=== PATIENT | male | born 1950 | race American Indian/Alaskan Native ===

== ENCOUNTER 2016-11-21 13:14 | Emergency (ER) | payer MEDICAID ==
[2016-11-21] MEDS ORDERED: TYLENOL #3 PO ONE (14:23)
--- NOTE | 2016-11-21 14:28 | Emergency Department Report ---
ED Fall HPI - General Chief Complaint: Fall Stated Complaint: FALL Time Seen by Provider: 11/21/16 14:04 Source: patient, EMS (ems notes not available at time of chart dictation), RN notes reviewed, old records reviewed Mode of arrival: Stretcher Limitations: Physical Limitation - History of Present Illness Initial Comments: This is a 66-year-old male. He is previously known to me. Patient has a past medical history of congestive heart failure, cardiomyopathy with ICD, heart disease, seizure, stroke, atrial flutter, he currently reports that he is on systemic anticoagulation; eliquis Patient reports a mechanical fall yesterday where he slipped, landed on his left knee, and landed on his back. He did not hit his head. He did not hit his neck. Prior to the fall, there was no headache, neck pain, chest pain, abdominal pain, shortness of breath. MD Complaint: fall -: Sudden Fall From: standing When Fall Occurred: # days EM[employer] (1) Fall Witnessed: no Place Fall Occurred: home Loss of Consciousness: none Prolonged Down Time?: no Symptoms Prior to Fall: none Location: back Location - Extremities: Left: Knee Severity: moderate Quality: aching Context: tripped/slipped Associated Symptoms: denies: headache, neck pain, numbness, weakness, chest paint, shortness of breath, abdominal pain, hematuria, lightheaded, vertigo, confusion - Related Data Home Medications Medication Instructions Recorded Confirmed Last Taken Atorvastatin [Lipitor] 20 mg PO DAILY 06/09/14 05/10/15 05/05/15 21:00 Isosorbide Dinitrate 30 mg PO DAILY 06/09/14 05/10/15 05/09/15 09:00 Metoprolol [Lopressor TAB] 50 mg PO BID 06/09/14 05/10/15 05/09/15 21:00 Previous Rx's Medication Instructions Recorded Last Taken Type Nitroglycerin [Nitrostat] 0.4 mg SL Q5M PRN #30 tab 06/29/14 05/09/15 23:30 Rx Apixaban [Eliquis] 5 mg PO BID #60 tablet 05/10/15 Unknown Rx Atorvastatin Calcium [Lipitor] 20 mg PO QDAY #31 tablet 05/10/15 Unknown Rx HYDROcodone/APAP 5-325 [[place] 1 each PO Q6HR PRN #10 tablet 05/10/15 Unknown Rx 5/325] levETIRAcetam [Keppra TAB] 2,000 mg PO BID #60 tablet 05/10/15 Unknown Rx Perampanel [Fycompa] 8 mg PO DAILY #30 tablet 07/04/15 Unknown Rx traMADol [Ultram 50 MG tab] 50 mg PO Q4HR PRN #20 tablet 04/11/16 Unknown Rx Allergies Allergy/AdvReac Type Severity Reaction Status Date / Time No Known Allergies Allergy Verified 11/21/16 13:29 ED Review of Systems ROS: Stated complaint: FALL Other details as noted in HPI Constitutional: denies: fever, malaise Eyes: denies: vision change ENT: denies: epistaxis Respiratory: denies: cough Cardiovascular: denies: chest pain Gastrointestinal: denies: abdominal pain Musculoskeletal: back pain, joint swelling, arthralgia, myalgia Skin: denies: lesions Neurological: weakness (chronic) ED Past Medical Hx - Past Medical History Hx Hypertension: Yes (20 yrs.; hx CVA) 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) Hx Heart Attack/AMI: Yes (2006) Hx Congestive Heart Failure: Yes Hx Diabetes: No Hx GERD: Yes Hx Liver Disease: Yes (old history) Hx Headaches / Migraines: Yes Hx Seizures: Yes (seizure Feb 2013; took seizure medicine this am) Hx Asthma: No Hx COPD: No Hx HIV: (by the feel better) Additional medical history: defibrillator; left sided weakness - Surgical History Hx Open Heart Surgery: Yes Hx Pacemaker: Yes (LEFT ) Hx Internal Defibrillator: Yes (arrhythmia-atrial tachycardia) Additional Surgical History: "heart surgery", exploratory laparotomy secondary to "busted intestines" - Social History Smoking Status: Current Every Day Smoker Substance Use Type: Alcohol - Medications Home Medications: Home Medications Medication Instructions Recorded Confirmed Last Taken Type Atorvastatin [Lipitor] 20 mg PO DAILY 06/09/14 05/10/15 05/05/15 21:00 History Isosorbide Dinitrate 30 mg PO DAILY 06/09/14 05/10/15 05/09/15 09:00 History Metoprolol [Lopressor TAB] 50 mg PO BID 06/09/14 05/10/15 05/09/15 21:00 History Nitroglycerin [Nitrostat] 0.4 mg SL Q5M PRN #30 tab 06/29/14 05/10/15 05/09/15 23:30 Rx Apixaban [Eliquis] 5 mg PO BID #60 tablet 05/10/15 Unknown Rx Atorvastatin Calcium [Lipitor] 20 mg PO QDAY #31 tablet 05/10/15 Unknown Rx HYDROcodone/APAP 5-325 [[place] 1 each PO Q6HR PRN #10 tablet 05/10/15 Unknown Rx 5/325] levETIRAcetam [Keppra TAB] 2,000 mg PO BID #60 tablet 05/10/15 Unknown Rx Perampanel [Fycompa] 8 mg PO DAILY #30 tablet 07/04/15 Unknown Rx traMADol [Ultram 50 MG tab] 50 mg PO Q4HR PRN #20 tablet 04/11/16 Unknown Rx ED Physical Exam - General Limitations: Physical Limitation General appearance: alert, in no apparent distress - Head Head exam: Present: atraumatic, normocephalic - Eye Eye exam: Present: normal appearance, EOMI. Absent: nystagmus - ENT ENT exam: Present: normal exam, normal orophraynx, mucous membranes moist, normal external ear exam - Neck Neck exam: Present: normal inspection, full ROM. Absent: tenderness, meningismus - Respiratory Respiratory exam: Present: normal lung sounds bilaterally. Absent: respiratory distress, wheezes, rales, rhonchi, stridor, chest wall tenderness - Cardiovascular Cardiovascular Exam: Present: regular rate, irregular rhythm, normal heart sounds. Absent: systolic murmur, diastolic murmur, rubs, gallop - GI/Abdominal GI/Abdominal exam: Present: soft, normal bowel sounds. Absent: distended, tenderness, guarding, rigid, pulsatile mass - Rectal Rectal exam: Present: deferred - Extremities Exam Extremities exam: Present: normal inspection, full ROM, tenderness (the left knee is tender.), normal capillary refill, other (pelvis is stable. 2+ pulses noted in 4 extremities. The compartments are soft. There is no long bony tenderness.). Absent: pedal edema, joint swelling - Back Exam Back exam: Present: normal inspection, paraspinal tenderness. Absent: tenderness - Neurological Exam Neurological exam: Present: alert, oriented X3, other (Extraocular movements intact. Tongue midline. No facial droop. Facial sensation intact to light touch in the V1, V2, V3 distribution bilaterally. 5 and 5 strength in 4 extremities.. Sensation is intact to light touch in 4 extremities.). Absent: motor sensory deficit - Psychiatric Psychiatric exam: Present: normal affect, normal mood - Skin Skin exam: Present: warm, dry, intact, normal color. Absent: rash ED Course Vital Signs 11/21/16 11/21/16 11/21/16 13:42 13:50 14:00 Temperature Pulse Rate 95 H 84 102 H Respiratory 13 20 18 Rate Blood Pressure 57/28 130/71 Blood Pressure [Right] O2 Sat by Pulse 98 99 Oximetry 11/21/16 11/21/16 11/21/16 14:08 14:10 14:20 Temperature 97.9 F Pulse Rate 84 93 H 70 Respiratory 18 18 18 Rate Blood Pressure 154/67 154/67 Blood Pressure 130/71 [Right] O2 Sat by Pulse 100 98 99 Oximetry 11/21/16 11/21/16 11/21/16 15:38 16:00 18:00 Temperature 98.5 F 97.5 F L Pulse Rate 78 78 Respiratory 14 16 16 Rate Blood Pressure Blood Pressure 142/60 145/58 [Right] O2 Sat by Pulse 98 98 Oximetry ED Medical Decision Making - Lab Data Vital Signs 11/21/16 11/21/16 11/21/16 13:42 13:50 14:00 Temperature Pulse Rate 95 H 84 102 H Respiratory 13 20 18 Rate Blood Pressure 57/28 130/71 Blood Pressure [Right] O2 Sat by Pulse 98 99 Oximetry 11/21/16 11/21/16 11/21/16 14:08 14:10 14:20 Temperature 97.9 F Pulse Rate 84 93 H 70 Respiratory 18 18 18 Rate Blood Pressure 154/67 154/67 Blood Pressure 130/71 [Right] O2 Sat by Pulse 100 98 99 Oximetry 11/21/16 15:38 Temperature Pulse Rate Respiratory 14 Rate Blood Pressure Blood Pressure [Right] O2 Sat by Pulse Oximetry - EKG Data -: EKG Interpreted by Wy - EKG Data 11/21/16 17:04 atrial flutter, variable conduction, normal axis, QTC 422 ms, nonspecific ST abnormalities in the anteroseptal leads, appears unchanged when compared to prior from 2015 - Radiology Data Radiology results: report reviewed, image reviewed Noncontrast CT scan of the brain negative for traumatic disease. Noncontrast CT scan of the abdomen and pelvis negative. X-ray of the left knee suggests medial eminence fracture. X-ray of the pelvis negative for fracture; this is specifically discussed with the radiologist of record, Dr. Liriano, who compared the patient's x-ray to CAT scan. - Medical Decision Making Differential diagnosis: Fracture, dislocation, sprain, strain, intracranial hemorrhage, retroperitoneal hematoma Assessment and plan: 66-year-old male status post mechanical fall last night. He is afebrile with through sure vital signs with no chest pain or shortness of breath. EKG morphologically abnormal, appears unchanged when compared to prior , with the exception that he is now in flutter, and he takes systemic anticoagulation. He has a GCS of 15, with an NIH score of 0, and is clinically sober at this time. CT scan of the brain and abdomen/pelvis exclude retroperitoneal hematoma and intracranial hemorrhage. Patient will be placed in a knee immobilizer, he will be given crutches, and he is instructed to follow up with outpatient orthopedics. Return precautions are reviewed. Critical care attestation.: If time is entered above; I have spent that time in minutes in the direct care of this critically ill patient, excluding procedure time. ED Disposition Clinical Impression: Left knee pain, Fall Disposition: DC-01 TO HOME OR SELFCARE Is pt being admited?: No Does the pt Need Aspirin: No Condition: Stable Instructions: Arthralgia (ED) Additional Instructions: X-ray demonstrated probable left knee small medial eminence fracture. Weightbearing as tolerated, use the crutches and knee immobilizer as directed. Follow-up with the orthopedic surgeon as directed. Follow-up with orthopedic surgeon within the next week. Follow up with her rope cutter within the next month. Return to the ER right away with neck pain, chest pain, shortness of breath, abdominal pain, confusion, intractable nausea or vomiting, inability to tolerate liquid feeds. Take acetaminophen, 650 mg, every 4-6 hours as needed for pain. Referrals: PRIMARY CARE, [Primary Care Provider] - 3-5 Days TEE PALMA MD [Staff Physician] - 3-5 Days VEENA FIELDS MD [Staff Physician] - 3-5 Days
--- NOTE | 2016-11-21 15:11 | Cat Scan Report ---
CT HEAD WITHOUT CONTRAST INDICATION: Fall. COMPARISON: 03/05/2013. FINDINGS: Noncontrast head CT again demonstrates approximately 3.5 x 5.5 cm frontoparietal encephalomalacia superiorly, axial image 44, series 2 and a smaller, approximately 2.5 cm right frontal encephalomalacia more anteriorly, image 37. White matter hypodensities on the right and mild ex-vacuo dilatation of the right lateral ventricle again noted. Normal remainder ventricles. Stable enlarged sulci with bifrontal extra-axial CSF spaces measuring approximately 1 cm, axial image 33, series 2. No definite acute infarct, hemorrhage, mass effect or midline shift. Normal posterior fossa with preserved basilar cisterns. Unremarkable eye globes. Bilateral orbital floor old deformity/fractures again not excluded. An opacified ethmoid air cell on the left posteriorly again seen. Clear remainder imaged paranasal sinuses and mastoid air cells. Extensive atherosclerotic ICA and vertebral artery calcifications bilaterally. Normal calvarium and scalp. Few missing teeth. CONCLUSION: No acute intracranial CT abnormality or significant interval change, as detailed above. Thank you for the opportunity to participate in this patient's care.
--- NOTE | 2016-11-21 15:25 | Cat Scan Report ---
CT ABDOMEN AND PELVIS WITHOUT CONTRAST INDICATION: Fall. COMPARISON: None similar. FINDINGS: Noncontrast abdomen and pelvis CT performed. LUNG BASES: Mild cardiomegaly. Streak artifact from pacer leads. Few coronary and aortic atherosclerotic calcifications. Nonspecific distal esophageal wall prominence/thickening, not excluded for gastroesophageal reflux and/or hiatal hernia, amongst others. ABDOMEN: Please note that sensitivity to detect small visceral lesions is limited due to the absence of intravenous or oral contrast. Approximately 3 cm posterior right hepatic heterogeneous calcification as on axial image 103, series 2. Few other small hepatic calcifications also noted measuring up to 6 mm as on axial image 124. Otherwise grossly unremarkable unenhanced liver, spleen, gallbladder, pancreas, adrenals, nonaneurysmal abdominal aorta with atherosclerotic aortoiliac calcifications and IVC. At least 2 nonobstructing renal calculi noted inferiorly measuring up to 2 mm. Unremarkable left kidney. Retroaortic left renal vein. No ascites or size significant adenopathy. Nonopacified GI tract evaluation limited, though grossly nonobstructive. Possible appendectomy changes. PELVIS: Approximately 1.3 cm benign, peripheral calcificatio/density in the left lower quadrant on axial image 275, series 2. Small prostatic calcifications. Few pelvic phleboliths. Grossly unremarkable non-opacified urinary bladder, seminal vesicles, prostate and rectosigmoid. No free fluid or significant adenopathy. Sternotomy wires. Slight lumbar degenerative spurring. CONCLUSION: No acute CT abnormality on this limited, unenhanced exam with various incidental findings, as above. Thank you for the opportunity to participate in this patient's care.
--- NOTE | 2016-11-21 15:32 | XRay Report ---
Pelvis: Fall, pain. AP view of the pelvis raises suspicion of a possible fracture at the right ischial acetabular junction. On one projection there is suspicion that there could be a cortical fracture of the lateral femoral head on the right but this is not supported on the second projection. No additional findings. Impressions: Suspicion of right pelvic fracture. Clinical correlation to this side recommended. Left knee: Fall, pain. There is suspicion of a fracture line in the medial eminence of the tibial plateau. The knee joint space is otherwise unremarkable. The articular margins are smooth and there is good alignment and preservation of the joint spaces. The bones are well-mineralized. There is irregular sclerosis of the tibial metaphysis most likely representing an infarct. There is significant vascular calcification. Impression: Suspicion of medial eminence fracture.
[2016-11-21 18:23] VITALS: BP 145/58
== END 2016-11-21 18:00 | disposition home or self-care (01) ==
LOC: ED 13:14
DX: M25.562 Pain in left knee (principal); I10 Essential (primary) hypertension; I25.2 Old myocardial infarction; I50.9 Heart failure, unspecified; K21.9 Gastro-esophageal reflux disease without esophagitis; G43.909 Migraine, unspecified, not intractable, without status migrainosus; F17.200 Nicotine dependence, unspecified, uncomplicated; W18.30XA Fall on same level, unspecified, initial encounter; Y93.9 Activity, unspecified; Y92.9 Unspecified place or not applicable; Y99.9 Unspecified external cause status
CPT/HCPCS: 70450; 72170; 74176; 93005; 93010

== ENCOUNTER 2017-03-31 10:07 | Inpatient (IN) | payer MEDICAID ==
[2017-03-31] MEDS ORDERED: ATIVAN ONE (11:09)
[2017-03-31] MEDS ORDERED: KEPPRA 1,000 MG/NS 0.75% 100ML 1,000 MG/100 ML BAG IV ONE ×2 (11:10→11:11)
[2017-03-31] MEDS ORDERED: ATIVAN IV ONE (11:11)
[2017-03-31] MEDS ORDERED: NORMODYNE IV ONE (11:13)
--- NOTE | 2017-03-31 11:40 | Cat Scan Report ---
CT HEAD WITHOUT CONTRAST: HISTORY: Stroke. TECHNIQUE: Sequential 2.5mm CT images. COMPARISON: 11/21/16. FINDINGS: Mild diffuse volume loss, mild chronic white matter changes, and multiple chronic infarcts in the right MCA distribution are unchanged since the previous examination. The largest area of infarct in the right parietal lobe measures up to 6.1 x 4.0 cm in axial plane There is no evidence for hemorrhage, mass, extra-axial fluid collection or hydrocephalus. The calvarium, visualized paranasal sinuses and mastoid air cells are clear. IMPRESSION: Chronic findings as outlined above which are unchanged since 11/21/16. No acute intracranial process appreciated. These findings were discussed with Dr. Parra in the emergency department at 1133 hrs.
--- NOTE | 2017-03-31 12:06 | XRay Report ---
AP CHEST: HISTORY: Hypertension Pacemaker device is unchanged in 11/14/14. Mild cardiomegaly is stable. Mild pulmonary venous congestion has developed. The lungs are clear. No evidence for pneumonia, CHF or pneumothorax. IMPRESSION: Mild cardiomegaly and pulmonary venous congestion but no CHF.
[2017-03-31 12:16] LABS: Basophils % (Auto) 0.5 % (0.0-1.8); Eosinophils % (Auto) 0.3 % (0.0-4.3); Hematocrit 48.5 % (35.5-45.6); Mean Corpuscular HGB Conc 33 % (32-34); Mean Corpuscular Hemoglobin 34 pg (28-32); Mean Corpuscular Volume 102 fl (84-94); Platelet Count 177 K/mm3 (140-440); Red Blood Count 4.78 M/mm3 (3.65-5.03); Red Cell Distribution Width 14.4 % (13.2-15.2); White Blood Count 9.4 K/mm3 (4.5-11.0)
[2017-03-31 12:16] LABS: Urine Drugs of Abuse Note Disclamer
[2017-03-31 12:32] LABS: INR 1.24 (0.87-1.13)
[2017-03-31 12:33] LABS: Partial Thromboplastin Time 33.5 Sec. (24.2-36.6)
[2017-03-31 12:37] LABS: Creatine Kinase MB 3.3 ng/mL (0.0-4.0)
[2017-03-31 12:37] LABS: Bacteria,Urine 1+ /HPF (Negative); Bilirubin,Urine NEG (Negative); Blood,Urine SM (Negative); Ketones,Urine TR mg/dL (Negative); Leukocyte Esterase,Urine TR (Negative); Nitrite,Urine NEG (Negative); Urobilinogen,Urine < 2.0 mg/dL (<2.0)
[2017-03-31 12:39] LABS: Anion Gap 23 mmol/L; BUN/Creatinine Ratio 13; Blood Urea Nitrogen 13 mg/dL (9-20); Calcium 8.5 mg/dL (8.4-10.2); Carbon Dioxide 20 mmol/L (22-30); Chloride 100.1 mmol/L (98-107); Creatine Kinase 117 units/L (55-170); Glucose 133 mg/dL (75-100); Potassium 3.8 mmol/L (3.6-5.0); Sodium 139 mmol/L (137-145)
[2017-03-31] MEDS ORDERED: VITAMIN B-1 100 MG, FOLVITE 1 MG, INFUVITE 10 ML in NACL 0.9% 1000 ML 1,000 ML IV ONE (13:02)
--- NOTE | 2017-03-31 13:12 | Emergency Department Report ---
ED General Adult HPI - General Chief complaint: Seizure Stated complaint: SEIZURE Time Seen by Provider: 03/31/17 11:08 Source: patient, EMS Mode of arrival: Stretcher Limitations: No Limitations - History of Present Illness Initial comments: This patient was brought to my attention by the charge nurse who had a suspicion of pseudoseizures. He was in the hallway at that time. He was having left sided focal seizures and was awake. He also had apparent left- sided weakness. He was still having active ecstasy although it was partial. He was able to tell me that he is a daily drinker of beer. He was also able to tell me that he takes Keppra and that he's had seizures just like this before. In fact he was able to state that he had previous strokes and ordinarily had left-sided weakness but is able to ambulate. With all of this going on and in the interest of expediting his care because stroke was called. 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 He is not a candidate for TPA. However again his care was expedited. He was given Ativan a Keppra IV which was effective in controlling his apparent focal seizures. -: minutes(s), hour(s) Severity scale (0 -10): 0 - Related Data Home Medications Medication Instructions Recorded Confirmed Last Taken Atorvastatin [Lipitor] 20 mg PO DAILY 06/09/14 05/10/15 05/05/15 21:00 Metoprolol [Lopressor TAB] 50 mg PO BID 06/09/14 05/10/15 05/09/15 21:00 Amiodarone [Cordarone 200 MG TAB] 200 mg PO QDAY 03/31/17 03/31/17 Unknown ISOSORBIDE MONOnitrate [Imdur ER] 30 mg PO QDAY 03/31/17 03/31/17 03/31/17 Lisinopril [Zestril TAB] 2.5 mg PO QDAY 03/31/17 03/31/17 03/31/17 Previous Rx's Medication Instructions Recorded Last Taken Type Nitroglycerin [Nitrostat] 0.4 mg SL Q5M PRN #30 tab 06/29/14 05/09/15 23:30 Rx Apixaban [Eliquis] 5 mg PO BID #60 tablet 05/10/15 Unknown Rx levETIRAcetam [Keppra TAB] 2,000 mg PO BID #60 tablet 05/10/15 Unknown Rx Allergies Allergy/AdvReac Type Severity Reaction Status Date / Time No Known Allergies Allergy Verified 11/21/16 13:29 ED Review of Systems ROS: Stated complaint: SEIZURE Other details as noted in HPI Constitutional: denies: chills, fever Eyes: denies: eye pain, eye discharge, vision change ENT: denies: ear pain, throat pain Respiratory: denies: cough, shortness of breath, wheezing Cardiovascular: denies: chest pain, palpitations Endocrine: no symptoms reported Gastrointestinal: denies: abdominal pain, nausea, diarrhea Genitourinary: denies: urgency, dysuria Musculoskeletal: denies: back pain, joint swelling, arthralgia Skin: denies: rash, lesions Neurological: as per HPI, other. 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) Hx Heart Attack/AMI: Yes (2006) Hx Congestive Heart Failure: Yes Hx Diabetes: No Hx GERD: Yes Hx Liver Disease: Yes (old history) Hx Headaches / Migraines: Yes Hx Seizures: Yes (seizure Feb 2013; took seizure medicine this am) Hx Asthma: No Hx COPD: No Hx HIV: (by the feel better) Additional medical history: defibrillator; left sided weakness - Surgical History Past Surgical History?: Yes Hx Open Heart Surgery: Yes Hx Pacemaker: Yes (LEFT ) Hx Internal Defibrillator: Yes (arrhythmia-atrial tachycardia) Additional Surgical History: "heart surgery", exploratory laparotomy secondary to "busted intestines" - Social History Smoking Status: Current Every Day Smoker Substance Use Type: Alcohol - Medications Home Medications: Home Medications Medication Instructions Recorded Confirmed Last Taken Type Atorvastatin [Lipitor] 20 mg PO DAILY 06/09/14 05/10/15 05/05/15 21:00 History Metoprolol [Lopressor TAB] 50 mg PO BID 06/09/14 05/10/15 05/09/15 21:00 History Nitroglycerin [Nitrostat] 0.4 mg SL Q5M PRN #30 tab 06/29/14 05/10/15 05/09/15 23:30 Rx Apixaban [Eliquis] 5 mg PO BID #60 tablet 05/10/15 Unknown Rx levETIRAcetam [Keppra TAB] 2,000 mg PO BID #60 tablet 05/10/15 Unknown Rx Amiodarone [Cordarone 200 MG TAB] 200 mg PO QDAY 03/31/17 03/31/17 Unknown History ISOSORBIDE MONOnitrate [Imdur ER] 30 mg PO QDAY 03/31/17 03/31/17 03/31/17 History Lisinopril [Zestril TAB] 2.5 mg PO QDAY 03/31/17 03/31/17 03/31/17 History ED Physical Exam - General General appearance: alert, in no apparent distress - Head Head exam: Present: atraumatic, normocephalic - Eye Eye exam: Present: normal appearance. Absent: scleral icterus - ENT ENT exam: Present: mucous membranes moist - Neck Neck exam: Present: normal inspection. Absent: tenderness, meningismus - Respiratory Respiratory exam: Present: normal lung sounds bilaterally. Absent: respiratory distress - Cardiovascular Cardiovascular Exam: Present: regular rate, normal rhythm. Absent: systolic murmur, diastolic murmur, rubs, gallop - GI/Abdominal GI/Abdominal exam: Present: soft, normal bowel sounds. Absent: distended, tenderness, guarding, rebound - Rectal Rectal exam: Present: deferred - Extremities Exam Extremities exam: Present: normal inspection - Back Exam Back exam: Present: normal inspection - Neurological Exam Neurological exam: Present: alert, oriented X3, motor sensory deficit (the patient does appear to have a left hemiparesis although he is having tonic- clonic movements at the time of my exam). Absent: CN II-XII intact (perhaps a very mild left facial paresis vs asymmetry) - Psychiatric Psychiatric exam: Present: anxious, flat affect - Skin Skin exam: Present: warm, dry, intact, normal color. Absent: rash ED Course Vital Signs 03/31/17 03/31/17 03/31/17 10:10 11:35 12:00 Pulse Rate 121 H 86 91 H Respiratory 22 19 19 Rate Blood Pressure 195/115 105/60 101/61 O2 Sat by Pulse 93 82 L 92 Oximetry 03/31/17 03/31/17 03/31/17 12:01 13:00 14:00 Pulse Rate 78 76 Respiratory 22 20 18 Rate Blood Pressure 105/66 111/66 O2 Sat by Pulse 93 100 99 Oximetry 03/31/17 14:30 Pulse Rate 71 Respiratory 15 Rate Blood Pressure 99/61 O2 Sat by Pulse 100 Oximetry - Reevaluation(s) Reevaluation #1: Was given Ativan and Keppra. His seizures resolved. A CT of his head that showed 3 old lacunar infarcts in the MCA area on the right which would clinically correlate with left-sided weakness. On serial neurological exam the patient had just 4+ over 5 left-sided weakness and really not a lot of drift either. I do think this is clearly chronic. The patient confirms that he has been weak in the left side since his previous stroke. His weakness has improved since his apparent focal seizures. 03/31/17 15:51 ED Medical Decision Making - Lab Data Result diagrams: 03/31/17 11:43 03/31/17 11:43 Laboratory Results - last 24 hr 03/31/17 03/31/17 03/31/17 11:43 11:43 11:43 WBC 9.4 RBC 4.78 Hgb 16.0 H Hct 48.5 H MCV 102 H MCH 34 H MCHC 33 RDW 14.4 Plt Count 177 Lymph % (Auto) 9.3 L Powell % (Auto) 6.9 Eos % (Auto) 0.3 Baso % (Auto) 0.5 Lymph # 0.9 L Powell # 0.7 Eos # 0.0 Baso # 0.1 Seg Neutrophils % 83.0 H Seg Neutrophils # 7.8 H PT 16.3 H INR 1.24 H APTT 33.5 Thrombin Time 17.2 Sodium 139 Potassium 3.8 Chloride 100.1 Carbon Dioxide 20 L Anion Gap 23 BUN 13 Creatinine 1.0 Estimated GFR > 60 BUN/Creatinine Ratio 13 Glucose 133 H POC Glucose Calcium 8.5 Magnesium Ammonia Total Creatine Kinase 117 CK-MB (CK-2) 3.3 CK-MB (CK-2) Rel Index 2.8 Troponin T 0.024 NT-Pro-B Natriuret Pep Urine Color Urine Turbidity Urine pH Ur Specific Bulger Urine Protein Urine Glucose (UA) Urine Ketones Urine Blood Urine Nitrite Urine Bilirubin Urine Urobilinogen Ur Leukocyte Esterase Urine WBC (Auto) Urine RBC (Auto) U Epithel Cells (Auto) Urine Bacteria (Auto) Urine Opiates Screen Urine Methadone Screen Ur Barbiturates Screen Ur Phencyclidine Scrn Ur Amphetamines Screen U Benzodiazepines Scrn Urine Cocaine Screen U Marijuana (THC) Screen Plasma/Serum Alcohol Blood Type Antibody Screen 03/31/17 03/31/17 03/31/17 11:43 11:43 11:43 WBC RBC Hgb Hct MCV MCH MCHC RDW Plt Count Lymph % (Auto) Powell % (Auto) Eos % (Auto) Baso % (Auto) Lymph # Powell # Eos # Baso # Seg Neutrophils % Seg Neutrophils # PT INR APTT Thrombin Time Sodium Potassium Chloride Carbon Dioxide Anion Gap BUN Creatinine Estimated GFR BUN/Creatinine Ratio Glucose POC Glucose Calcium Magnesium 2.00 Ammonia Total Creatine Kinase CK-MB (CK-2) CK-MB (CK-2) Rel Index Troponin T NT-Pro-B Natriuret Pep Urine Color Urine Turbidity Urine pH Ur Specific Bulger Urine Protein Urine Glucose (UA) Urine Ketones Urine Blood Urine Nitrite Urine Bilirubin Urine Urobilinogen Ur Leukocyte Esterase Urine WBC (Auto) Urine RBC (Auto) U Epithel Cells (Auto) Urine Bacteria (Auto) Urine Opiates Screen Urine Methadone Screen Ur Barbiturates Screen Ur Phencyclidine Scrn Ur Amphetamines Screen U Benzodiazepines Scrn Urine Cocaine Screen U Marijuana (THC) Screen Plasma/Serum Alcohol < 0.01 Blood Type B POSITIVE Antibody Screen Negative 03/31/17 03/31/17 03/31/17 11:43 11:43 11:50 WBC RBC Hgb Hct MCV MCH MCHC RDW Plt Count Lymph % (Auto) Powell % (Auto) Eos % (Auto) Baso % (Auto) Lymph # Powell # Eos # Baso # Seg Neutrophils % Seg Neutrophils # PT INR APTT Thrombin Time Sodium Potassium Chloride Carbon Dioxide Anion Gap BUN Creatinine Estimated GFR BUN/Creatinine Ratio Glucose POC Glucose 136 H Calcium Magnesium Ammonia 82.0 H Total Creatine Kinase CK-MB (CK-2) CK-MB (CK-2) Rel Index Troponin T NT-Pro-B Natriuret Pep 555.8 Urine Color Urine Turbidity Urine pH Ur Specific Bulger Urine Protein Urine Glucose (UA) Urine Ketones Urine Blood Urine Nitrite Urine Bilirubin Urine Urobilinogen Ur Leukocyte Esterase Urine WBC (Auto) Urine RBC (Auto) U Epithel Cells (Auto) Urine Bacteria (Auto) Urine Opiates Screen Urine Methadone Screen Ur Barbiturates Screen Ur Phencyclidine Scrn Ur Amphetamines Screen U Benzodiazepines Scrn Urine Cocaine Screen U Marijuana (THC) Screen Plasma/Serum Alcohol Blood Type Antibody Screen 03/31/17 03/31/17 12:04 12:04 WBC RBC Hgb Hct MCV MCH MCHC RDW Plt Count Lymph % (Auto) Powell % (Auto) Eos % (Auto) Baso % (Auto) Lymph # Powell # Eos # Baso # Seg Neutrophils % Seg Neutrophils # PT INR APTT Thrombin Time Sodium Potassium Chloride Carbon Dioxide Anion Gap BUN Creatinine Estimated GFR BUN/Creatinine Ratio Glucose POC Glucose Calcium Magnesium Ammonia Total Creatine Kinase CK-MB (CK-2) CK-MB (CK-2) Rel Index Troponin T NT-Pro-B Natriuret Pep Urine Color Yellow Urine Turbidity Clear Urine pH 5.0 Ur Specific Bulger 1.020 Urine Protein 30 mg/dl Urine Glucose (UA) Neg Urine Ketones Tr Urine Blood Sm Urine Nitrite Neg Urine Bilirubin Neg Urine Urobilinogen < 2.0 Ur Leukocyte Esterase Tr Urine WBC (Auto) 6.0 Urine RBC (Auto) 7.0 U Epithel Cells (Auto) 1.0 Urine Bacteria (Auto) 1+ Urine Opiates Screen Presumptive negative Urine Methadone Screen Presumptive negative Ur Barbiturates Screen Presumptive negative Ur Phencyclidine Scrn Presumptive negative Ur Amphetamines Screen Presumptive negative U Benzodiazepines Scrn Presumptive negative Urine Cocaine Screen Presumptive negative U Marijuana (THC) Screen Presumptive negative Plasma/Serum Alcohol Blood Type Antibody Screen - EKG Data -: EKG Interpreted by Me EKG shows normal: sinus rhythm Rate: normal - EKG Data Interpretation: LVH, other (for lateral ST depression may be related to LVH slight high lateral T-wave inversion. Mild intraventricular conduction delay may be secondary to LVH.) - Radiology Data Radiology results: report reviewed interpreted by me: Chest x-ray shows pulmonary venous congestion but according to the radiologist no CHF. CT of the head shows old lacunar infarcts but no acute process. Critical care attestation.: If time is entered above; I have spent that time in minutes in the direct care of this critically ill patient, excluding procedure time. ED Disposition Clinical Impression: Hx of CABG, Focal seizures, Chronic liver disease, Hyperammonemia, Labile hypertension Cardiomyopathy Qualifiers: Cardiomyopathy type: unspecified Qualified Code(s): I42.9 - Cardiomyopathy, unspecified Disposition: 09 OP ADMIT IP TO THIS HOSP Is pt being admited?: Yes Does the pt Need Aspirin: Yes Condition: Stable Instructions: Hypertension (ED) Time of Disposition: 15:59
--- NOTE | 2017-03-31 14:01 | History and Physical Report ---
History of Present Illness Chief complaint: I had a seizure History of present illness: 66 YO Male with HTN, CVA with LHP, Liver Disease, CAD S/P CABG, Nicotine Dependence, ETOH Abuse, Seizure DO, CHF presents to ED for evaluation. Pt states that he experienced multiple seizures today. Pt denies fever, chills, CP , Palpitations, NVD, Syncope, Falls, Rash, leg pain, leg swelling, calf pain, hemoptysis, prolonged immobility, trauma, prolonged air/car travel, cough, recent ill contacts. Pt seen and evaluated in ED and found to have status epilepticus, and loaded with Keppra. Pt states that he drinks multiple beers daily, and his last drink was a few days ago. Pt denies auditory or visual hallucinations, tremors, diaphoresis. Past History Past Medical History: acute [place], GERD, heart failure, hypertension, migraines, seizures Past Surgical History: CABG, bowel surgery Social history: single Family history: hypertension Medications and Allergies Allergies Allergy/AdvReac Type Severity Reaction Status Date / Time No Known Allergies Allergy Verified 11/21/16 13:29 Home Medications Medication Instructions Recorded Confirmed Last Taken Type Atorvastatin [Lipitor] 20 mg PO DAILY 06/09/14 03/31/17 05/05/15 21:00 History Metoprolol [Lopressor TAB] 25 mg PO BID 06/09/14 03/31/17 05/09/15 21:00 History Nitroglycerin [Nitrostat] 0.4 mg SL Q5M PRN #30 tab 06/29/14 03/31/17 05/09/15 23:30 Rx Apixaban [Eliquis] 5 mg PO BID #60 tablet 05/10/15 03/31/17 03/31/17 Rx levETIRAcetam [Keppra TAB] 2,000 mg PO BID #60 tablet 05/10/15 03/31/17 Rx Amiodarone [Cordarone 200 MG TAB] 200 mg PO QDAY 03/31/17 03/31/17 Unknown History ISOSORBIDE MONOnitrate [Imdur ER] 30 mg PO QDAY 03/31/17 03/31/17 03/31/17 History Lisinopril [Zestril TAB] 2.5 mg PO QDAY 03/31/17 03/31/17 03/31/17 History Active Meds: Active Medications Thiamine HCl 100 mg/ Folic Acid 1 mg/ Multivitamins/Minerals 10 ml/ Sodium Chloride 1,011.2 mls @ 250 mls/hr IV ONCE.ED ONE Stop: 03/31/17 17:04 Last Admin: 03/31/17 12:50 Dose: 250 mls/hr Review of Systems Constitutional: no weight loss, no weight gain, no fever, no chills Ears, nose, mouth and throat: no ear pain, no ear discharge, no tinnitis, no decreased hearing, no nose pain, no nasal congestion Cardiovascular: no chest pain, no orthopnea, no palpitations, no rapid/ irregular heart beat, no edema Respiratory: no cough, no cough with sputum, no excessive sputum, no hemoptysis , no shortness of breath Gastrointestinal: no abdominal pain, no nausea, no vomiting, no diarrhea Genitourinary Male: no dysuria, no hematuria, no flank pain, no discharge, no urinary frequency Rectal: no pain, no incontinence, no bleeding Musculoskeletal: no neck stiffness, no neck pain, no shooting arm pain, no arm numbness/tingling, no low back pain Integumentary: no rash, no pruritis, no redness, no sores, no wounds Neurological: seizures, no head injury, no transient paralysis, no paralysis, no parathesias, no tremors Psychiatric: no anxiety, no memory loss, no change in sleep habits, no sleep disturbances, no insomnia Endocrine: no cold intolerance, no heat intolerance, no polyphagia, no excessive thirst, no polydipsia, no polyuria, no nocturia Hematologic/Lymphatic: no easy bruising, no easy bleeding Allergic/Immunologic: no urticaria, no allergic rhinitis, no wheezing Exam - Constitutional Vitals: Temp Pulse Resp BP Pulse Ox 78 20 105/66 100 03/31/17 13:00 03/31/17 13:00 03/31/17 13:00 03/31/17 13:00 General appearance: Present: mild distress - EENT Eyes: Present: PERRL ENT: hearing intact, clear oral mucosa - Neck Neck: Present: supple, normal ROM - Respiratory Respiratory effort: normal Respiratory: bilateral: CTA - Cardiovascular Heart Sounds: Present: S1 & S2. Absent: rub, click - Extremities Extremities: pulses symmetrical, No edema Peripheral Pulses: within normal limits - Abdominal General gastrointestinal: Present: soft, non-tender, non-distended, normal bowel sounds Male genitourinary: Present: normal - Integumentary Integumentary: Present: clear, warm, dry - Musculoskeletal Musculoskeletal: gait normal, strength equal bilaterally - Psychiatric Psychiatric: appropriate mood/affect, intact judgment & insight - Neurologic Neurologic: CNII-XII intact, moves all extremities Results - Labs CBC & Chem 7: 03/31/17 11:43 12 11:43 Labs: Abnormal lab results 03/31/17 03/31/17 03/31/17 Range/Units 11:43 11:43 11:43 Hgb 16.0 H (11.8-15.2) gm/dl Hct 48.5 H (35.5-45.6) % MCV 102 H (84-94) fl MCH 34 H (28-32) pg Lymph % (Auto) 9.3 L (13.4-35.0) % Lymph # 0.9 L (1.2-5.4) K/mm3 Seg Neutrophils % 83.0 H (40.0-70.0) % Seg Neutrophils # 7.8 H (1.8-7.7) K/mm3 PT 16.3 H (12.2-14.9) Sec. INR 1.24 H (0.87-1.13) Carbon Dioxide 20 L (22-30) mmol/L Glucose 133 H (75-100) mg/dL POC Glucose (70-105) Ammonia (25-60) umol/L 03/31/17 03/31/17 Range/Units 11:43 11:50 Hgb (11.8-15.2) gm/dl Hct (35.5-45.6) % MCV (84-94) fl MCH (28-32) pg Lymph % (Auto) (13.4-35.0) % Lymph # (1.2-5.4) K/mm3 Seg Neutrophils % (40.0-70.0) % Seg Neutrophils # (1.8-7.7) K/mm3 PT (12.2-14.9) Sec. INR (0.87-1.13) Carbon Dioxide (22-30) mmol/L Glucose (75-100) mg/dL POC Glucose 136 H (70-105) Ammonia 82.0 H (25-60) umol/L Assessment and Plan - Patient Problems (1) Status epilepticus Current Visit: Yes Status: Acute Plan to address problem: CT Head, keppra loading, supportive care, neuro checks, if recurrent seizure with consider adding tegretol. (2) CHF (congestive heart failure) Current Visit: Yes Status: Acute Qualifiers: Congestive heart failure type: systolic Congestive heart failure chronicity : chronic Qualified Code(s): I50.22 - Chronic systolic (congestive) heart failure Plan to address problem: Afterload reduction, fluid restriction, monitor uop q shift to ensure negative fluid balance, BNP, supportive care, low sodium diet, (3) GERD (gastroesophageal reflux disease) Current Visit: Yes Status: Acute Plan to address problem: PPi therapy (4) Migraine Current Visit: Yes Status: Acute Plan to address problem: CT head, neuro checks, supportive care. (5) Moderate alcohol withdrawal delirium Current Visit: Yes Status: Acute Plan to address problem: thiamine, folic acid, multivitamin daily, ciwa protocol (6) Atrial fibrillation and flutter Current Visit: Yes Status: Acute Plan to address problem: therapeutic anticoagulation with eliquis, and rate control with amiodarone, supportive care. (7) DVT prophylaxis Current Visit: Yes Status: Acute
[2017-03-31] MEDS ORDERED: MILK OF MAGNESIA PO PRN (14:04)
[2017-03-31] MEDS ORDERED: DULCOLAX PR PRN (14:04)
[2017-03-31] MEDS ORDERED: TYLENOL PO PRN (14:04)
[2017-03-31] MEDS ORDERED: ZOFRAN IV PRN (14:04)
[2017-03-31] MEDS ORDERED: BABY ASPIRIN PO ONE (16:00)
[2017-03-31] MEDS ORDERED: ATIVAN IV PRN (17:46)
[2017-03-31] MEDS ORDERED: NITROSTAT SL PRN (17:48)
[2017-03-31] MEDS ORDERED: BABY ASPIRIN ONE (18:02)
[2017-03-31] MEDS: KEPPRA PO SCH (22:45)
[2017-03-31] MEDS: ELIQUIS PO SCH (22:45)
[2017-03-31] MEDS: LOPRESSOR PO SCH (22:48)
[2017-04-01 06:46] LABS: Alanine Aminotransferase 15 units/L (7-56); Albumin 3.9 g/dL (3.9-5); Albumin/Globulin Ratio 1.4 %; Alkaline Phosphatase 74 units/L (35-129); Total Protein 6.7 g/dL (6.3-8.2)
[2017-04-01 06:52] LABS: Bilirubin,Direct < 0.2 mg/dL (0-0.2); Bilirubin,Indirect 0.3 mg/dL
[2017-04-01] MEDS: KEPPRA PO SCH ×2 (09:55→22:30)
[2017-04-01] MEDS: FOLVITE PO SCH (09:55)
[2017-04-01] MEDS: VITAMIN B-1 PO SCH (09:55)
[2017-04-01] MEDS: ELIQUIS PO SCH ×2 (09:56→22:31)
[2017-04-01] MEDS: CORDARONE PO SCH (09:56)
[2017-04-01] MEDS: THERAGRAN Tab PO SCH (09:57)
[2017-04-01] MEDS: LOPRESSOR PO SCH ×2 (09:58→22:31)
[2017-04-01] MEDS: ZESTRIL PO SCH (09:58)
[2017-04-01] MEDS ORDERED: NON-FORMULARY (Lisinopril [Zestril Tab] 2.5 MG) PO SCH (10:00)
[2017-04-01] MEDS: IMDUR PO SCH ×2 (10:27→10:48)
[2017-04-01] MEDS ORDERED: Fluarix Quad 2017-2018(36 MOS+ IM ONE (12:00)
--- NOTE | 2017-04-01 14:51 | Progress Note ---
Assessment and Plan Assessment and plan: Patient is a 66-year-old man with history of hypertension, atrial fibrillation on Eliquis, chronic respiratory failure due to copd on home O2, CVA with mild left-sided deficits, coronary artery disease status post CABG, ICD, tobacco dependency, alcohol abuse, seizure disorder and systolic heart failure who presented with multiple seizure episodes. His last alcoholic drink was evening, he drinks 6 pack of Tamiko beer daily and smokes half a pack of cigs per day (I warned him about O2 and smoking). -Status epilepticus: treat with iv keppra, career technical counselor on compliance, consult neurology -A/c systolic heart failure: treat with diuretics -Chronic afib: treat with Eliquis -Accelerated hypertension: iv prn antihypertensives -Acute encephalopathy due to sz, resolved -Alcohol abuse: treat with CIWA and watch for withdrawals -Tobacco dependance: career technical counselor on stopping -Acute on Chronic hypoxic respiratory failure: wean back down from 4L to 2L -DVT prophylaxis: Eliquis History Interval history: Patient was seen and examined. Follow-up on current diagnosis/sz. Overnight uneventful. Patient denies any chest pain, shortness breath, nausea/vomiting or severe headaches. Imaging, nursing note, chart, labs and old chart reviewed. Discussed with patient. Hospitalist Physical - Physical exam Narrative exam: GEN: WDWN, NAD, AWAKE, ALERT, ORIENTATED x 3 HEENT: NCAT, EOMI, PERRL, OP Clear NECK: supple, no adenopathy, no thyromegaly, no JVD CVS/HEART: irreg irreg, NORMAL S1S2, NO JVD, pulses present bilaterally CHEST/LUNGS: CTA B, Symmetrical chest expansion, good air entry bilaterally GI/Abdomen: soft, NTND, good bowel sounds, no guarding or rebound /Bladder: no suprapubic tenderness, no CVA or paraspinal tenderness EXT/Skin: no c/c/e, no obvious rash MSK: FROM x 4, left extermities slightly weaker than right, gait is slow but steady Neuro: CN 2-12 grossly intact, no new focal deficits Psych: calm - Constitutional Vitals: Temp Pulse Resp BP Pulse Ox 97.9 F 60 18 105/64 97 04/01/17 07:50 04/01/17 09:58 04/01/17 10:00 04/01/17 09:58 12/09/17 07:50 Results - Labs CBC & Chem 7: 03/31/17 11:43 03/31/17 11:43 Labs: Laboratory Last Values WBC 9.4 K/mm3 (4.5-11.0) 03/31/17 11:43 RBC 4.78 M/mm3 (3.65-5.03) 03/31/17 11:43 Hgb 16.0 gm/dl (11.8-15.2) H 03/31/17 11:43 Hct 48.5 % (35.5-45.6) H 03/31/17 11:43 MCV 102 fl (84-94) H 03/31/17 11:43 MCH 34 pg (28-32) H 03/31/17 11:43 MCHC 33 % (32-34) 03/31/17 11:43 RDW 14.4 % (13.2-15.2) 03/31/17 11:43 Plt Count 177 K/mm3 (140-440) 03/31/17 11:43 Lymph % (Auto) 9.3 % (13.4-35.0) L 03/31/17 11:43 [place] % (Auto) 6.9 % (0.0-7.3) 03/31/17 11:43 Eos % (Auto) 0.3 % (0.0-4.3) 03/31/17 11:43 Baso % (Auto) 0.5 % (0.0-1.8) 03/31/17 11:43 Lymph # 0.9 K/mm3 (1.2-5.4) L 03/31/17 11:43 [place] # 0.7 K/mm3 (0.0-0.8) 03/31/17 11:43 Eos # 0.0 K/mm3 (0.0-0.4) 03/31/17 11:43 Baso # 0.1 K/mm3 (0.0-0.1) 03/31/17 11:43 Seg Neutrophils % 83.0 % (40.0-70.0) H 03/31/17 11:43 Seg Neutrophils # 7.8 K/mm3 (1.8-7.7) H 03/31/17 11:43 PT 16.3 Sec. (12.2-14.9) H 03/31/17 11:43 INR 1.24 (0.87-1.13) H 03/31/17 11:43 APTT 33.5 Sec. (24.2-36.6) 03/31/17 11:43 Thrombin Time 17.2 Sec. (15.1-19.6) 03/31/17 11:43 Sodium 139 mmol/L (137-145) 03/31/17 11:43 Potassium 3.8 mmol/L (3.6-5.0) 03/31/17 11:43 Chloride 100.1 mmol/L (98-107) 03/31/17 11:43 Carbon Dioxide 20 mmol/L (22-30) L 03/31/17 11:43 Anion Gap 23 mmol/L 03/31/17 11:43 BUN 13 mg/dL (9-20) 03/31/17 11:43 Creatinine 1.0 mg/dL (0.8-1.5) 03/31/17 11:43 Estimated GFR > 60 ml/min 03/31/17 11:43 BUN/Creatinine Ratio 13 % 03/31/17 11:43 Glucose 133 mg/dL (75-100) H 03/31/17 11:43 POC Glucose 136 (70-105) H 03/31/17 11:50 Calcium 8.5 mg/dL (8.4-10.2) 03/31/17 11:43 Magnesium 2.00 mg/dL (1.7-2.3) 03/31/17 11:43 Total Bilirubin 0.50 mg/dL (0.1-1.2) 03/31/17 11:43 Direct Bilirubin < 0.2 mg/dL (0-0.2) 03/31/17 11:43 Indirect Bilirubin 0.3 mg/dL 03/31/17 11:43 AST 27 units/L (5-40) 03/31/17 11:43 ALT 15 units/L (7-56) 03/31/17 11:43 Alkaline Phosphatase 74 units/L (35-129) 03/31/17 11:43 Ammonia 82.0 umol/L (25-60) H 03/31/17 11:43 Total Creatine Kinase 117 units/L (55-170) 03/31/17 11:43 CK-MB (CK-2) 3.3 ng/mL (0.0-4.0) 03/31/17 11:43 CK-MB (CK-2) Rel Index 2.8 (0-4) 03/31/17 11:43 Troponin T 0.024 ng/mL (0.00-0.029) 03/31/17 11:43 NT-Pro-B Natriuret Pep 555.8 pg/mL (0-900) 03/31/17 11:43 Total Protein 6.7 g/dL (6.3-8.2) 03/31/17 11:43 Albumin 3.9 g/dL (3.9-5) 03/31/17 11:43 Albumin/Globulin Ratio 1.4 % 03/31/17 11:43 Urine Color Yellow (Yellow) 03/31/17 12:04 Urine Turbidity Clear (Clear) 03/31/17 12:04 Urine pH 5.0 (5.0-7.0) 03/31/17 12:04 Ur Specific [place] 1.020 (1.003-1.030) 03/31/17 12:04 Urine Protein 30 mg/dl mg/dL (Negative) 03/31/17 12:04 Urine Glucose (UA) Neg mg/dL (Negative) 03/31/17 12:04 Urine Ketones Tr mg/dL (Negative) 03/31/17 12:04 Urine Blood Sm (Negative) 03/31/17 12:04 Urine Nitrite Neg (Negative) 03/31/17 12:04 Urine Bilirubin Neg (Negative) 03/31/17 12:04 Urine Urobilinogen < 2.0 mg/dL (<2.0) 03/31/17 12:04 Ur Leukocyte Esterase Tr (Negative) 03/31/17 12:04 Urine WBC (Auto) 6.0 /HPF (0.0-6.0) 03/31/17 12:04 Urine RBC (Auto) 7.0 /HPF (0.0-6.0) 03/31/17 12:04 U Epithel Cells (Auto) 1.0 /HPF (0-13.0) 03/31/17 12:04 Urine Bacteria (Auto) 1+ /HPF (Negative) 03/31/17 12:04 Urine Opiates Screen Presumptive negative 03/31/17 12:04 Urine Methadone Screen Presumptive negative 03/31/17 12:04 Ur Barbiturates Screen Presumptive negative 03/31/17 12:04 Ur Phencyclidine Scrn Presumptive negative 03/31/17 12:04 Ur Amphetamines Screen Presumptive negative 03/31/17 12:04 U Benzodiazepines Scrn Presumptive negative 03/31/17 12:04 Urine Cocaine Screen Presumptive negative 03/31/17 12:04 U Marijuana (THC) Screen Presumptive negative 03/31/17 12:04 Drugs of Abuse Note Disclamer 03/31/17 12:04 Plasma/Serum Alcohol < 0.01 gm% (0-0.07) 03/31/17 11:43 Blood Type B POSITIVE 03/31/17 11:43 Antibody Screen Negative 03/31/17 11:43
[2017-04-02] MEDS: ZESTRIL PO SCH (09:59)
[2017-04-02] MEDS: KEPPRA PO SCH ×2 (10:00→22:02)
[2017-04-02] MEDS: FOLVITE PO SCH (10:01)
[2017-04-02] MEDS: THERAGRAN Tab PO SCH (10:01)
[2017-04-02] MEDS: ELIQUIS PO SCH ×2 (10:01→22:02)
[2017-04-02] MEDS: LOPRESSOR PO SCH ×2 (10:01→22:03)
[2017-04-02] MEDS: CORDARONE PO SCH (10:01)
[2017-04-02] MEDS: VITAMIN B-1 PO SCH (10:09)
[2017-04-02] MEDS: IMDUR PO SCH (10:09)
--- NOTE | 2017-04-02 13:36 | Progress Note ---
Assessment and Plan Assessment and plan: Patient is a 66-year-old man with history of hypertension, atrial fibrillation on Eliquis, chronic respiratory failure due to copd on home O2, CVA with mild left-sided deficits, coronary artery disease status post CABG, ICD, tobacco dependency, alcohol abuse, seizure disorder and systolic heart failure who presented with multiple seizure episodes. His last alcoholic drink was evening, he drinks 6 pack of Tamiko beer daily and smokes half a pack of cigs per day (I warned him about O2 and smoking). -Status epilepticus: treated with iv keppra, beauty counselor on compliance, consult neurology -A/c systolic heart failure: treat with diuretics -Chronic afib: treat with Eliquis -Accelerated hypertension: iv prn antihypertensives -Acute encephalopathy due to sz, resolved -Alcohol abuse: treat with CIWA and watch for withdrawals -Tobacco dependance: beauty counselor on stopping -Acute on Chronic hypoxic respiratory failure: wean back down from 4L to 2L, now at 2.5 liters -DVT prophylaxis: Eliquis Neurology consult pending, but patient doesnt want to wait because he sees Dr. Dow as outpatient. History Interval history: Patient was seen and examined. Follow-up on current diagnosis/sz. Overnight uneventful. Patient denies any chest pain, shortness breath, nausea/vomiting or severe headaches. Imaging, nursing note, chart, labs and old chart reviewed. Discussed with patient. Hospitalist Physical - Physical exam Narrative exam: GEN: WDWN, NAD, AWAKE, ALERT, ORIENTATED x 3 HEENT: NCAT, EOMI, PERRL, OP Clear NECK: supple, no adenopathy, no thyromegaly, no JVD CVS/HEART: irreg irreg, NORMAL S1S2, NO JVD, pulses present bilaterally CHEST/LUNGS: CTA B, Symmetrical chest expansion, good air entry bilaterally GI/Abdomen: soft, NTND, good bowel sounds, no guarding or rebound /Bladder: no suprapubic tenderness, no CVA or paraspinal tenderness EXT/Skin: no c/c/e, no obvious rash MSK: FROM x 4, left extermities slightly weaker than right, gait is slow but steady Neuro: CN 2-12 grossly intact, no new focal deficits Psych: calm - Constitutional Vitals: Temp Pulse Resp BP Pulse Ox 97.9 F 66 18 122/69 97 12/10/17 08:20 04/02/17 10:09 04/02/17 10:00 04/02/17 10:09 04/02/17 10:37 Results - Labs CBC & Chem 7: 03/31/17 11:43 03/31/17 11:43 Labs: Laboratory Last Values WBC 9.4 K/mm3 (4.5-11.0) 03/31/17 11:43 RBC 4.78 M/mm3 (3.65-5.03) 03/31/17 11:43 Hgb 16.0 gm/dl (11.8-15.2) H 03/31/17 11:43 Hct 48.5 % (35.5-45.6) H 03/31/17 11:43 MCV 102 fl (84-94) H 03/31/17 11:43 MCH 34 pg (28-32) H 03/31/17 11:43 MCHC 33 % (32-34) 03/31/17 11:43 RDW 14.4 % (13.2-15.2) 03/31/17 11:43 Plt Count 177 K/mm3 (140-440) 03/31/17 11:43 Lymph % (Auto) 9.3 % (13.4-35.0) L 03/31/17 11:43 [place] % (Auto) 6.9 % (0.0-7.3) 03/31/17 11:43 Eos % (Auto) 0.3 % (0.0-4.3) 03/31/17 11:43 Baso % (Auto) 0.5 % (0.0-1.8) 03/31/17 11:43 Lymph # 0.9 K/mm3 (1.2-5.4) L 03/31/17 11:43 [place] # 0.7 K/mm3 (0.0-0.8) 03/31/17 11:43 Eos # 0.0 K/mm3 (0.0-0.4) 03/31/17 11:43 Baso # 0.1 K/mm3 (0.0-0.1) 03/31/17 11:43 Seg Neutrophils % 83.0 % (40.0-70.0) H 03/31/17 11:43 Seg Neutrophils # 7.8 K/mm3 (1.8-7.7) H 03/31/17 11:43 PT 16.3 Sec. (12.2-14.9) H 03/31/17 11:43 INR 1.24 (0.87-1.13) H 03/31/17 11:43 APTT 33.5 Sec. (24.2-36.6) 03/31/17 11:43 Thrombin Time 17.2 Sec. (15.1-19.6) 03/31/17 11:43 Sodium 139 mmol/L (137-145) 03/31/17 11:43 Potassium 3.8 mmol/L (3.6-5.0) 03/31/17 11:43 Chloride 100.1 mmol/L (98-107) 03/31/17 11:43 Carbon Dioxide 20 mmol/L (22-30) L 03/31/17 11:43 Anion Gap 23 mmol/L 03/31/17 11:43 BUN 13 mg/dL (9-20) 03/31/17 11:43 Creatinine 1.0 mg/dL (0.8-1.5) 03/31/17 11:43 Estimated GFR > 60 ml/min 03/31/17 11:43 BUN/Creatinine Ratio 13 % 03/31/17 11:43 Glucose 133 mg/dL (75-100) H 03/31/17 11:43 POC Glucose 136 (70-105) H 03/31/17 11:50 Calcium 8.5 mg/dL (8.4-10.2) 03/31/17 11:43 Magnesium 2.00 mg/dL (1.7-2.3) 03/31/17 11:43 Total Bilirubin 0.50 mg/dL (0.1-1.2) 03/31/17 11:43 Direct Bilirubin < 0.2 mg/dL (0-0.2) 03/31/17 11:43 Indirect Bilirubin 0.3 mg/dL 03/31/17 11:43 AST 27 units/L (5-40) 03/31/17 11:43 ALT 15 units/L (7-56) 03/31/17 11:43 Alkaline Phosphatase 74 units/L (35-129) 03/31/17 11:43 Ammonia 82.0 umol/L (25-60) H 03/31/17 11:43 Total Creatine Kinase 117 units/L (55-170) 03/31/17 11:43 CK-MB (CK-2) 3.3 ng/mL (0.0-4.0) 03/31/17 11:43 CK-MB (CK-2) Rel Index 2.8 (0-4) 03/31/17 11:43 Troponin T 0.024 ng/mL (0.00-0.029) 03/31/17 11:43 NT-Pro-B Natriuret Pep 555.8 pg/mL (0-900) 03/31/17 11:43 Total Protein 6.7 g/dL (6.3-8.2) 03/31/17 11:43 Albumin 3.9 g/dL (3.9-5) 03/31/17 11:43 Albumin/Globulin Ratio 1.4 % 03/31/17 11:43 Urine Color Yellow (Yellow) 03/31/17 12:04 Urine Turbidity Clear (Clear) 03/31/17 12:04 Urine pH 5.0 (5.0-7.0) 03/31/17 12:04 Ur Specific [place] 1.020 (1.003-1.030) 03/31/17 12:04 Urine Protein 30 mg/dl mg/dL (Negative) 03/31/17 12:04 Urine Glucose (UA) Neg mg/dL (Negative) 03/31/17 12:04 Urine Ketones Tr mg/dL (Negative) 03/31/17 12:04 Urine Blood Sm (Negative) 03/31/17 12:04 Urine Nitrite Neg (Negative) 03/31/17 12:04 Urine Bilirubin Neg (Negative) 03/31/17 12:04 Urine Urobilinogen < 2.0 mg/dL (<2.0) 03/31/17 12:04 Ur Leukocyte Esterase Tr (Negative) 03/31/17 12:04 Urine WBC (Auto) 6.0 /HPF (0.0-6.0) 03/31/17 12:04 Urine RBC (Auto) 7.0 /HPF (0.0-6.0) 03/31/17 12:04 U Epithel Cells (Auto) 1.0 /HPF (0-13.0) 03/31/17 12:04 Urine Bacteria (Auto) 1+ /HPF (Negative) 03/31/17 12:04 Urine Opiates Screen Presumptive negative 03/31/17 12:04 Urine Methadone Screen Presumptive negative 03/31/17 12:04 Ur Barbiturates Screen Presumptive negative 03/31/17 12:04 Ur Phencyclidine Scrn Presumptive negative 03/31/17 12:04 Ur Amphetamines Screen Presumptive negative 03/31/17 12:04 U Benzodiazepines Scrn Presumptive negative 03/31/17 12:04 Urine Cocaine Screen Presumptive negative 03/31/17 12:04 U Marijuana (THC) Screen Presumptive negative 03/31/17 12:04 Drugs of Abuse Note Disclamer 03/31/17 12:04 Plasma/Serum Alcohol < 0.01 gm% (0-0.07) 03/31/17 11:43 Blood Type B POSITIVE 03/31/17 11:43 Antibody Screen Negative 03/31/17 11:43
--- NOTE | 2017-04-02 13:39 | Discharge Summary ---
Providers - Providers Date of Admission: 03/31/17 14:04 Date of discharge: 04/04/17 Attending physician: RUBEN QUINTERO 04/02/17 13:35 Consult to Physician [CONS] Routine Reason For Exam: seizure disoder Consulting Provider: BILL GUEVARA Primary care physician: ASSISTANT SURVEYOR Hospitalization Condition: Stable Hospital course: Patient is a 66-year-old man with history of hypertension, atrial fibrillation on Eliquis, chronic respiratory failure due to copd on home O2, CVA with mild left-sided deficits, coronary artery disease status post CABG, ICD, tobacco dependency, alcohol abuse, seizure disorder and systolic heart failure who presented with multiple seizure episodes. His last alcoholic drink was evening, he drinks 6 pack of Tamiko beer daily and smokes half a pack of cigs per day (I warned him about O2 and smoking). -Status epilepticus: treated with iv keppra, financial counselor on compliance, consult neurology no acute exacerbation of CHF as reported by CXR; therefore, no diuretics given. He does have chronic systolic heart failure. -Chronic afib: treat with Eliquis -Accelerated hypertension: iv prn antihypertensives -Acute encephalopathy due to sz, resolved -Alcohol abuse: treat with CIWA and watch for withdrawals -Tobacco dependance: financial counselor on stopping -Acute on Chronic hypoxic respiratory failure: wean back down from 4L to 2L, now at 2 liters -DVT prophylaxis: [place] as outpatient. new issue is Chest pains at rest relieved by ntg: get troponin, consult cardiology, stress in am, also ordered Echo. 04/04/17: Echo pending, Academic Coordinator cancelled stress test, I called Dr. Simms to discuss, await call back. Possible d/c today. Disposition: DC- TO HOME OR SELFCARE Time spent for discharge: 35 minutes Core Measure Documentation - Palliative Care Palliative Care/ Comfort Measures: Not Applicable - Core Measures Any of the following diagnoses?: none - VTE Discharge Requirements Deep Vein Thrombosis/Pulmonary Embolism Present on Admission: No Has pt received <5 days of overlap therapy or INR<2.0: No Anticoagulant overlap therapy prescribed at discharge: No Contraindication No Overlap Therapy order at DC: Not Indicated Exam - Physical Exam Narrative exam: GEN: WDWN, NAD, AWAKE, ALERT, ORIENTATED x 3 HEENT: NCAT, EOMI, PERRL, OP Clear NECK: supple, no adenopathy, no thyromegaly, no JVD CVS/HEART: irreg irreg, NORMAL S1S2, NO JVD, pulses present bilaterally CHEST/LUNGS: CTA B, Symmetrical chest expansion, good air entry bilaterally GI/Abdomen: soft, NTND, good bowel sounds, no guarding or rebound /Bladder: no suprapubic tenderness, no CVA or paraspinal tenderness EXT/Skin: no c/c/e, no obvious rash MSK: FROM x 4, left extermities slightly weaker than right, gait is slow but steady Neuro: CN 2-12 grossly intact, no new focal deficits Psych: calm - Constitutional Vitals: Temp Pulse Resp BP Pulse Ox 97.9 F 66 18 122/69 97 04/02/17 08:20 04/02/17 10:09 04/02/17 10:00 04/02/17 10:09 04/02/17 10:37 Plan Activity: no driving until cleared by PCP (no drive until cleared by neurologist ), other (no strenous activity until cleared by pcp) Diet: low salt Follow up with: VIV MILTON MD [Referring] - 3 Days PRIMARY CARE, [Primary Care Provider] - 7 Days
[2017-04-03] MEDS: ZESTRIL PO SCH (09:44)
[2017-04-03] MEDS: FOLVITE PO SCH (09:44)
[2017-04-03] MEDS: VITAMIN B-1 PO SCH (09:44)
[2017-04-03] MEDS: IMDUR PO SCH (09:44)
[2017-04-03] MEDS: ELIQUIS PO SCH ×2 (09:45→22:40)
[2017-04-03] MEDS: KEPPRA PO SCH ×2 (09:45→22:39)
[2017-04-03] MEDS: CORDARONE PO SCH (09:45)
[2017-04-03] MEDS: THERAGRAN Tab PO SCH (09:45)
[2017-04-03] MEDS: LOPRESSOR PO SCH ×2 (09:46→22:40)
--- NOTE | 2017-04-03 13:17 | Consultation ---
History of Present Illness Consult date: 04/03/17 History of present illness: history of focal seizures recommend medical therapy as outlined OK to discharge at this point since seizure control is excellent imaging studies reviewed Past History Past Medical History: acute NV, GERD, heart failure, hypertension, migraines, seizures Past Surgical History: CABG, bowel surgery Social history: single Family history: hypertension Medications and Allergies Allergies Allergy/AdvReac Type Severity Reaction Status Date / Time No Known Allergies Allergy Verified 11/21/16 13:29 Home Medications Medication Instructions Recorded Confirmed Last Taken Type Atorvastatin [Lipitor] 20 mg PO DAILY 06/09/14 03/31/17 05/05/15 21:00 History Metoprolol [Lopressor TAB] 25 mg PO BID 06/09/14 03/31/17 05/09/15 21:00 History Nitroglycerin [Nitrostat] 0.4 mg SL Q5M PRN #30 tab 06/29/14 03/31/17 05/09/15 23:30 Rx Apixaban [Eliquis] 5 mg PO BID #60 tablet 05/10/15 03/31/17 03/31/17 Rx levETIRAcetam [Keppra TAB] 2,000 mg PO BID #60 tablet 05/10/15 03/31/17 Rx Amiodarone [Cordarone 200 MG TAB] 200 mg PO QDAY 03/31/17 03/31/17 Unknown History ISOSORBIDE MONOnitrate [Imdur ER] 30 mg PO QDAY 03/31/17 03/31/17 03/31/17 History Lisinopril [Zestril TAB] 2.5 mg PO QDAY 03/31/17 03/31/17 03/31/17 History Thiamine [Vitamin B-1] 100 mg PO QDAY #30 tablet 04/02/17 Unknown Rx Active Meds: Active Medications Acetaminophen (Tylenol) 650 mg PO Q4H PRN PRN Reason: Pain MILD(1-3)/Fever >100.5/WARE Last Admin: 03/31/17 18:07 Dose: 650 mg Amiodarone HCl (Cordarone) 200 mg PO QDAY [facility] Last Admin: 04/03/17 09:45 Dose: 200 mg Apixaban (Eliquis) 5 mg PO BID [facility] PRN Reason: Protocol Last Admin: 04/03/17 09:45 Dose: 5 mg Atorvastatin Calcium (Lipitor) 20 mg PO QHS [facility] Last Admin: 04/02/17 22:02 Dose: 20 mg Bisacodyl (Dulcolax) 10 mg IN QDAY PRN PRN Reason: Constipation unrelieved by MOM Folic Acid (Folvite) 1 mg PO QDAY [facility] Last Admin: 04/03/17 09:44 Dose: 1 mg Isosorbide Mononitrate (Imdur) 30 mg PO QDAY [facility] Last Admin: 04/03/17 09:44 Dose: 30 mg Levetiracetam (Keppra) 1,000 mg PO BID [facility] Last Admin: 04/03/17 09:45 Dose: 1,000 mg Lisinopril (Zestril) 2.5 mg PO QDAY [facility] Last Admin: 04/03/17 09:44 Dose: 2.5 mg Lorazepam (Ativan) 2 mg IV Q1HR PRN PRN Reason: CIWA-Ar 8-15 Magnesium Hydroxide (Milk Of Magnesia) 30 ml PO Q4H PRN PRN Reason: Constipation Metoprolol Tartrate (Lopressor) 25 mg PO BID [facility] Last Admin: 04/03/17 09:46 Dose: 25 mg Multivitamins (Theragran Tab) 1 each PO QDAY [facility] Last Admin: 04/03/17 09:45 Dose: 1 each Nitroglycerin (Nitrostat) 0.4 mg SL Q5M PRN PRN Reason: Chest Pain Last Admin: 04/02/17 15:37 Dose: 0.4 mg Ondansetron HCl (Zofran) 4 mg IV Q8H PRN PRN Reason: N/V unrelieved by Reglan Thiamine HCl (Vitamin B-1) 100 mg PO QDAY [facility] Last Admin: 04/03/17 09:44 Dose: 100 mg Physical Examination - Vital Signs Vital Signs: Vital Signs Pulse Resp BP Pulse Ox 121 H 22 195/115 93 03/31/17 10:10 03/31/17 10:10 03/31/17 10:10 03/31/17 10:10 Results - Laboratory Findings CBC and BMP: 03/31/17 11:43 03/31/17 11:43 Abnormal Lab Findings: Abnormal Labs 03/31/17 03/31/17 03/31/17 11:43 11:43 11:43 Hgb 16.0 H Hct 48.5 H MCV 102 H MCH 34 H Lymph % (Auto) 9.3 L Lymph # 0.9 L Seg Neutrophils % 83.0 H Seg Neutrophils # 7.8 H PT 16.3 H INR 1.24 H Carbon Dioxide 20 L Glucose 133 H POC Glucose Ammonia 03/31/17 03/31/17 11:43 11:50 Hgb Hct MCV MCH Lymph % (Auto) Lymph # Seg Neutrophils % Seg Neutrophils # PT INR Carbon Dioxide Glucose POC Glucose 136 H Ammonia 82.0 H
--- NOTE | 2017-04-03 15:48 | Progress Note ---
Assessment and Plan Assessment and plan: Patient is a 66-year-old man with history of hypertension, atrial fibrillation on Eliquis, chronic respiratory failure due to copd on home O2, CVA with mild left-sided deficits, coronary artery disease status post CABG, ICD, tobacco dependency, alcohol abuse, seizure disorder and systolic heart failure who presented with multiple seizure episodes. His last alcoholic drink was evening, he drinks 6 pack of Tamiko beer daily and smokes half a pack of cigs per day (I warned him about O2 and smoking). -Status epilepticus: treated with iv keppra, consumer credit counselor on compliance, consult neurology -A/c systolic heart failure: treat with diuretics -Chronic afib: treat with Eliquis -Accelerated hypertension: iv prn antihypertensives -Acute encephalopathy due to sz, resolved -Alcohol abuse: treat with CIWA and watch for withdrawals -Tobacco dependance: consumer credit counselor on stopping -Acute on Chronic hypoxic respiratory failure: wean back down from 4L to 2L, now at 2.5 liters -DVT prophylaxis: Mod[place] Dow as outpatient. new issue is Chest pains at rest relieved by ntg: get troponin, consult cardiology, stress in am, also ordered Echo. History Interval history: Patient was seen and examined. Follow-up on current diagnosis/sz. Overnight he c/o substernal chest pain relieved by ntg and discharge was held, currently no chest pains. Imaging, nursing note, chart, labs and old chart reviewed. Discussed with patient. Hospitalist Physical - Physical exam Narrative exam: GEN: WDWN, NAD, AWAKE, ALERT, ORIENTATED x 3 HEENT: NCAT, EOMI, PERRL, OP Clear NECK: supple, no adenopathy, no thyromegaly, no JVD CVS/HEART: irreg irreg, NORMAL S1S2, NO JVD, pulses present bilaterally CHEST/LUNGS: CTA B, Symmetrical chest expansion, good air entry bilaterally GI/Abdomen: soft, NTND, good bowel sounds, no guarding or rebound /Bladder: no suprapubic tenderness, no CVA or paraspinal tenderness EXT/Skin: no c/c/e, no obvious rash MSK: FROM x 4, left extermities slightly weaker than right, gait is slow but steady Neuro: CN 2-12 grossly intact, no new focal deficits Psych: calm - Constitutional Vitals: Temp Pulse Resp BP Pulse Ox 98.6 F 82 18 117/79 99 04/03/17 08:11 04/03/17 09:44 04/03/17 08:11 04/03/17 09:44 04/03/17 10:00 General appearance: Absent: mild distress Results - Labs CBC & Chem 7: 03/31/17 11:43 03/31/17 11:43 Labs: Laboratory Last Values WBC 9.4 K/mm3 (4.5-11.0) 03/31/17 11:43 RBC 4.78 M/mm3 (3.65-5.03) 03/31/17 11:43 Hgb 16.0 gm/dl (11.8-15.2) H 03/31/17 11:43 Hct 48.5 % (35.5-45.6) H 03/31/17 11:43 MCV 102 fl (84-94) H 03/31/17 11:43 MCH 34 pg (28-32) H 03/31/17 11:43 MCHC 33 % (32-34) 03/31/17 11:43 RDW 14.4 % (13.2-15.2) 03/31/17 11:43 Plt Count 177 K/mm3 (140-440) 03/31/17 11:43 Lymph % (Auto) 9.3 % (13.4-35.0) L 03/31/17 11:43 [place] % (Auto) 6.9 % (0.0-7.3) 03/31/17 11:43 Eos % (Auto) 0.3 % (0.0-4.3) 03/31/17 11:43 Baso % (Auto) 0.5 % (0.0-1.8) 03/31/17 11:43 Lymph # 0.9 K/mm3 (1.2-5.4) L 03/31/17 11:43 [place] # 0.7 K/mm3 (0.0-0.8) 03/31/17 11:43 Eos # 0.0 K/mm3 (0.0-0.4) 03/31/17 11:43 Baso # 0.1 K/mm3 (0.0-0.1) 03/31/17 11:43 Seg Neutrophils % 83.0 % (40.0-70.0) H 03/31/17 11:43 Seg Neutrophils # 7.8 K/mm3 (1.8-7.7) H 03/31/17 11:43 PT 16.3 Sec. (12.2-14.9) H 03/31/17 11:43 INR 1.24 (0.87-1.13) H 03/31/17 11:43 APTT 33.5 Sec. (24.2-36.6) 03/31/17 11:43 Thrombin Time 17.2 Sec. (15.1-19.6) 03/31/17 11:43 Sodium 139 mmol/L (137-145) 03/31/17 11:43 Potassium 3.8 mmol/L (3.6-5.0) 03/31/17 11:43 Chloride 100.1 mmol/L (98-107) 03/31/17 11:43 Carbon Dioxide 20 mmol/L (22-30) L 03/31/17 11:43 Anion Gap 23 mmol/L 03/31/17 11:43 BUN 13 mg/dL (9-20) 03/31/17 11:43 Creatinine 1.0 mg/dL (0.8-1.5) 03/31/17 11:43 Estimated GFR > 60 ml/min 03/31/17 11:43 BUN/Creatinine Ratio 13 % 03/31/17 11:43 Glucose 133 mg/dL (75-100) H 03/31/17 11:43 POC Glucose 136 (70-105) H 03/31/17 11:50 Calcium 8.5 mg/dL (8.4-10.2) 03/31/17 11:43 Magnesium 2.00 mg/dL (1.7-2.3) 03/31/17 11:43 Total Bilirubin 0.50 mg/dL (0.1-1.2) 03/31/17 11:43 Direct Bilirubin < 0.2 mg/dL (0-0.2) 03/31/17 11:43 Indirect Bilirubin 0.3 mg/dL 03/31/17 11:43 AST 27 units/L (5-40) 03/31/17 11:43 ALT 15 units/L (7-56) 03/31/17 11:43 Alkaline Phosphatase 74 units/L (35-129) 03/31/17 11:43 Ammonia 82.0 umol/L (25-60) H 03/31/17 11:43 Total Creatine Kinase 117 units/L (55-170) 03/31/17 11:43 CK-MB (CK-2) 3.3 ng/mL (0.0-4.0) 03/31/17 11:43 CK-MB (CK-2) Rel Index 2.8 (0-4) 03/31/17 11:43 Troponin T 0.024 ng/mL (0.00-0.029) 03/31/17 11:43 NT-Pro-B Natriuret Pep 555.8 pg/mL (0-900) 03/31/17 11:43 Total Protein 6.7 g/dL (6.3-8.2) 03/31/17 11:43 Albumin 3.9 g/dL (3.9-5) 03/31/17 11:43 Albumin/Globulin Ratio 1.4 % 03/31/17 11:43 Urine Color Yellow (Yellow) 03/31/17 12:04 Urine Turbidity Clear (Clear) 03/31/17 12:04 Urine pH 5.0 (5.0-7.0) 03/31/17 12:04 Ur Specific [place] 1.020 (1.003-1.030) 03/31/17 12:04 Urine Protein 30 mg/dl mg/dL (Negative) 03/31/17 12:04 Urine Glucose (UA) Neg mg/dL (Negative) 03/31/17 12:04 Urine Ketones Tr mg/dL (Negative) 03/31/17 12:04 Urine Blood Sm (Negative) 03/31/17 12:04 Urine Nitrite Neg (Negative) 03/31/17 12:04 Urine Bilirubin Neg (Negative) 03/31/17 12:04 Urine Urobilinogen < 2.0 mg/dL (<2.0) 03/31/17 12:04 Ur Leukocyte Esterase Tr (Negative) 03/31/17 12:04 Urine WBC (Auto) 6.0 /HPF (0.0-6.0) 03/31/17 12:04 Urine RBC (Auto) 7.0 /HPF (0.0-6.0) 03/31/17 12:04 U Epithel Cells (Auto) 1.0 /HPF (0-13.0) 03/31/17 12:04 Urine Bacteria (Auto) 1+ /HPF (Negative) 03/31/17 12:04 Urine Opiates Screen Presumptive negative 03/31/17 12:04 Urine Methadone Screen Presumptive negative 03/31/17 12:04 Ur Barbiturates Screen Presumptive negative 03/31/17 12:04 Ur Phencyclidine Scrn Presumptive negative 03/31/17 12:04 Ur Amphetamines Screen Presumptive negative 03/31/17 12:04 U Benzodiazepines Scrn Presumptive negative 03/31/17 12:04 Urine Cocaine Screen Presumptive negative 03/31/17 12:04 U Marijuana (THC) Screen Presumptive negative 03/31/17 12:04 Drugs of Abuse Note Disclamer 03/31/17 12:04 Plasma/Serum Alcohol < 0.01 gm% (0-0.07) 03/31/17 11:43 Blood Type B POSITIVE 03/31/17 11:43 Antibody Screen Negative 03/31/17 11:43
[2017-04-04] MEDS: THERAGRAN Tab PO SCH (10:00)
[2017-04-04] MEDS: VITAMIN B-1 PO SCH (10:00)
[2017-04-04] MEDS: FOLVITE PO SCH (10:00)
--- NOTE | 2017-04-04 12:17 | Progress Note ---
Assessment and Plan Assessment and plan: Patient is a 66-year-old man with history of hypertension, atrial fibrillation on Eliquis, chronic respiratory failure due to copd on home O2, CVA with mild left-sided deficits, coronary artery disease status post CABG, ICD, tobacco dependency, alcohol abuse, seizure disorder and systolic heart failure who presented with multiple seizure episodes. His last alcoholic drink was evening, he drinks 6 pack of Tamiko beer daily and smokes half a pack of cigs per day (I warned him about O2 and smoking). -Status epilepticus: treated with iv keppra, mortgage counselor on compliance, consult neurology no acute exacerbation of CHF as reported by CXR; therefore, no diuretics given. He does have chronic systolic heart failure. -Chronic afib: treat with Eliquis -Accelerated hypertension: iv prn antihypertensives -Acute encephalopathy due to sz, resolved -Alcohol abuse: treat with CIWA and watch for withdrawals -Tobacco dependance: mortgage counselor on stopping -Acute on Chronic hypoxic respiratory failure: wean back down from 4L to 2L, now at 2 liters -DVT prophylaxis: [place] Dow as outpatient. new issue is Chest pains at rest relieved by ntg: get troponin, consult cardiology, stress in am, also ordered Echo. 04/04/17: Echo pending, [employer] cancelled stress test, I called Dr. Simms to discuss, await call back. Possible d/c today. History Interval history: Patient was seen and examined. Follow-up on current diagnosis/sz. Overnight he c/o substernal chest pain relieved by ntg and discharge was held, currently no chest pains. Imaging, nursing note, chart, labs and old chart reviewed. Discussed with patient. Hospitalist Physical - Physical exam Narrative exam: GEN: WDWN, NAD, AWAKE, ALERT, ORIENTATED x 3 HEENT: NCAT, EOMI, PERRL, OP Clear NECK: supple, no adenopathy, no thyromegaly, no JVD CVS/HEART: irreg irreg, NORMAL S1S2, NO JVD, pulses present bilaterally CHEST/LUNGS: CTA B, Symmetrical chest expansion, good air entry bilaterally GI/Abdomen: soft, NTND, good bowel sounds, no guarding or rebound /Bladder: no suprapubic tenderness, no CVA or paraspinal tenderness EXT/Skin: no c/c/e, no obvious rash MSK: FROM x 4, left extermities slightly weaker than right, gait is slow but steady Neuro: CN 2-12 grossly intact, no new focal deficits Psych: calm - Constitutional Vitals: Temp Pulse Resp BP Pulse Ox 98.6 F 61 20 115/56 98 04/04/17 08:05 04/04/17 08:05 04/04/17 08:05 04/04/17 08:05 04/04/17 08:05 General appearance: Absent: mild distress Results - Labs CBC & Chem 7: 03/31/17 11:43 03/31/17 11:43 Labs: Laboratory Last Values WBC 9.4 K/mm3 (4.5-11.0) 03/31/17 11:43 RBC 4.78 M/mm3 (3.65-5.03) 03/31/17 11:43 Hgb 16.0 gm/dl (11.8-15.2) H 03/31/17 11:43 Hct 48.5 % (35.5-45.6) H 03/31/17 11:43 MCV 102 fl (84-94) H 03/31/17 11:43 MCH 34 pg (28-32) H 03/31/17 11:43 MCHC 33 % (32-34) 03/31/17 11:43 RDW 14.4 % (13.2-15.2) 03/31/17 11:43 Plt Count 177 K/mm3 (140-440) 03/31/17 11:43 Lymph % (Auto) 9.3 % (13.4-35.0) L 03/31/17 11:43 [place] % (Auto) 6.9 % (0.0-7.3) 03/31/17 11:43 Eos % (Auto) 0.3 % (0.0-4.3) 03/31/17 11:43 Baso % (Auto) 0.5 % (0.0-1.8) 03/31/17 11:43 Lymph # 0.9 K/mm3 (1.2-5.4) L 03/31/17 11:43 [place] # 0.7 K/mm3 (0.0-0.8) 03/31/17 11:43 Eos # 0.0 K/mm3 (0.0-0.4) 03/31/17 11:43 Baso # 0.1 K/mm3 (0.0-0.1) 03/31/17 11:43 Seg Neutrophils % 83.0 % (40.0-70.0) H 03/31/17 11:43 Seg Neutrophils # 7.8 K/mm3 (1.8-7.7) H 03/31/17 11:43 PT 16.3 Sec. (12.2-14.9) H 03/31/17 11:43 INR 1.24 (0.87-1.13) H 03/31/17 11:43 APTT 33.5 Sec. (24.2-36.6) 03/31/17 11:43 Thrombin Time 17.2 Sec. (15.1-19.6) 03/31/17 11:43 Sodium 139 mmol/L (137-145) 03/31/17 11:43 Potassium 3.8 mmol/L (3.6-5.0) 03/31/17 11:43 Chloride 100.1 mmol/L (98-107) 03/31/17 11:43 Carbon Dioxide 20 mmol/L (22-30) L 03/31/17 11:43 Anion Gap 23 mmol/L 03/31/17 11:43 BUN 13 mg/dL (9-20) 03/31/17 11:43 Creatinine 1.0 mg/dL (0.8-1.5) 03/31/17 11:43 Estimated GFR > 60 ml/min 03/31/17 11:43 BUN/Creatinine Ratio 13 % 03/31/17 11:43 Glucose 133 mg/dL (75-100) H 03/31/17 11:43 POC Glucose 136 (70-105) H 03/31/17 11:50 Calcium 8.5 mg/dL (8.4-10.2) 03/31/17 11:43 Magnesium 2.00 mg/dL (1.7-2.3) 03/31/17 11:43 Total Bilirubin 0.50 mg/dL (0.1-1.2) 03/31/17 11:43 Direct Bilirubin < 0.2 mg/dL (0-0.2) 03/31/17 11:43 Indirect Bilirubin 0.3 mg/dL 03/31/17 11:43 AST 27 units/L (5-40) 03/31/17 11:43 ALT 15 units/L (7-56) 03/31/17 11:43 Alkaline Phosphatase 74 units/L (35-129) 03/31/17 11:43 Ammonia 82.0 umol/L (25-60) H 03/31/17 11:43 Total Creatine Kinase 117 units/L (55-170) 03/31/17 11:43 CK-MB (CK-2) 3.3 ng/mL (0.0-4.0) 03/31/17 11:43 CK-MB (CK-2) Rel Index 2.8 (0-4) 03/31/17 11:43 Troponin T 0.025 ng/mL (0.00-0.029) 04/04/17 00:10 NT-Pro-B Natriuret Pep 555.8 pg/mL (0-900) 03/31/17 11:43 Total Protein 6.7 g/dL (6.3-8.2) 03/31/17 11:43 Albumin 3.9 g/dL (3.9-5) 03/31/17 11:43 Albumin/Globulin Ratio 1.4 % 03/31/17 11:43 Urine Color Yellow (Yellow) 03/31/17 12:04 Urine Turbidity Clear (Clear) 03/31/17 12:04 Urine pH 5.0 (5.0-7.0) 03/31/17 12:04 Ur Specific [place] 1.020 (1.003-1.030) 03/31/17 12:04 Urine Protein 30 mg/dl mg/dL (Negative) 03/31/17 12:04 Urine Glucose (UA) Neg mg/dL (Negative) 03/31/17 12:04 Urine Ketones Tr mg/dL (Negative) 03/31/17 12:04 Urine Blood Sm (Negative) 03/31/17 12:04 Urine Nitrite Neg (Negative) 03/31/17 12:04 Urine Bilirubin Neg (Negative) 03/31/17 12:04 Urine Urobilinogen < 2.0 mg/dL (<2.0) 03/31/17 12:04 Ur Leukocyte Esterase Tr (Negative) 03/31/17 12:04 Urine WBC (Auto) 6.0 /HPF (0.0-6.0) 03/31/17 12:04 Urine RBC (Auto) 7.0 /HPF (0.0-6.0) 03/31/17 12:04 U Epithel Cells (Auto) 1.0 /HPF (0-13.0) 03/31/17 12:04 Urine Bacteria (Auto) 1+ /HPF (Negative) 03/31/17 12:04 Urine Opiates Screen Presumptive negative 03/31/17 12:04 Urine Methadone Screen Presumptive negative 03/31/17 12:04 Ur Barbiturates Screen Presumptive negative 03/31/17 12:04 Ur Phencyclidine Scrn Presumptive negative 03/31/17 12:04 Ur Amphetamines Screen Presumptive negative 03/31/17 12:04 U Benzodiazepines Scrn Presumptive negative 03/31/17 12:04 Urine Cocaine Screen Presumptive negative 03/31/17 12:04 U Marijuana (THC) Screen Presumptive negative 03/31/17 12:04 Drugs of Abuse Note Disclamer 03/31/17 12:04 Plasma/Serum Alcohol < 0.01 gm% (0-0.07) 03/31/17 11:43 Blood Type B POSITIVE 03/31/17 11:43 Antibody Screen Negative 03/31/17 11:43
--- NOTE | 2017-04-04 13:35 | Consultation ---
History of Present Illness Consult date: 04/04/17 Consult reason: chest pain, congestive heart failure History of present illness: The patient is a 66-year-old man with a long history of urinary artery disease and ischemic cardiomyopathy. He has undergone previous coronary bypass surgery. 2 years ago, a cardiac catheterization revealed patent saphenous vein grafts 2 to the circumflex and right coronary systems. The left internal mammary artery graft to the LAD was atrophic, but the target vessel LAD remained patent with no significant lesions. Based on this, was recommended for medical therapy and aggressive risk factor modification for small vessel disease. The left ventricle ejection fraction is 10-15%. He has an internal cardiac defibrillator in situ and is on Eliquis for paroxysmal atrial fibrillation. He follows up on a regular basis with his primary laborer yard Dr. Olvin Sims. The patient presented to the hospital 3 days ago, with symptoms of a prodrome of an impending seizure. He has a history of reflux seizure activity and was able to correlate this with his previous attacks. There was no chest pain, no unusual shortness of breath, no lower extremity edema. No palpitations. He denies defibrillator discharge. Cardiology consultation is requested for further evaluation of the report of brief chest pain. The patient's EKG is sinus rhythm, nonspecific lateral ST and T-wave abnormalities. His chest x-ray on presentation 3 days ago was consistent with his interstitial edema, mild decompensated heart failure. During his course in the hospital, there has been no significant dyspnea orthopnea despite the absence of consistent diuretic therapy. Past History Past Medical History: acute HI, CAD, GERD, heart failure, hypertension, migraines, seizures Past Surgical History: CABG, bowel surgery Social history: single Family history: hypertension Medications and Allergies Allergies Allergy/AdvReac Type Severity Reaction Status Date / Time No Known Allergies Allergy Verified 11/21/16 13:29 Home Medications Medication Instructions Recorded Confirmed Last Taken Type Atorvastatin [Lipitor] 20 mg PO DAILY 06/09/14 03/31/17 05/05/15 21:00 History Metoprolol [Lopressor TAB] 25 mg PO BID 06/09/14 03/31/17 05/09/15 21:00 History Nitroglycerin [Nitrostat] 0.4 mg SL Q5M PRN #30 tab 06/29/14 03/31/17 05/09/15 23:30 Rx Apixaban [Eliquis] 5 mg PO BID #60 tablet 05/10/15 03/31/17 03/31/17 Rx levETIRAcetam [Keppra TAB] 2,000 mg PO BID #60 tablet 05/10/15 03/31/17 Rx Amiodarone [Cordarone 200 MG TAB] 200 mg PO QDAY 03/31/17 03/31/17 Unknown History ISOSORBIDE MONOnitrate [Imdur ER] 30 mg PO QDAY 03/31/17 03/31/17 03/31/17 History Lisinopril [Zestril TAB] 2.5 mg PO QDAY 03/31/17 03/31/17 03/31/17 History Thiamine [Vitamin B-1] 100 mg PO QDAY #30 tablet 04/02/17 Unknown Rx Active Meds: Active Medications Acetaminophen (Tylenol) 650 mg PO Q4H PRN PRN Reason: Pain MILD(1-3)/Fever >100.5/WARE Last Admin: 03/31/17 18:07 Dose: 650 mg Amiodarone HCl (Cordarone) 200 mg PO QDAY [facility] Last Admin: 04/03/17 09:45 Dose: 200 mg Apixaban (Eliquis) 5 mg PO BID [facility] PRN Reason: Protocol Last Admin: 04/03/17 22:40 Dose: 5 mg Atorvastatin Calcium (Lipitor) 20 mg PO QHS [facility] Last Admin: 04/03/17 22:40 Dose: 20 mg Bisacodyl (Dulcolax) 10 mg [place] QDAY PRN PRN Reason: Constipation unrelieved by MOM Folic Acid (Folvite) 1 mg PO QDAY [facility] Last Admin: 04/03/17 09:44 Dose: 1 mg Isosorbide Mononitrate (Imdur) 30 mg PO QDAY [facility] Last Admin: 04/03/17 09:44 Dose: 30 mg Levetiracetam (Keppra) 1,000 mg PO BID [facility] Last Admin: 04/03/17 22:39 Dose: 1,000 mg Lisinopril (Zestril) 2.5 mg PO QDAY [facility] Last Admin: 04/03/17 09:44 Dose: 2.5 mg Lorazepam (Ativan) 2 mg IV Q1HR PRN PRN Reason: CIWA-Ar 8-15 Magnesium Hydroxide (Milk Of Magnesia) 30 ml PO Q4H PRN PRN Reason: Constipation Metoprolol Tartrate (Lopressor) 25 mg PO BID [facility] Last Admin: 04/03/17 22:40 Dose: 25 mg Multivitamins (Theragran Tab) 1 each PO QDAY [facility] Last Admin: 04/03/17 09:45 Dose: 1 each Nitroglycerin (Nitrostat) 0.4 mg SL Q5M PRN PRN Reason: Chest Pain Last Admin: 04/02/17 15:37 Dose: 0.4 mg Ondansetron HCl (Zofran) 4 mg IV Q8H PRN PRN Reason: N/V unrelieved by Reglan Thiamine HCl (Vitamin B-1) 100 mg PO QDAY [facility] Last Admin: 04/03/17 09:44 Dose: 100 mg Review of Systems Cardiovascular: chest pain, shortness of breath, no orthopnea, no palpitations, no rapid/irregular heart beat, no edema, no syncope, no lightheadedness Physical Examination Vital Signs Pulse Resp BP Pulse Ox 121 H 22 195/115 93 03/31/17 10:10 03/31/17 10:10 03/31/17 10:10 03/31/17 10:10 General appearance: no acute distress HEENT: Positive: PERRL Neck: Positive: neck supple Cardiac: Positive: Reg Rate and Rhythm Lungs: Positive: Decreased Breath Sounds Neuro: Positive: Grossly Intact Abdomen: Positive: Soft Male genitourinary: Positive: deferred Skin: Positive: Clear Extremities: Absent: edema Results 03/31/17 11:43 03/31/17 11:43 EKG interpretations - Telemetry EKG Rhythm: Sinus Rhythm Assessment and Plan - Patient Problems (1) CHF (congestive heart failure) Current Visit: Yes Status: Acute Qualifiers: Congestive heart failure type: systolic Congestive heart failure chronicity : chronic Qualified Code(s): I50.22 - Chronic systolic (congestive) heart failure Plan to address problem: With regards to the decompensated heart failure, we will add diuretic therapy to the patient's regimen, continue afterload reducing agents, beta blockers as tolerated. (2) Paroxysmal atrial fibrillation Current Visit: Yes Status: Acute Plan to address problem: Continue oral anticoagulation therapy for paroxysmal A. fib.
[2017-04-04] MEDS ORDERED: K-DUR PO SCH (14:00)
[2017-04-04] MEDS: ZESTRIL PO SCH (14:57)
[2017-04-04] MEDS: CORDARONE PO SCH (14:57)
[2017-04-04] MEDS: ELIQUIS PO SCH (14:57)
[2017-04-04] MEDS: LOPRESSOR PO SCH (14:58)
[2017-04-04] MEDS: IMDUR PO SCH (14:58)
[2017-04-04] MEDS: KEPPRA PO SCH (14:59)
[2017-04-04] MEDS ORDERED: LASIX IV ONE (15:00)
[2017-04-04 16:35] VITALS: BP 129/77
[2017-04-05] MEDS ORDERED: LASIX PO SCH (10:00)
== END 2017-04-04 16:45 | disposition home or self-care (01) | DRG 100 ==
LOC: ED 10:07 → 3A 14:04
PROVIDERS: ADMIT Internal Medicine; ATTEND Internal Medicine
PROC: 3E0234Z Introduction of Serum, Toxoid and Vaccine into Muscle, Percutaneous Approach (ICD-10-PCS; principal; 2017-04-01)
DX: G40.901 Epilepsy, unspecified, not intractable, with status epilepticus (principal); J96.21 Acute and chronic respiratory failure with hypoxia; I11.0 Hypertensive heart disease with heart failure; I50.22 Chronic systolic (congestive) heart failure; G43.909 Migraine, unspecified, not intractable, without status migrainosus; F10.231 Alcohol dependence with withdrawal delirium; K21.9 Gastro-esophageal reflux disease without esophagitis; F17.210 Nicotine dependence, cigarettes, uncomplicated; I48.92 Unspecified atrial flutter; Y90.9 Presence of alcohol in blood, level not specified; I48.2 Chronic atrial fibrillation; I25.2 Old myocardial infarction; Z82.49 Family history of ischemic heart disease and other diseases of the circulatory system; Z79.899 Other long term (current) drug therapy; Z95.1 Presence of aortocoronary bypass graft; I69.354 Hemiplegia and hemiparesis following cerebral infarction affecting left non-dominant side; Z95.0 Presence of cardiac pacemaker; Z71.6 Tobacco abuse counseling; Z23 Encounter for immunization
CPT/HCPCS: 36415; 70450; 71010; 80048; 80074; 80307; 80320; 81001; 82140; 82550; 82553; 82962; 83735; 83880; 84484; 85025; 85610; 85670; 85730; 86850; 86900; 86901; 90686; 93005; 93010; 93306; 94760; 96365; 96375; A9270-GY; G0480; J1940; J1953; J2060; J3411; J7030

== ENCOUNTER 2017-05-24 11:05 | Outpatient (CLI) | payer MEDICAID ==
[2017-05-24 11:32] LABS: Hematocrit 44.5 % (35.5-45.6); Hemoglobin 15.1 gm/dl (11.8-15.2); Mean Corpuscular HGB Conc 34 % (32-34); Mean Corpuscular Hemoglobin 35 pg (28-32); Mean Corpuscular Volume 102 fl (84-94); Platelet Count 160 K/mm3 (140-440); Red Blood Count 4.38 M/mm3 (3.65-5.03); Red Cell Distribution Width 14.4 % (13.2-15.2)
[2017-05-24 11:59] LABS: Alanine Aminotransferase 27 units/L (7-56); Albumin 3.8 g/dL (3.9-5); BUN/Creatinine Ratio 13; Blood Urea Nitrogen 13 mg/dL (9-20); Chol/HDL Ratio 2.49 %; HDL Cholesterol 59 mg/dL (40-59); Hemolysis Index 10; LDL Cholesterol,Direct 36 mg/dL (50-130)
== END 2017-05-24 11:06 | disposition home or self-care (01) ==
LOC: LAB 11:05
PROVIDERS: ATTEND Internal Medicine
DX: R06.02 Shortness of breath (principal); I11.0 Hypertensive heart disease with heart failure; I50.9 Heart failure, unspecified; I25.10 Atherosclerotic heart disease of native coronary artery without angina pectoris; I48.91 Unspecified atrial fibrillation
CPT/HCPCS: 36415; 80053; 80061; 82785; 84436; 84443; 85027

== ENCOUNTER 2017-09-04 13:21 | Emergency (ER) | payer MEDICAID ==
--- NOTE | 2017-09-04 16:24 | Emergency Department Report ---
ED Seizure HPI - General Chief Complaint: Seizure Stated Complaint: POSSIBLE SEIZURE Time Seen by Provider: 09/04/17 15:40 Source: patient, EMS Mode of arrival: Stretcher Limitations: No Limitations - History of Present Illness Initial Comments: Brought in by EMS for a seizure today, patient is now at baseline, has a history of seizures, may not always being compliant with his medications. Did take his Keppra however today. Complaint: seizure -: Sudden Witnessed:: Yes Seizure History: known seizure disorder Place: home Possible Precipitating Event: none Associated Symptoms: denies other symptoms Treatments Prior to Arrival: none - Related Data Home Medications Medication Instructions Recorded Confirmed Last Taken Atorvastatin [Lipitor] 20 mg PO DAILY 06/09/14 03/31/17 05/05/15 21:00 Metoprolol [Lopressor TAB] 25 mg PO BID 06/09/14 03/31/17 05/09/15 21:00 Amiodarone [Cordarone 200 MG TAB] 200 mg PO QDAY 03/31/17 03/31/17 Unknown ISOSORBIDE MONOnitrate [Imdur ER] 30 mg PO QDAY 03/31/17 03/31/17 03/31/17 Lisinopril [Zestril TAB] 2.5 mg PO QDAY 03/31/17 03/31/17 03/31/17 Previous Rx's Medication Instructions Recorded Last Taken Type Nitroglycerin [Nitrostat] 0.4 mg SL Q5M PRN #30 tab 06/29/14 05/09/15 23:30 Rx Apixaban [Eliquis] 5 mg PO BID #60 tablet 05/10/15 03/31/17 Rx levETIRAcetam [Keppra TAB] 2,000 mg PO BID #60 tablet 05/10/15 03/31/17 Rx Thiamine [Vitamin B-1] 100 mg PO QDAY #30 tablet 04/02/17 Unknown Rx Allergies Allergy/AdvReac Type Severity Reaction Status Date / Time No Known Allergies Allergy Verified 09/04/17 14:17 ED Review of Systems ROS: Stated complaint: POSSIBLE SEIZURE Other details as noted in HPI Comment: All other systems reviewed and negative Constitutional: see HPI Eyes: as per HPI ENT: as per HPI Respiratory: see HPI Cardiovascular: as per HPI Endocrine: see HPI Gastrointestinal: as per HPI Genitourinary: as per HPI Musculoskeletal: as per HPI Skin: as per HPI Neurological: as per HPI Psychiatric: as per HPI Hematological/Lymphatic: as per HPI 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) Hx Heart Attack/AMI: Yes Hx Congestive Heart Failure: Yes Hx Diabetes: No Hx GERD: Yes Hx Liver Disease: Yes Hx Headaches / Migraines: Yes Hx Seizures: Yes Hx Asthma: No Hx COPD: No Hx HIV: (by the feel better) Additional medical history: defibrillator; left sided weakness - Surgical History Past Surgical History?: Yes Hx Open Heart Surgery: Yes Hx Pacemaker: Yes (LEFT ) Hx Internal Defibrillator: Yes (arrhythmia-atrial tachycardia) Additional Surgical History: "heart surgery", exploratory laparotomy secondary to "busted intestines" - Social History Smoking Status: Current Every Day Smoker Substance Use Type: Alcohol - Medications Home Medications: Home Medications Medication Instructions Recorded Confirmed Last Taken Type Atorvastatin [Lipitor] 20 mg PO DAILY 06/09/14 03/31/17 05/05/15 21:00 History Metoprolol [Lopressor TAB] 25 mg PO BID 06/09/14 03/31/17 05/09/15 21:00 History Nitroglycerin [Nitrostat] 0.4 mg SL Q5M PRN #30 tab 06/29/14 03/31/17 05/09/15 23:30 Rx Apixaban [Eliquis] 5 mg PO BID #60 tablet 05/10/15 03/31/17 03/31/17 Rx levETIRAcetam [Keppra TAB] 2,000 mg PO BID #60 tablet 05/10/15 03/31/17 Rx Amiodarone [Cordarone 200 MG TAB] 200 mg PO QDAY 03/31/17 03/31/17 Unknown History ISOSORBIDE MONOnitrate [Imdur ER] 30 mg PO QDAY 03/31/17 03/31/17 03/31/17 History Lisinopril [Zestril TAB] 2.5 mg PO QDAY 03/31/17 03/31/17 03/31/17 History Thiamine [Vitamin B-1] 100 mg PO QDAY #30 tablet 04/02/17 Unknown Rx ED Physical Exam - General Limitations: No Limitations General appearance: alert, in no apparent distress - Head Head exam: Present: atraumatic - Eye Eye exam: Present: normal appearance, PERRL, EOMI - ENT ENT exam: Present: normal exam - Neck Neck exam: Present: normal inspection - Respiratory Respiratory exam: Present: normal lung sounds bilaterally. Absent: respiratory distress, wheezes - Cardiovascular Cardiovascular Exam: Present: regular rate, normal rhythm, normal heart sounds - GI/Abdominal GI/Abdominal exam: Present: soft - Extremities Exam Extremities exam: Present: normal inspection, full ROM - Back Exam Back exam: Present: normal inspection, full ROM - Neurological Exam Neurological exam: Present: alert, oriented X3, CN II-XII intact - Psychiatric Psychiatric exam: Present: normal affect, normal mood - Skin Skin exam: Present: warm, dry, intact, normal color ED Course Vital Signs 09/04/17 09/04/17 09/04/17 14:14 14:17 15:30 Temperature 98.2 F Pulse Rate 60 60 Respiratory 16 16 16 Rate Blood Pressure 94/49 Blood Pressure 147/68 [Right] O2 Sat by Pulse 97 97 98 Oximetry 09/04/17 18:09 Temperature Pulse Rate 61 Respiratory 16 Rate Blood Pressure Blood Pressure 117/57 [Right] O2 Sat by Pulse 98 Oximetry - Reevaluation(s) Reevaluation #1: 09/04/17 18:47 Laboratory findings are within normal limits essentially. We did give him some Keppra in the emergency room. The patient is at baseline at this time. The patient has a known history of seizure disorder. I'll go ahead and discharge the patient. He is to follow-up with his primary care doctor. He is also instructed to take his medications as directed. She is understanding. ED Medical Decision Making - Lab Data Result diagrams: 09/04/17 16:31 09/04/17 16:31 Critical care attestation.: If time is entered above; I have spent that time in minutes in the direct care of this critically ill patient, excluding procedure time. ED Disposition Clinical Impression: Seizure disorder Disposition: DC-01 TO HOME OR SELFCARE Is pt being admited?: No Does the pt Need Aspirin: No Condition: Stable Instructions: Recurrent Seizures Adult (ED) Additional Instructions: Rest, fluids, reduce alcohol consumption, return as needed, follow up with your primary care doctor, take medications as directed. Referrals: PRIMARY CARE, [Primary Care Provider] - 3-5 Days
[2017-09-04 16:44] LABS: Basophils % (Auto) 0.7 % (0.0-1.8); Eosinophils % (Auto) 0.6 % (0.0-4.3); Hematocrit 43.5 % (35.5-45.6); Hemoglobin 14.5 gm/dl (11.8-15.2); Lymphocytes # (Auto) 1.1 K/mm3 (1.2-5.4); Lymphocytes % (Auto) 20.9 % (13.4-35.0); Mean Corpuscular HGB Conc 33 % (32-34); Mean Corpuscular Hemoglobin 35 pg (28-32); Mean Corpuscular Volume 105 fl (84-94); Monocytes # (Auto) 0.8 K/mm3 (0.0-0.8); Monocytes % (Auto) 15.9 % (0.0-7.3); Platelet Count 162 K/mm3 (140-440); Red Blood Count 4.16 M/mm3 (3.65-5.03); Red Cell Distribution Width 14.8 % (13.2-15.2)
[2017-09-04 17:08] LABS: Alanine Aminotransferase 13 units/L (7-56); Albumin 3.5 g/dL (3.9-5); BUN/Creatinine Ratio 13; Blood Urea Nitrogen 13 mg/dL (9-20); Calcium 8.8 mg/dL (8.4-10.2); Hemolysis Index 10
[2017-09-04] MEDS ORDERED: KEPPRA 500 MG/NS 0.82% 100 ML 500 MG/100 ML BAG IV ONE (17:23)
[2017-09-04 17:57] LABS: Bilirubin,Urine NEG (Negative); Blood,Urine SM (Negative); Color,Urine Yellow (Yellow); Mucus,Urine FEW /HPF; Protein,Urine <15 mg/dL mg/dL (Negative)
[2017-09-04 18:07] LABS: Amphetamine Screen,Urine PRESUMPTIVE NEGATIVE; Benzodiazepines Screen,Urine PRESUMPTIVE NEGATIVE; Cannabinoid Screen,Urine PRESUMPTIVE NEGATIVE; Cocaine Screen,Urine PRESUMPTIVE NEGATIVE; Methadone Screen,Urine PRESUMPTIVE NEGATIVE; Opiate Screen,Urine PRESUMPTIVE NEGATIVE
[2017-09-04 18:11] VITALS: BP 117/57
== END 2017-09-04 19:04 | disposition home or self-care (01) ==
LOC: ED 13:21
DX: G40.909 Epilepsy, unspecified, not intractable, without status epilepticus (principal); K21.9 Gastro-esophageal reflux disease without esophagitis; G43.909 Migraine, unspecified, not intractable, without status migrainosus; F17.200 Nicotine dependence, unspecified, uncomplicated; I11.0 Hypertensive heart disease with heart failure; I50.9 Heart failure, unspecified; Z95.0 Presence of cardiac pacemaker
CPT/HCPCS: 36415; 80053; 80307; 81001; 85025; 96365; 96366; 99284; G0480; J1953; 80320

== ENCOUNTER 2017-10-08 21:10 | Emergency (ER) | payer MEDICAID ==
[2017-10-08 23:02] LABS: Basophils # (Auto) 0.1 K/mm3 (0.0-0.1); Basophils % (Auto) 0.7 % (0.0-1.8); Eosinophils # (Auto) 0.1 K/mm3 (0.0-0.4); Eosinophils % (Auto) 1.2 % (0.0-4.3); Hematocrit 37.3 % (35.5-45.6); Hemoglobin 12.4 gm/dl (11.8-15.2); Lymphocytes % (Auto) 12.3 % (13.4-35.0); Mean Corpuscular HGB Conc 33 % (32-34); Mean Corpuscular Hemoglobin 34 pg (28-32); Mean Corpuscular Volume 102 fl (84-94); Monocytes # (Auto) 0.9 K/mm3 (0.0-0.8); Monocytes % (Auto) 11.9 % (0.0-7.3); Platelet Count 178 K/mm3 (140-440); Red Blood Count 3.66 M/mm3 (3.65-5.03)
[2017-10-08] MEDS ORDERED: PROVENTIL IH ONE (23:56)
--- NOTE | 2017-10-09 00:03 | Emergency Department Report ---
HPI - General Chief Complaint: Weakness Time Seen by Provider: 10/08/17 21:44 - HPI HPI: Patient is a 66-year-old male with a history of CHF, and whom who presents for evaluation of dyspnea and generalized weakness. The patient states that since 10 AM this morning, 2 hours prior to my evaluation, he has experienced constant moderate in severity dyspnea, exacerbated with exertion, improved at rest. Approximately 6 hours [employer], he developed generalized weakness with exertion, relieved at rest. The patient denies fever, head injury, headache, neck pain, neck stiffness, chest pain, hemoptysis, syncope, unilateral leg swelling, abdominal pain, vision or hearing changes, smell or taste changes, paresthesias , facial drooping, slurred speech, seizure-like activity, urine or bowel incontinence or retention, or other focal neurological deficit. 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) Hx Heart Attack/AMI: Yes Hx Congestive Heart Failure: Yes Hx Diabetes: No Hx GERD: Yes Hx Liver Disease: Yes Hx Headaches / Migraines: Yes Hx Seizures: Yes Hx Asthma: No Hx COPD: No Hx HIV: (by the feel better) Additional medical history: defibrillator; left sided weakness - Surgical History Hx Open Heart Surgery: Yes Hx Pacemaker: Yes (LEFT ) Hx Internal Defibrillator: Yes (arrhythmia-atrial tachycardia) Additional Surgical History: "heart surgery", exploratory laparotomy secondary to "busted intestines" - Social History Smoking Status: Former Smoker Substance Use Type: None - Medications Home Medications: Home Medications Medication Instructions Recorded Confirmed Last Taken Type Metoprolol [Lopressor TAB] 25 mg PO BID 06/09/14 09/13/17 05/09/15 21:00 History Apixaban [Eliquis] 5 mg PO BID #60 tablet 05/10/15 09/13/17 03/31/17 Rx levETIRAcetam [Keppra TAB] 2,000 mg PO BID #60 tablet 05/10/15 09/13/17 Rx Amiodarone [Cordarone 200 MG TAB] 200 mg PO QDAY 03/31/17 09/13/17 Unknown History ISOSORBIDE MONOnitrate [Imdur ER] 30 mg PO QDAY 03/31/17 09/13/17 03/31/17 History Lisinopril [Zestril TAB] 2.5 mg PO QDAY 03/31/17 09/13/17 03/31/17 History Aspirin [Lo-Dose Aspirin EC] 81 mg PO DAILY 09/13/17 09/13/17 Unknown History OXcarbazepine [Trileptal] 1,200 mg PO BID 09/13/17 09/13/17 Unknown History Atorvastatin [Lipitor] 40 mg PO DAILY #30 tablet 09/19/17 Unknown Rx ED Review of Systems ROS: Stated complaint: WAEKNESS Other details as noted in HPI Constitutional: reports generalized weakness denies: fever ENT: denies: throat or neck pain Respiratory: denies: cough reports shortness of breath Cardiovascular: denies: chest pain Endocrine: denies unexplained weight loss or gain Gastrointestinal: denies: abdominal pain, nausea Genitourinary: denies: dysuria Musculoskeletal: denies: leg swelling Skin: denies: rash Neurological: denies: headache Hematological/Lymphatic: denies: easy bleeding or easy bruising Psych: denies sadness or hopelessness Physical Exam - Physical Exam Vital Signs: Vital Signs 10/08/17 21:30 Temperature 97.8 F Pulse Rate 68 Respiratory 17 Rate Blood Pressure 160/72 O2 Sat by Pulse 97 Oximetry Physical Exam: General: well-nourished, well-developed, no acute distress, patient morbidly obese Head: Normocephalic, atraumatic Eyes: normal sclera ENT: Mucous membranes are pale and dry Neck: No neck stiffness, no cervical adenopathy Respiratory: Mildly diminished breath sounds and wheezing present to bilateral apical lung arriaza, no costal retractions, nor sore distress Cardio: S1 and S2 present, no murmurs, rubs, gallops, capillary refill is delayed Abdomen: Normoactive bowel sounds, soft abdomen, no rigidity, no guarding or rebound tenderness Chest WALL/Back: No tenderness to palpation of the chest wall, no CVA tenderness with percussion Musc: No pitting edema Skin: No rash Neuro: alert oriented x4, normal cognition, speech normal, PERRL, EOM intact, no facial drooping, no uvula or tongue deviation on protrusion, no deficit with rotation of neck or shoulder shrug, no obvious gross motor deficit in the upper or lower extremities with flexion or extension at the shoulder, elbow, wrist, hip, knee, or ankle bilaterally, no obvious gross sensation deficit to crude touch or 2 pt discrimination, 2+ symmetric reflexes on DTR testing, no coordination deficit with [id number] or fzqz-wp-[id number] testing, Babinski downgoing, romberg negative, patient able to to ambulate without abnormal gait Psych: Normal affect ED Course Vital Signs 10/08/17 21:30 Temperature 97.8 F Pulse Rate 68 Respiratory 17 Rate Blood Pressure 160/72 O2 Sat by Pulse 97 Oximetry ED Medical Decision Making - Lab Data Result diagrams: 10/08/17 22:43 10/08/17 22:43 - Medical Decision Making The patient was seen and examined by myself. The patient is placed on a cardiac surgeon and continuous pulse ox. On initial evaluation, the patient was found to be in no distress. Evaluation orders were placed. Chest x-ray exhibits cardiomegaly, and otherwise is negative for focal consolidation, pleural effusions, significant pulmonary congestion, pneumothorax, or other acute cardio pulmonary disease process. Lab results revealed elevated BNP, consistent with CHF, and otherwise labs are grossly unrevealing. The patient was reevaluated and reported that their symptoms were markedly improved. On reexamination the patient is found to have normal respiratory rate and O2 sat on pulse oximetry, with no costal retractions or diminishment of breath sounds on auscultation, and he ramains without any neurologic deficits on examination. The patient is stable for discharge with outpatient follow-up. The patient is given follow-up and return instructions. The patient expressed understanding and agreed with the plan. The patient is discharged in stable condition. Critical care attestation.: If time is entered above; I have spent that time in minutes in the direct care of this critically ill patient, excluding procedure time. ED Disposition Clinical Impression: Chronic CHF (congestive heart failure), Generalized weakness Disposition: -01 TO HOME OR SELFCARE Is pt being admited?: No Does the pt Need Aspirin: No Condition: Stable Instructions: Heart Failure (ED) Referrals: PRIMARY CARE, [Primary Care Provider] - 3-5 Days Time of Disposition: 00:08
[2017-10-09 00:11] LABS: BUN/Creatinine Ratio 10; Blood Urea Nitrogen 11 mg/dL (9-20); Calcium 8.6 mg/dL (8.4-10.2); Hemolysis Index 2
--- NOTE | 2017-10-09 00:32 | XRay Report ---
FINAL REPORT PROCEDURE: XR CHEST 1V AP TECHNIQUE: Chest radiograph anteroposterior view. CPT 31422 HISTORY: chest pain COMPARISON: No prior studies are available for comparison. FINDINGS: Heart: The heart size is enlarged. Multiple sternal wires are present. There is a cardiac pacemaker with the battery left chest wall. Mediastinum/Vessels: Normal. Lungs/Pleural space: Normal. Bony thorax: No acute osseous abnormality. Life support devices: None. IMPRESSION: No acute cardiopulmonary abnormality.
[2017-10-09 02:02] VITALS: BP 150/79
== END 2017-10-09 02:45 | disposition home or self-care (01) ==
LOC: ED 21:10
DX: I50.9 Heart failure, unspecified (principal); R53.1 Weakness; I10 Essential (primary) hypertension; K21.9 Gastro-esophageal reflux disease without esophagitis; G43.909 Migraine, unspecified, not intractable, without status migrainosus; Z87.891 Personal history of nicotine dependence; Z86.73 Personal history of transient ischemic attack (TIA), and cerebral infarction without residual deficits; Z79.82 Long term (current) use of aspirin
CPT/HCPCS: 36415; 71045; 80048; 83880; 85025; 93005; 93010; 94640

== ENCOUNTER 2017-11-08 03:18 | Emergency (ER) | payer MEDICAID ==
[2017-11-08 04:10] VITALS: BP 144/73
--- NOTE | 2017-11-08 04:37 | XRay Report ---
FINAL REPORT EXAM: XR CHEST ROUTINE 2V HISTORY: Shortness of breath TECHNIQUE: PA and lateral views of the chest were submitted and compared the study of 10/09/2017. FINDINGS: The heart is boog-ha-emmakudpmm enlarged. There are postsurgical changes from previous bypass surgery. The lungs are hyperinflated. The lungs are not congested. There are no localized infiltrates or effusions. There is a bipolar pacemaker overlying the left chest wall with leads in the right atrium and right ventricle. The skeletal structures reveal generalized osteoporosis. IMPRESSION: Status post CABG. Cardiomegaly. No acute infiltrates or congestion at this time. Hyperinflation noted.
[2017-11-08 04:54] LABS: Basophils % (Auto) 0.7 % (0.0-1.8); Eosinophils # (Auto) 0.4 K/mm3 (0.0-0.4); Eosinophils % (Auto) 7.9 % (0.0-4.3); Hematocrit 39.1 % (35.5-45.6); Hemoglobin 13.4 gm/dl (11.8-15.2); Lymphocytes # (Auto) 1.3 K/mm3 (1.2-5.4); Mean Corpuscular HGB Conc 34 % (32-34); Mean Corpuscular Hemoglobin 34 pg (28-32); Mean Corpuscular Volume 100 fl (84-94); Monocytes # (Auto) 0.6 K/mm3 (0.0-0.8); Monocytes % (Auto) 10.9 % (0.0-7.3); Platelet Count 181 K/mm3 (140-440); Red Blood Count 3.92 M/mm3 (3.65-5.03); Red Cell Distribution Width 14.9 % (13.2-15.2)
[2017-11-08 05:15] LABS: BUN/Creatinine Ratio 11; Blood Urea Nitrogen 11 mg/dL (9-20); Calcium 9.1 mg/dL (8.4-10.2); Hemolysis Index 2
[2017-11-08 05:56] LABS: Chol/HDL Ratio 3.26 %; HDL Cholesterol 46 mg/dL (40-59); LDL Cholesterol,Direct 98 mg/dL (50-130)
== END 2017-11-08 12:00 | disposition left against medical advice (07) ==
LOC: ED 03:18
DX: R06.00 Dyspnea, unspecified (principal); I50.9 Heart failure, unspecified; I25.2 Old myocardial infarction; I10 Essential (primary) hypertension; Z86.73 Personal history of transient ischemic attack (TIA), and cerebral infarction without residual deficits; Z95.0 Presence of cardiac pacemaker; Z53.21 Procedure and treatment not carried out due to patient leaving prior to being seen by health care provider
CPT/HCPCS: 36415; 71046; 80048; 80061; 83880; 84484; 85025; 93005; 93010

== ENCOUNTER 2018-05-17 02:27 | Inpatient (IN) | payer MEDICARE ==
[2018-05-17 03:00] LABS: Basophils # (Auto) 0.1 K/mm3 (0.0-0.1); Basophils % (Auto) 0.7 % (0.0-1.8); Eosinophils % (Auto) 0.6 % (0.0-4.3); Hematocrit 39.6 % (35.5-45.6); Hemoglobin 13.3 gm/dl (11.8-15.2); Lymphocytes # (Auto) 0.9 K/mm3 (1.2-5.4); Lymphocytes % (Auto) 12.1 % (13.4-35.0); Mean Corpuscular HGB Conc 34 % (32-34); Mean Corpuscular Volume 103 fl (84-94); Monocytes # (Auto) 0.6 K/mm3 (0.0-0.8); Monocytes % (Auto) 8.3 % (0.0-7.3); Platelet Count 197 K/mm3 (140-440); Red Blood Count 3.85 M/mm3 (3.65-5.03); Red Cell Distribution Width 15.4 % (13.2-15.2)
--- NOTE | 2018-05-17 03:04 | Emergency Department Report ---
ED General Adult HPI - General Chief complaint: Dyspnea/Respdistress Stated complaint: PHUONG Time Seen by Provider: 05/17/18 03:02 Source: patient, EMS Mode of arrival: Stretcher Limitations: No Limitations - History of Present Illness Initial comments: 67-year-old male with history of CHF, coronary disease, CVA presents with complaint of shortness of breath. Patient complains of chest pain as well. Patient states that he has been having shortness of breath worsening over the past day. They states he called EMS and upon EMS arrival patient was noted be hypoxic at 91% and received a DuoNeb treatment prior to arrival. Patient states he is compliant with his medical therapy as well. Patient denies any fever or any vomiting. Patient denies any diarrhea. Severity scale (0 -10): 0 - Related Data Home Medications Medication Instructions Recorded Confirmed Last Taken Metoprolol [Lopressor TAB] 25 mg PO BID 06/09/14 09/13/17 05/09/15 21:00 Amiodarone [Cordarone 200 MG TAB] 200 mg PO QDAY 03/31/17 09/13/17 Unknown ISOSORBIDE MONOnitrate [Imdur ER] 30 mg PO QDAY 03/31/17 09/13/17 03/31/17 Lisinopril [Zestril TAB] 2.5 mg PO QDAY 03/31/17 09/13/17 03/31/17 Aspirin [Lo-Dose Aspirin EC] 81 mg PO DAILY 09/13/17 09/13/17 Unknown OXcarbazepine [Trileptal] 1,200 mg PO BID 09/13/17 09/13/17 Unknown Previous Rx's Medication Instructions Recorded Last Taken Type Apixaban [Eliquis] 5 mg PO BID #60 tablet 05/10/15 03/31/17 Rx levETIRAcetam [Keppra TAB] 2,000 mg PO BID #60 tablet 05/10/15 03/31/17 Rx Atorvastatin [Lipitor] 40 mg PO DAILY #30 tablet 09/19/17 Unknown Rx Furosemide [Lasix] 20 mg PO QDAY #14 tablet 10/09/17 Unknown Rx Furosemide [Lasix] 20 mg PO QDAY #14 tablet 10/09/17 Unknown Rx Allergies Allergy/AdvReac Type Severity Reaction Status Date / Time No Known Allergies Allergy Verified 09/04/17 14:17 ED Review of Systems ROS: Stated complaint: PHUONG Other details as noted in HPI Constitutional: denies: chills, fever Eyes: denies: eye pain, eye discharge, vision change ENT: denies: ear pain, throat pain Respiratory: cough, SOB at rest. 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) Hx Heart Attack/AMI: Yes Hx Congestive Heart Failure: Yes Hx Diabetes: No Hx GERD: Yes Hx Liver Disease: Yes Hx Headaches / Migraines: Yes Hx Seizures: Yes Hx Asthma: No Hx COPD: No Hx HIV: (by the feel better) Additional medical history: defibrillator; left sided weakness - Surgical History Past Surgical History?: Yes Hx Open Heart Surgery: Yes Hx Pacemaker: Yes (LEFT ) Hx Internal Defibrillator: Yes (arrhythmia-atrial tachycardia) Additional Surgical History: "heart surgery", exploratory laparotomy secondary to "busted intestines" - Social History Smoking Status: Former Smoker Substance Use Type: None - Medications Home Medications: Home Medications Medication Instructions Recorded Confirmed Last Taken Type Metoprolol [Lopressor TAB] 25 mg PO BID 06/09/14 09/13/17 05/09/15 21:00 History Apixaban [Eliquis] 5 mg PO BID #60 tablet 05/10/15 09/13/17 03/31/17 Rx levETIRAcetam [Keppra TAB] 2,000 mg PO BID #60 tablet 05/10/15 09/13/17 03/31/17 Rx Amiodarone [Cordarone 200 MG TAB] 200 mg PO QDAY 03/31/17 09/13/17 Unknown History ISOSORBIDE MONOnitrate [Imdur ER] 30 mg PO QDAY 03/31/17 09/13/17 03/31/17 History Lisinopril [Zestril TAB] 2.5 mg PO QDAY 03/31/17 09/13/17 03/31/17 History Aspirin [Lo-Dose Aspirin EC] 81 mg PO DAILY 09/13/17 09/13/17 Unknown History OXcarbazepine [Trileptal] 1,200 mg PO BID 09/13/17 09/13/17 Unknown History Atorvastatin [Lipitor] 40 mg PO DAILY #30 tablet 09/19/17 Unknown Rx Furosemide [Lasix] 20 mg PO QDAY #14 tablet 10/09/17 Unknown Rx Furosemide [Lasix] 20 mg PO QDAY #14 tablet 10/09/17 Unknown Rx ED Physical Exam - General Limitations: No Limitations General appearance: alert, other (moderate respiratory distress; able to speak in sentences) - Head Head exam: Present: atraumatic, normocephalic - Eye Eye exam: Present: normal appearance - ENT ENT exam: Present: mucous membranes dry - Neck Neck exam: Present: normal inspection - Respiratory Respiratory exam: Present: wheezes, rales (bilaterally up to apices). Absent: respiratory distress - Cardiovascular Cardiovascular Exam: Present: regular rate, normal rhythm, other (scar indivicative of prior CABG). Absent: systolic murmur, diastolic murmur, rubs, gallop - GI/Abdominal GI/Abdominal exam: Present: soft, distended (mild), normal bowel sounds - Rectal Rectal exam: Present: deferred - Extremities Exam Extremities exam: Present: normal inspection - Back Exam Back exam: Present: normal inspection - Neurological Exam Neurological exam: Present: alert, oriented X3 - Psychiatric Psychiatric exam: Present: normal affect, normal mood - Skin Skin exam: Present: warm, dry, intact, normal color. Absent: rash ED Course Vital Signs 05/17/18 05/17/18 05/17/18 02:36 02:43 02:45 Temperature 98 F Pulse Rate 72 73 Pulse Rate [ Anterior Bilateral Throughout] Respiratory 24 26 H Rate Respiratory Rate [Anterior Bilateral Throughout] Blood Pressure 154/85 Blood Pressure 178/85 [Left] O2 Sat by Pulse 95 97 94 Oximetry 05/17/18 05/17/18 05/17/18 03:00 03:15 03:38 Temperature Pulse Rate 69 60 60 Pulse Rate [ Anterior Bilateral Throughout] Respiratory 20 17 15 Rate Respiratory Rate [Anterior Bilateral Throughout] Blood Pressure 154/85 140/71 178/85 Blood Pressure [Left] O2 Sat by Pulse 95 94 98 Oximetry 05/17/18 05/17/18 05/17/18 03:42 03:45 04:00 Temperature Pulse Rate 66 62 68 Pulse Rate [ Anterior Bilateral Throughout] Respiratory 20 19 18 Rate Respiratory Rate [Anterior Bilateral Throughout] Blood Pressure 148/75 152/81 Blood Pressure 146/88 [Left] O2 Sat by Pulse 99 96 98 Oximetry 05/17/18 05/17/18 05/17/18 04:15 04:30 04:45 Temperature Pulse Rate 77 84 86 Pulse Rate [ Anterior Bilateral Throughout] Respiratory 24 19 26 H Rate Respiratory Rate [Anterior Bilateral Throughout] Blood Pressure 160/80 173/98 158/94 Blood Pressure [Left] O2 Sat by Pulse 96 96 94 Oximetry 05/17/18 05/17/18 05/17/18 05:00 05:15 05:30 Temperature Pulse Rate 62 73 75 Pulse Rate [ Anterior Bilateral Throughout] Respiratory 18 23 21 Rate Respiratory Rate [Anterior Bilateral Throughout] Blood Pressure 154/77 160/85 171/89 Blood Pressure [Left] O2 Sat by Pulse 94 97 97 Oximetry 05/17/18 05/17/18 05/17/18 05:46 06:00 06:10 Temperature Pulse Rate 86 86 Pulse Rate [ 85 Anterior Bilateral Throughout] Respiratory 34 H 21 Rate Respiratory 14 Rate [Anterior Bilateral Throughout] Blood Pressure 184/106 180/104 Blood Pressure [Left] O2 Sat by Pulse 98 95 Oximetry 05/17/18 06:12 Temperature Pulse Rate 88 Pulse Rate [ Anterior Bilateral Throughout] Respiratory Rate Respiratory Rate [Anterior Bilateral Throughout] Blood Pressure 184/106 Blood Pressure [Left] O2 Sat by Pulse Oximetry ED Medical Decision Making - Lab Data Result diagrams: 05/17/18 02:52 05/17/18 02:52 - EKG Data Rate: normal - EKG Data Interpretation: nonspecific ST-T wave carlos, other (Paced rhythm) - Medical Decision Making Patient received albuterol therapy consults Lasix therapy and will be admitted for CHF exacerbation to the hospitalist service. Patient agreeable with this disposition. Patient also received aspirin therapy during ER visit. - Differential Diagnosis CHF exacerbation; NSTEMI; STEMI; Pneumonia Critical Care Time: Yes Critical care time in (mins) excluding proc time.: 40 Critical care attestation.: If time is entered above; I have spent that time in minutes in the direct care of this critically ill patient, excluding procedure time. Critical care time includes time spent with direct bedside care, frequent reassessments, and physician consultation. ED Disposition Clinical Impression: CHF (congestive heart failure), NSTEMI (non-ST elevated myocardial infarction), Elevated troponin Pneumonia Qualifiers: Pneumonia type: due to unspecified organism Laterality: right Lung location: unspecified part of lung Qualified Code(s): J18.9 - Pneumonia, unspecified organism Disposition: OP ADMIT IP TO THIS HOSP Is pt being admited?: Yes Condition: Fair Time of Disposition: 06:25
[2018-05-17 03:21] LABS: BUN/Creatinine Ratio 14; Blood Urea Nitrogen 15 mg/dL (9-20); Calcium 8.5 mg/dL (8.4-10.2); Hemolysis Index 8
--- NOTE | 2018-05-17 03:33 | XRay Report ---
FINAL REPORT EXAM: XR CHEST 1V AP HISTORY: Shortness of breath TECHNIQUE: AP portable view of the chest. PRIORS: 11/08/2017 FINDINGS: Multiple sternotomy wires and coronary osteal rings are noted. There is a left-sided pacemaker that a ppears adequately positioned. The cardiomediastinal silhouette appears mildly enlarged. There is a right perihilar airspace infiltr ate. The interstitial markings are mildly prominent bilaterally. The bones and soft tissues are unrem arkable. IMPRESSION: Right perihilar infiltrate is most consistent with pneumonia. The bilateral interstitial markings are prominent. This is a nonspecific finding that may be related to pulmonary edema or pneumonia
[2018-05-17] MEDS ORDERED: HALFPRIN EC PO ONE (04:19)
[2018-05-17] MEDS ORDERED: NITROSTAT SL ONE (04:20)
[2018-05-17] MEDS ORDERED: PROVENTIL IH ONE (04:20)
[2018-05-17] MEDS ORDERED: ROCEPHIN/NS 1 GM/50 ML 1 GM/50 ML BAG IV ONE (04:20)
[2018-05-17] MEDS ORDERED: LASIX IV ONE (04:20)
[2018-05-17 04:31] LABS: Chol/HDL Ratio 2.58 %
[2018-05-17] MEDS ORDERED: SODIUM CHLORIDE FLUSH SYRINGE 10 ML IV PRN (05:40)
[2018-05-17] MEDS ORDERED: ZOFRAN IV PRN (05:40)
[2018-05-17] MEDS ORDERED: TYLENOL PO PRN (05:40)
--- NOTE | 2018-05-17 05:59 | History and Physical Report ---
History of Present Illness Date of examination: 05/17/18 Date of admission: 05/17/2018 Chief complaint: 05/17/2018 History of present illness: Patient is a 67-year-old black male with PMHx of CHF, CAD s/p CABG 2007, CVA with left sided weakness, seizures, GERD, COPD, tobacco use disorder who presents to the ER via EMS for complaint of SOB, patient states that he was unable breath and he was having trouble getting inside his house. Patient admits to a history of CAD and CHF for which he takes medication, he admits to take his medication as prescribed. Patient denied any recent illness he complains of lower extremity swelling, complaining of occasional cough, denied any chest pain, denies diaphoresis, denies nausea, denies he is a back surgery vomiting. EMS report that the patient's saturation was 91%, he was gasping for air. On arrival to the ER, his blood pressure was elevated, his O2 sat was 92%, he had Hx SC which showed: Right Christ. Rt perihilar Infiltrate most consistent with pneumonia, bilateral interstitial marking prominent may be related to Pulmonary edema or pneumonia. Patient was initially treated in the ER and admitted for further evaluation and treatments. Past History Past Medical History: CAD, COPD, heart failure, hypertension, hyperlipidemia, liver disease Past Surgical History: CABG, bowel surgery, Other (rt wrist) Social history: single, Lives alone, smoking (1 pack a day until 6 weeks ago), alcohol abuse (with the 2007) Family history: no significant family history Medications and Allergies Allergies Allergy/AdvReac Type Severity Reaction Status Date / Time No Known Allergies Allergy Verified 09/04/17 14:17 Home Medications Medication Instructions Recorded Confirmed Last Taken Type Metoprolol [Lopressor TAB] 25 mg PO BID 06/09/14 09/13/17 05/09/15 21:00 History Apixaban [Eliquis] 5 mg PO BID #60 tablet 05/10/15 09/13/17 03/31/17 Rx levETIRAcetam [Keppra TAB] 2,000 mg PO BID #60 tablet 05/10/15 09/13/17 03/31/17 Rx Amiodarone [Cordarone 200 MG TAB] 200 mg PO QDAY 03/31/17 09/13/17 Unknown History ISOSORBIDE MONOnitrate [Imdur ER] 30 mg PO QDAY 03/31/17 09/13/17 03/31/17 History Lisinopril [Zestril TAB] 2.5 mg PO QDAY 03/31/17 09/13/17 03/31/17 History Aspirin [Lo-Dose Aspirin EC] 81 mg PO DAILY 09/13/17 09/13/17 Unknown History OXcarbazepine [Trileptal] 1,200 mg PO BID 09/13/17 09/13/17 Unknown History Atorvastatin [Lipitor] 40 mg PO DAILY #30 tablet 09/19/17 Unknown Rx Furosemide [Lasix] 20 mg PO QDAY #14 tablet 10/09/17 Unknown Rx Furosemide [Lasix] 20 mg PO QDAY #14 tablet 10/09/17 Unknown Rx Active Meds: Active Medications Acetaminophen (Tylenol) 650 mg PO Q4H PRN PRN Reason: Pain MILD(1-3)/Fever >100.5/WARE Albuterol/Ipratropium (Duoneb *Not For Prn Use*) 1 ampul IH Q6HRT [facility] Ondansetron HCl (Zofran) 4 mg IV Q8H PRN PRN Reason: Nausea And Vomiting Sodium Chloride (Sodium Chloride Flush Syringe 10 Ml) 10 ml IV BID NATHALIE Sodium Chloride (Sodium Chloride Flush Syringe 10 Ml) 10 ml IV PRN PRN PRN Reason: LINE FLUSH Exam - Constitutional Vitals: Temp Pulse Resp BP Pulse Ox 98 F 66 20 146/88 99 05/17/18 02:43 05/17/18 03:42 05/17/18 03:45 05/17/18 03:42 05/17/18 03:45 General appearance: Present: no acute distress - EENT Eyes: Present: PERRL, EOM intact ENT: hearing intact - Neck Neck: Present: supple, normal ROM - Respiratory Respiratory effort: normal Respiratory: bilateral: diminished Results - Labs CBC & Chem 7: 05/17/18 02:52 05/17/18 02:52 Labs: Laboratory Last Values WBC 7.6 K/mm3 (4.5-11.0) 05/17/18 02:52 RBC 3.85 M/mm3 (3.65-5.03) 05/17/18 02:52 Hgb 13.3 gm/dl (11.8-15.2) 05/17/18 02:52 Hct 39.6 % (35.5-45.6) 05/17/18 02:52 MCV 103 fl (84-94) H 05/17/18 02:52 MCH 35 pg (28-32) H 05/17/18 02:52 MCHC 34 % (32-34) 05/17/18 02:52 RDW 15.4 % (13.2-15.2) H 05/17/18 02:52 Plt Count 197 K/mm3 (140-440) 05/17/18 02:52 Lymph % (Auto) 12.1 % (13.4-35.0) L 05/17/18 02:52 [place] % (Auto) 8.3 % (0.0-7.3) H 05/17/18 02:52 Eos % (Auto) 0.6 % (0.0-4.3) 05/17/18 02:52 Baso % (Auto) 0.7 % (0.0-1.8) 05/17/18 02:52 Lymph # 0.9 K/mm3 (1.2-5.4) L 05/17/18 02:52 [place] # 0.6 K/mm3 (0.0-0.8) 05/17/18 02:52 Eos # 0.0 K/mm3 (0.0-0.4) 05/17/18 02:52 Baso # 0.1 K/mm3 (0.0-0.1) 05/17/18 02:52 Seg Neutrophils % 78.3 % (40.0-70.0) H 05/17/18 02:52 Seg Neutrophils # 5.9 K/mm3 (1.8-7.7) 05/17/18 02:52 Sodium 140 mmol/L (137-145) 05/17/18 02:52 Potassium 4.1 mmol/L (3.6-5.0) 05/17/18 02:52 Chloride 103.7 mmol/L (98-107) 05/17/18 02:52 Carbon Dioxide 24 mmol/L (22-30) 05/17/18 02:52 Anion Gap 16 mmol/L 05/17/18 02:52 BUN 15 mg/dL (9-20) 05/17/18 02:52 Creatinine 1.1 mg/dL (0.8-1.5) 05/17/18 02:52 Estimated GFR > 60 ml/min 05/17/18 02:52 BUN/Creatinine Ratio 14 % 05/17/18 02:52 Glucose 119 mg/dL (75-100) H 05/17/18 02:52 Lactic Acid 1.70 mmol/L (0.7-2.0) 05/17/18 04:30 Calcium 8.5 mg/dL (8.4-10.2) 05/17/18 02:52 Total Creatine Kinase 161 units/L (55-170) 05/17/18 02:52 Troponin T 0.060 ng/mL (0.00-0.029) H 05/17/18 02:52 NT-Pro-B Natriuret Pep 1738 pg/mL (0-900) H 05/17/18 02:52 Triglycerides 53 mg/dL (2-149) 05/17/18 02:52 Cholesterol 119 mg/dL (50-199) 05/17/18 02:52 LDL Cholesterol Direct 77 mg/dL (50-130) 05/17/18 02:52 HDL Cholesterol 46 mg/dL (40-59) 05/17/18 02:52 Cholesterol/HDL Ratio 2.58 % 05/17/18 02:52 Assessment and Plan Assessment and plan: 1. Community acquired pneumonia 2. CAD s/p CABG 200 3. Elevated troponin (likely due to CHF 4. 8 CHF(BNP 1738, EFunknown) 5. CVA with left hemiparalysis 6. GERD 7. Seizure disorders Plan: Patient is admitted to med telemetry for CHF Initiate pneumonia protocol Consult cardiology in the a.m. Continue CE Q6hr 2 more Fluid restriction 2000 L Low salt diet Daily weight Lasix 40 daily Monitor electrolytes Resume home meds Plan of care was discussed with patient, voiced understanding Patient condition and plan of care discussed with Dr Toussaint. Advance Directives: Yes VTE prophylaxis?: Chemical Plan of care discussed with patient/family: Yes
[2018-05-17] MEDS ORDERED: XYLOCAINE 1% MPF 5 mL INFILTRATI ONE (06:33)
--- NOTE | 2018-05-17 07:58 | Event Note ---
Date: 05/17/18 Patient seen and examined medical records reviewed Patient with multiple medical problems was admitted this morning with worsening shortness of breath Noted to have right-sided pneumonia, acute on chronic systolic congestive heart failure Medical records reviewed, agree with the current management Follow cardiology evaluation and recommendations
[2018-05-17] MEDS: DUONEB *Not for PRN Use IH SCH ×3 (08:06→19:15)
--- NOTE | 2018-05-17 09:57 | Consultation ---
Addendum entered and electronically signed by TEE PALMA MD 05/17/18 17:46: The patient has a history of a severe ischemic cardiomyopathy, in situ cardiac d efibrillator, presents with shortness of breath and heart failure decompensation. Chest x-ray demonstrates interstitial edema, but additionally, I cannot exclude evidence of a right lower lobe consolidation. Patient admits to dietary salt indiscretion, as the likely contributing factor to his heart failure decompensation. Recommendations: Aggressive treatment with diuretics, IV inotropic therapy. Continue his routine heart failure and coronary artery disease medical therapy. Consider pulmonary consultation for further assessment of the possible right lower lobe consultation. Original Note: History of Present Illness Consult date: 05/17/18 Consult reason: congestive heart failure History of present illness: Mr James is a 67 year old man with a history of ischemic cardiomyopathy, coronary artery disease with prior coronary bypass surgery. In 2013, a cardiac catheterization revealed patent saphenous vein grafts 2 to the circumflex and diagonal branch. The left internal mammary artery graft to the LAD was atrophic, but remained patent with no significant lesions. His latest echocardiogram documents a decreased left ventricular systolic function, ejection fraction 15- 20%. Patient also has an internal cardiac defibrillator in situ and is on Eliquis for paroxysmal atrial fibrillation. Co-morbidities includes COPD, hypertension, seizure disorder Patient presents to this hospital with complaints of shortness of breath, admitted with CHF. Cardiac consultation was requested. Patient denies chest pain and palpitations. There is no lower extremity edema. He denies AICD discharge. A chest xray reports right perihilar infiltrate suggestive of pneumonia Past History Past Medical History: CAD, COPD, heart failure, hypertension, hyperlipidemia, liver disease Past Surgical History: CABG, bowel surgery, Other (rt wrist) Social history: single, Lives alone, smoking (1 pack a day until 6 weeks ago), alcohol abuse (with the 2007) Family history: no significant family history Medications and Allergies Allergies Allergy/AdvReac Type Severity Reaction Status Date / Time No Known Allergies Allergy Verified 09/04/17 14:17 Home Medications Medication Instructions Recorded Confirmed Last Taken Type Metoprolol [Lopressor TAB] 25 mg PO BID 06/09/14 09/13/17 05/09/15 21:00 History Apixaban [Eliquis] 5 mg PO BID #60 tablet 05/10/15 09/13/17 03/31/17 Rx levETIRAcetam [Keppra TAB] 2,000 mg PO BID #60 tablet 05/10/15 09/13/17 03/31/17 Rx Amiodarone [Cordarone 200 MG TAB] 200 mg PO QDAY 03/31/17 09/13/17 Unknown History ISOSORBIDE MONOnitrate [Imdur ER] 30 mg PO QDAY 03/31/17 09/13/17 03/31/17 History Lisinopril [Zestril TAB] 2.5 mg PO QDAY 03/31/17 09/13/17 03/31/17 History Aspirin [Lo-Dose Aspirin EC] 81 mg PO DAILY 09/13/17 09/13/17 Unknown History OXcarbazepine [Trileptal] 1,200 mg PO BID 09/13/17 09/13/17 Unknown History Atorvastatin [Lipitor] 40 mg PO DAILY #30 tablet 09/19/17 Unknown Rx Furosemide [Lasix] 20 mg PO QDAY #14 tablet 10/09/17 Unknown Rx Furosemide [Lasix] 20 mg PO QDAY #14 tablet 10/09/17 Unknown Rx Active Meds: Active Medications Acetaminophen (Tylenol) 650 mg PO Q4H PRN PRN Reason: Pain MILD(1-3)/Fever >100.5/WARE Albuterol/Ipratropium (Duoneb *Not For Prn Use*) 1 ampul IH Q6HRT [facility] Last Admin: 05/17/18 08:06 Dose: 1 ampul Documented by: Amiodarone HCl (Cordarone) 200 mg PO QDAY [facility] Apixaban (Eliquis) 5 mg PO BID [facility]; Protocol Aspirin (Halfprin Ec) 81 mg PO DAILY [facility] Atorvastatin Calcium (Lipitor) 40 mg PO DAILY [facility] Furosemide (Lasix) 20 mg PO QDAY [facility] Furosemide (Lasix) 40 mg IV Q12H [facility] Piperacillin Sod/Tazobactam Sod (Zosyn/Ns 3.375gm/50ml) 3.375 gm in 50 mls @ 100 mls/hr IV Q8HR [facility]; Protocol Stop: 05/20/18 06:36 Isosorbide Mononitrate (Imdur) 30 mg PO QDAY [facility] Levetiracetam (Keppra) 2,000 mg PO BID [facility] Lidocaine (Xylocaine 1% Mpf 5 Ml) 2 ml INFILTRATI ONCE ONE Stop: 05/17/18 06:34 Metoprolol Tartrate (Lopressor) 25 mg PO BID [facility] Miscellaneous Medication (Lisinopril [Zestril Tab]) 2.5 mg PO QDAY [facility] Miscellaneous Medication (Oxcarbazepine [Trileptal]) 1,200 mg PO BID [facility] Ondansetron HCl (Zofran) 4 mg IV Q8H PRN PRN Reason: Nausea And Vomiting Sodium Chloride (Sodium Chloride Flush Syringe 10 Ml) 10 ml IV BID NATHALIE Sodium Chloride (Sodium Chloride Flush Syringe 10 Ml) 10 ml IV PRN PRN PRN Reason: LINE FLUSH Physical Examination Vital Signs Pulse Ox 95 05/17/18 02:36 Results 05/17/18 02:52 05/17/18 02:52 Lipids 05/17/18 Range/Units 02:52 Triglycerides 53 (2-149) mg/dL Cholesterol 119 (50-199) mg/dL HDL Cholesterol 46 (40-59) mg/dL Cholesterol/HDL Ratio 2.58 % CBC 05/17/18 Range/Units 02:52 WBC 7.6 (4.5-11.0) K/mm3 RBC 3.85 (3.65-5.03) M/mm3 Hgb 13.3 (11.8-15.2) gm/dl Hct 39.6 (35.5-45.6) % Plt Count 197 (140-440) K/mm3 Lymph # 0.9 L (1.2-5.4) K/mm3 [place] # 0.6 (0.0-0.8) K/mm3 Eos # 0.0 (0.0-0.4) K/mm3 Baso # 0.1 (0.0-0.1) K/mm3 Comprehensive Metabolic Panel 05/17/18 Range/Units 02:52 Sodium 140 (137-145) mmol/L Potassium 4.1 (3.6-5.0) mmol/L Chloride 103.7 (98-107) mmol/L Carbon Dioxide 24 (22-30) mmol/L BUN 15 (9-20) mg/dL Creatinine 1.1 (0.8-1.5) mg/dL Glucose 119 H (75-100) mg/dL Calcium 8.5 (8.4-10.2) mg/dL Assessment and Plan Acute on chronic systolic heart failure Ischemic cardiomyopathy, EF 15% Paroxysmal atrial fibrillation/atrial flutter on eliquis for oral anticoagulation and amiodarone for suppression Hx of CAD with prior CABG Presence of AICD Hx of Seizure disorder Hx of CVA Recommend: Aggressive management for acute on chronic systolic failure. We will initiate a trial of intravenous milrinone therapy. Continue medical therapy for coronary artery disease and paroxysmal Afib.
[2018-05-17] MEDS ORDERED: KEPPRA PO SCH (10:00)
[2018-05-17] MEDS ORDERED: OXCARBAZEPINE 1200 MG PO SCH (10:00)
[2018-05-17] MEDS ORDERED: LASIX IV SCH (10:00)
[2018-05-17] MEDS ORDERED: NON-FORMULARY (Lisinopril [Zestril Tab] 2.5 MG) PO SCH (10:00)
[2018-05-17] MEDS ORDERED: ROCEPHIN IM SCH (10:00)
[2018-05-17] MEDS ORDERED: LASIX PO SCH (11:00)
[2018-05-17] MEDS: ELIQUIS PO SCH ×2 (12:01→21:59)
[2018-05-17] MEDS: LOPRESSOR PO SCH ×2 (12:01→21:59)
[2018-05-17] MEDS: TRILEPTAL PO SCH ×2 (12:01→21:59)
[2018-05-17] MEDS: CORDARONE PO SCH (12:01)
[2018-05-17] MEDS: HALFPRIN EC PO SCH (12:01)
[2018-05-17] MEDS: IMDUR PO SCH (12:01)
[2018-05-17] MEDS: ZESTRIL PO SCH (12:02)
[2018-05-17] MEDS: SODIUM CHLORIDE FLUSH SYRINGE 10 ML IV SCH ×2 (12:04→22:00)
[2018-05-17] MEDS: LASIX IV SCH ×2 (12:11→18:04)
[2018-05-17] MEDS ORDERED: MILRINONE-D5W 20 MG/100 ML 20 MG/100 ML BAG IV SCH (16:00)
[2018-05-17] MEDS: ZOSYN/NS 3.375GM/50ML 3.375 GM/50 ML BAG IV SCH ×2 (18:03→22:01)
[2018-05-17] MEDS: KEPPRA PO SCH ×2 (18:04→21:59)
[2018-05-18] MEDS: DUONEB *Not for PRN Use IH SCH ×4 (03:27→19:35)
[2018-05-18 04:59] LABS: Basophils % (Auto) 0.7 % (0.0-1.8); Eosinophils # (Auto) 0.1 K/mm3 (0.0-0.4); Eosinophils % (Auto) 1.9 % (0.0-4.3); Hematocrit 39.5 % (35.5-45.6); Hemoglobin 13.3 gm/dl (11.8-15.2); Lymphocytes # (Auto) 1.1 K/mm3 (1.2-5.4); Lymphocytes % (Auto) 17.7 % (13.4-35.0); Mean Corpuscular HGB Conc 34 % (32-34); Mean Corpuscular Volume 103 fl (84-94); Monocytes # (Auto) 0.7 K/mm3 (0.0-0.8); Monocytes % (Auto) 11.3 % (0.0-7.3); Platelet Count 222 K/mm3 (140-440); Red Blood Count 3.86 M/mm3 (3.65-5.03); Red Cell Distribution Width 15.8 % (13.2-15.2)
[2018-05-18 05:20] LABS: BUN/Creatinine Ratio 17; Blood Urea Nitrogen 17 mg/dL (9-20); Calcium 8.5 mg/dL (8.4-10.2); Hemolysis Index 3
[2018-05-18] MEDS: LASIX IV SCH ×2 (06:25→17:31)
[2018-05-18] MEDS: ZOSYN/NS 3.375GM/50ML 3.375 GM/50 ML BAG IV SCH ×3 (06:35→21:30)
--- NOTE | 2018-05-18 09:13 | Progress Note ---
Addendum entered and electronically signed by KATH MIRELES MD 05/18/18 11:24: Patient seen and examined by me Patient complaining of chest tightness this morning. Repeat ECG is showing no changes when compared to previous Patient admits that he has chronic intermittent chest tightness Exam is showing euvolemia with clear breath sounds, and no JVD Discontinue milrinone Nitropatch Continue to trend troponin Monitor daily BUN and creatinine Original Note: Assessment and Plan Pneumonia Acute on chronic systolic heart failure Ischemic cardiomyopathy, EF 15% Paroxysmal atrial fibrillation/atrial flutter on eliquis for oral anticoagulation and amiodarone for suppression Hx of CAD with prior CABG Presence of AICD Hx of Seizure disorder Hx of CVA Recommend: Aggressive management for acute on chronic systolic failure including trial of intravenous milrinone therapy. Continue medical therapy for coronary artery disease and paroxysmal Afib. Consider pulmonary consultation for further assessment of the possible right lower lobe consolidation. Subjective Date of service: 05/18/18 Interval history: Patient complains of chest pain. No acute ischemic changes on a stat EKG done. Objective Vital Signs Temp Pulse Pulse Pulse Pulse Pulse Resp 05/18/18 08:59 92 H 92 H 92 H 18 05/18/18 08:25 66 05/18/18 06:00 92 H 05/18/18 04:30 97.1 F L 65 14 05/17/18 23:31 98.2 F 74 16 05/17/18 22:00 76 20 05/17/18 21:59 123 H 05/17/18 21:08 97.3 F L 123 H 16 05/17/18 19:25 80 05/17/18 19:15 76 05/17/18 16:16 97.9 F 68 18 05/17/18 14:40 78 05/17/18 14:25 72 05/17/18 12:20 05/17/18 12:13 97.4 F L 68 18 Resp BP Pulse Ox 05/18/18 08:59 99 05/18/18 08:25 116/63 98 05/18/18 06:00 05/18/18 04:30 101/54 91 05/17/18 23:31 104/59 93 05/17/18 22:00 05/17/18 21:59 120/74 05/17/18 21:08 120/74 92 05/17/18 19:25 18 05/17/18 19:15 18 98 05/17/18 16:16 162/80 98 05/17/18 14:40 18 05/17/18 14:25 18 05/17/18 12:20 99 05/17/18 12:13 128/83 98 - Physical Examination General: No Apparent Distress HEENT: Positive: PERRL Cardiac: Positive: Reg Rate and Rhythm Lungs: Positive: Decreased Breath Sounds Neuro: Positive: Grossly Intact Extremities: Absent: edema - Labs and Meds CBC 05/18/18 Range/Units 03:46 WBC 6.2 (4.5-11.0) K/mm3 RBC 3.86 (3.65-5.03) M/mm3 Hgb 13.3 (11.8-15.2) gm/dl Hct 39.5 (35.5-45.6) % Plt Count 222 (140-440) K/mm3 Lymph # 1.1 L (1.2-5.4) K/mm3 [place] # 0.7 (0.0-0.8) K/mm3 Eos # 0.1 (0.0-0.4) K/mm3 Baso # 0.0 (0.0-0.1) K/mm3 Comprehensive Metabolic Panel 05/18/18 Range/Units 03:46 Sodium 140 (137-145) mmol/L Potassium 3.5 L (3.6-5.0) mmol/L Chloride 99.9 (98-107) mmol/L Carbon Dioxide 26 (22-30) mmol/L BUN 17 (9-20) mg/dL Creatinine 1.0 (0.8-1.5) mg/dL Glucose 101 H (75-100) mg/dL Calcium 8.5 (8.4-10.2) mg/dL
[2018-05-18] MEDS: HALFPRIN EC PO SCH (10:05)
[2018-05-18] MEDS: KEPPRA PO SCH ×2 (10:05→21:29)
[2018-05-18] MEDS: ELIQUIS PO SCH ×2 (10:06→21:32)
[2018-05-18] MEDS: TRILEPTAL PO SCH ×2 (10:06→21:30)
[2018-05-18] MEDS: CORDARONE PO SCH (10:07)
[2018-05-18] MEDS: IMDUR PO SCH (10:08)
[2018-05-18] MEDS: ZESTRIL PO SCH (10:09)
[2018-05-18] MEDS: LOPRESSOR PO SCH ×2 (10:09→21:32)
[2018-05-18] MEDS: SODIUM CHLORIDE FLUSH SYRINGE 10 ML IV SCH ×2 (10:10→21:31)
--- NOTE | 2018-05-18 10:14 | Progress Note ---
Assessment and Plan Assessment and plan: --Right-sided pneumonia; community-acquired Continue current antibiotics, follow cultures, pulmonary evaluation if needed --Acute on chronic systolic congestive heart failure; LVEF 15% Continue anti-failure medications, cardiology following --History of AICD; stable --Positive cardiac enzymes; secondary to acute on chronic CHF Cardiology following --History of coronary artery disease status post CABG; continue Current cardiac medications --Paroxysmal A. fib/flutter; continue amiodarone and anticoagulation Cardiology following --History of seizure disorder; seizure precautions Antiepileptic medications --History of CVA with residual weakness; supportive care Physical therapy as needed --DVT prophylaxis; patient is already on Eliquis Closely monitor the patient and adjust management as needed Possible discharge in 1-2 days if stable History Interval history: Patient seen and exam and medical records reviewed Patient feels slightly better still has mild shortness of breath and cough denies chest pain Alert awake oriented 3 Vital signs noted Hospitalist Physical - Constitutional Vitals: Temp Pulse Resp BP Pulse Ox 97.1 F L 92 H 18 101/54 99 05/18/18 04:30 05/18/18 10:09 05/18/18 08:59 05/18/18 10:09 05/18/18 08:59 General appearance: Present: no acute distress, well-nourished, obese - EENT Eyes: Present: PERRL, EOM intact - Neck Neck: Present: supple, normal ROM - Respiratory Respiratory effort: normal Respiratory: bilateral: diminished, rhonchi, negative: rales, wheezing - Cardiovascular Rhythm: regular Heart Sounds: Present: S1 & S2 - Extremities Extremities: no ischemia, No edema - Abdominal General gastrointestinal: soft, non-tender, non-distended, normal bowel sounds - Integumentary Integumentary: Present: clear, warm - Psychiatric Psychiatric: appropriate mood/affect, cooperative - Neurologic Neurologic: CNII-XII intact, moves all extremities Results - Labs CBC & Chem 7: 05/18/18 03:46 05/18/18 03:46 Labs: Laboratory Last Values WBC 6.2 K/mm3 (4.5-11.0) 05/18/18 03:46 RBC 3.86 M/mm3 (3.65-5.03) 05/18/18 03:46 Hgb 13.3 gm/dl (11.8-15.2) 05/18/18 03:46 Hct 39.5 % (35.5-45.6) 05/18/18 03:46 MCV 103 fl (84-94) H 05/18/18 03:46 MCH 35 pg (28-32) H 05/18/18 03:46 MCHC 34 % (32-34) 05/18/18 03:46 RDW 15.8 % (13.2-15.2) H 05/18/18 03:46 Plt Count 222 K/mm3 (140-440) 05/18/18 03:46 Lymph % (Auto) 17.7 % (13.4-35.0) 05/18/18 03:46 [place] % (Auto) 11.3 % (0.0-7.3) H 05/18/18 03:46 Eos % (Auto) 1.9 % (0.0-4.3) 05/18/18 03:46 Baso % (Auto) 0.7 % (0.0-1.8) 05/18/18 03:46 Lymph # 1.1 K/mm3 (1.2-5.4) L 05/18/18 03:46 [place] # 0.7 K/mm3 (0.0-0.8) 05/18/18 03:46 Eos # 0.1 K/mm3 (0.0-0.4) 05/18/18 03:46 Baso # 0.0 K/mm3 (0.0-0.1) 05/18/18 03:46 Seg Neutrophils % 68.4 % (40.0-70.0) 05/18/18 03:46 Seg Neutrophils # 4.2 K/mm3 (1.8-7.7) 05/18/18 03:46 Sodium 140 mmol/L (137-145) 05/18/18 03:46 Potassium 3.5 mmol/L (3.6-5.0) L 05/18/18 03:46 Chloride 99.9 mmol/L (98-107) 05/18/18 03:46 Carbon Dioxide 26 mmol/L (22-30) 05/18/18 03:46 Anion Gap 18 mmol/L 05/18/18 03:46 BUN 17 mg/dL (9-20) 05/18/18 03:46 Creatinine 1.0 mg/dL (0.8-1.5) 05/18/18 03:46 Estimated GFR > 60 ml/min 05/18/18 03:46 BUN/Creatinine Ratio 17 % 05/18/18 03:46 Glucose 101 mg/dL (75-100) H 05/18/18 03:46 POC Glucose 118 (70-105) H 05/18/18 05:42 Lactic Acid 1.70 mmol/L (0.7-2.0) 05/17/18 04:30 Calcium 8.5 mg/dL (8.4-10.2) 05/18/18 03:46 Magnesium 1.90 mg/dL (1.7-2.3) 05/18/18 03:46 Total Creatine Kinase 161 units/L (55-170) 05/17/18 02:52 Troponin T 0.060 ng/mL (0.00-0.029) H 05/17/18 02:52 NT-Pro-B Natriuret Pep 1738 pg/mL (0-900) H 05/17/18 02:52 Triglycerides 53 mg/dL (2-149) 05/17/18 02:52 Cholesterol 119 mg/dL (50-199) 05/17/18 02:52 LDL Cholesterol Direct 77 mg/dL (50-130) 05/17/18 02:52 HDL Cholesterol 46 mg/dL (40-59) 05/17/18 02:52 Cholesterol/HDL Ratio 2.58 % 05/17/18 02:52
[2018-05-18] MEDS ORDERED: K-DUR PO NR (10:30)
[2018-05-19] MEDS: DUONEB *Not for PRN Use IH SCH ×4 (01:40→21:02)
[2018-05-19] MEDS: ZOSYN/NS 3.375GM/50ML 3.375 GM/50 ML BAG IV SCH ×3 (06:01→21:20)
[2018-05-19] MEDS: LASIX IV SCH ×2 (06:01→17:19)
[2018-05-19] MEDS: NITRO DUR TD SCH (06:03)
[2018-05-19] MEDS: TRILEPTAL PO SCH ×2 (09:50→21:21)
[2018-05-19] MEDS: KEPPRA PO SCH ×2 (09:50→21:21)
[2018-05-19] MEDS: ELIQUIS PO SCH ×2 (09:50→21:22)
[2018-05-19] MEDS: CORDARONE PO SCH (09:51)
[2018-05-19] MEDS: HALFPRIN EC PO SCH (09:51)
[2018-05-19] MEDS: LOPRESSOR PO SCH ×2 (09:52→21:22)
[2018-05-19] MEDS: ZESTRIL PO SCH (09:53)
[2018-05-19] MEDS: SODIUM CHLORIDE FLUSH SYRINGE 10 ML IV SCH ×2 (09:54→21:22)
--- NOTE | 2018-05-19 11:09 | Progress Note ---
Assessment and Plan Assessment and plan: --Right-sided pneumonia; community-acquired Continue current antibiotics, follow cultures, follow up chest x-ray tomorrow pulmonary evaluation if no improvement --Acute on chronic systolic congestive heart failure; LVEF 15% Continue anti-failure medications, cardiology following --Positive cardiac enzymes; secondary to acute on chronic CHF Cardiology following --History of AICD; stable --History of coronary artery disease status post CABG; continue Current cardiac medications --Paroxysmal A. fib/flutter; continue amiodarone and chr.anticoagulation Cardiology following --History of seizure disorder; seizure precautions Antiepileptic medications --History of CVA with residual weakness; supportive care Physical therapy as needed --DVT prophylaxis; patient is already on Eliquis Closely monitor the patient and adjust management as needed Possible discharge in 1-2 days if stable History Interval history: Patient examined medical records reviewed No new events reported by nursing Patient feels better and wants to go home Alert awake oriented Vital signs reviewed Hospitalist Physical - Constitutional Vitals: Temp Pulse Resp BP Pulse Ox 97.3 F L 90 18 104/70 93 05/19/18 08:36 05/19/18 09:53 05/19/18 08:36 05/19/18 09:53 05/19/18 08:36 General appearance: Present: no acute distress, well-nourished, obese - EENT Eyes: Present: PERRL, EOM intact - Neck Neck: Present: supple, normal ROM - Respiratory Respiratory effort: normal Respiratory: bilateral: diminished, negative: rales, rhonchi, wheezing - Cardiovascular Rhythm: regular Heart Sounds: Present: S1 & S2 - Extremities Extremities: no ischemia, No edema - Abdominal General gastrointestinal: soft, non-tender, non-distended, normal bowel sounds - Integumentary Integumentary: Present: clear, warm - Psychiatric Psychiatric: appropriate mood/affect, cooperative - Neurologic Neurologic: CNII-XII intact, moves all extremities Results - Labs CBC & Chem 7: 05/18/18 03:46 05/18/18 03:46 Labs: Laboratory Last Values WBC 6.2 K/mm3 (4.5-11.0) 05/18/18 03:46 RBC 3.86 M/mm3 (3.65-5.03) 05/18/18 03:46 Hgb 13.3 gm/dl (11.8-15.2) 05/18/18 03:46 Hct 39.5 % (35.5-45.6) 05/18/18 03:46 MCV 103 fl (84-94) H 05/18/18 03:46 MCH 35 pg (28-32) H 05/18/18 03:46 MCHC 34 % (32-34) 05/18/18 03:46 RDW 15.8 % (13.2-15.2) H 05/18/18 03:46 Plt Count 222 K/mm3 (140-440) 05/18/18 03:46 Lymph % (Auto) 17.7 % (13.4-35.0) 05/18/18 03:46 [place] % (Auto) 11.3 % (0.0-7.3) H 05/18/18 03:46 Eos % (Auto) 1.9 % (0.0-4.3) 05/18/18 03:46 Baso % (Auto) 0.7 % (0.0-1.8) 05/18/18 03:46 Lymph # 1.1 K/mm3 (1.2-5.4) L 05/18/18 03:46 [place] # 0.7 K/mm3 (0.0-0.8) 05/18/18 03:46 Eos # 0.1 K/mm3 (0.0-0.4) 05/18/18 03:46 Baso # 0.0 K/mm3 (0.0-0.1) 05/18/18 03:46 Seg Neutrophils % 68.4 % (40.0-70.0) 05/18/18 03:46 Seg Neutrophils # 4.2 K/mm3 (1.8-7.7) 05/18/18 03:46 Sodium 140 mmol/L (137-145) 05/18/18 03:46 Potassium 3.5 mmol/L (3.6-5.0) L 05/18/18 03:46 Chloride 99.9 mmol/L (98-107) 05/18/18 03:46 Carbon Dioxide 26 mmol/L (22-30) 05/18/18 03:46 Anion Gap 18 mmol/L 05/18/18 03:46 BUN 17 mg/dL (9-20) 05/18/18 03:46 Creatinine 1.0 mg/dL (0.8-1.5) 05/18/18 03:46 Estimated GFR > 60 ml/min 05/18/18 03:46 BUN/Creatinine Ratio 17 % 05/18/18 03:46 Glucose 101 mg/dL (75-100) H 05/18/18 03:46 POC Glucose 94 (70-105) 05/19/18 05:42 Lactic Acid 1.70 mmol/L (0.7-2.0) 05/17/18 04:30 Calcium 8.5 mg/dL (8.4-10.2) 05/18/18 03:46 Magnesium 1.90 mg/dL (1.7-2.3) 05/18/18 03:46 Total Creatine Kinase 161 units/L (55-170) 05/17/18 02:52 Troponin T 0.057 ng/mL (0.00-0.029) H 05/18/18 11:39 NT-Pro-B Natriuret Pep 1738 pg/mL (0-900) H 05/17/18 02:52 Triglycerides 53 mg/dL (2-149) 05/17/18 02:52 Cholesterol 119 mg/dL (50-199) 05/17/18 02:52 LDL Cholesterol Direct 77 mg/dL (50-130) 05/17/18 02:52 HDL Cholesterol 46 mg/dL (40-59) 05/17/18 02:52 Cholesterol/HDL Ratio 2.58 % 05/17/18 02:52
--- NOTE | 2018-05-19 12:54 | Progress Note ---
Assessment and Plan - Patient Problems (1) CHF (congestive heart failure) Current Visit: Yes Status: Acute Plan to address problem: Continue medical therapy for coronary artery disease and ischemic cardiomyopathy. Subjective Date of service: 05/19/18 Interval history: The patient is comfortable, no chest pain, no shortness of breath, looks and feels better. Objective Vital Signs Temp Pulse Pulse Pulse Pulse Resp Resp 05/19/18 11:31 98.5 F 86 18 05/19/18 10:00 80 20 05/19/18 09:53 90 05/19/18 09:52 90 05/19/18 08:36 97.3 F L 101 H 18 05/19/18 08:19 96 H 05/19/18 08:03 96 H 05/19/18 08:02 05/19/18 06:00 60 05/19/18 03:56 98.4 F 61 16 05/18/18 23:17 98.6 F 61 14 05/18/18 22:00 75 75 18 05/18/18 21:32 84 05/18/18 19:44 85 18 05/18/18 19:42 98.4 F 84 16 05/18/18 19:35 83 18 05/18/18 17:01 89 05/18/18 14:00 55 L 05/18/18 13:58 63 05/18/18 13:44 05/18/18 13:35 63 Resp Resp BP Pulse Ox 05/19/18 11:31 115/62 94 05/19/18 10:00 18 99 05/19/18 09:53 104/70 05/19/18 09:52 104/70 05/19/18 08:36 104/73 93 05/19/18 08:19 20 05/19/18 08:03 18 05/19/18 08:02 96 05/19/18 06:00 05/19/18 03:56 116/67 100 05/18/18 23:17 113/62 95 05/18/18 22:00 98 05/18/18 21:32 138/73 05/18/18 19:44 05/18/18 19:42 138/73 100 05/18/18 19:35 94 05/18/18 17:01 120/57 96 05/18/18 14:00 05/18/18 13:58 18 05/18/18 13:44 96 05/18/18 13:35 20 - Physical Examination General: No Apparent Distress HEENT: Positive: PERRL Neck: Positive: neck supple Cardiac: Positive: Reg Rate and Rhythm Lungs: Positive: Decreased Breath Sounds Neuro: Positive: Grossly Intact Abdomen: Positive: Soft Skin: Positive: Clear Extremities: Absent: edema
[2018-05-20] MEDS: DUONEB *Not for PRN Use IH SCH ×4 (03:05→19:51)
[2018-05-20 05:08] LABS: Basophils % (Auto) 0.5 % (0.0-1.8); Eosinophils # (Auto) 0.1 K/mm3 (0.0-0.4); Eosinophils % (Auto) 0.8 % (0.0-4.3); Hematocrit 46.9 % (35.5-45.6); Hemoglobin 15.7 gm/dl (11.8-15.2); Lymphocytes # (Auto) 0.8 K/mm3 (1.2-5.4); Lymphocytes % (Auto) 9.2 % (13.4-35.0); Mean Corpuscular HGB Conc 33 % (32-34); Mean Corpuscular Volume 103 fl (84-94); Monocytes % (Auto) 10.4 % (0.0-7.3); Platelet Count 243 K/mm3 (140-440); Red Blood Count 4.53 M/mm3 (3.65-5.03); Red Cell Distribution Width 15.5 % (13.2-15.2)
[2018-05-20 05:19] LABS: BUN/Creatinine Ratio 21; Blood Urea Nitrogen 29 mg/dL (9-20); Hemolysis Index 25
[2018-05-20] MEDS: LASIX IV SCH (05:52)
[2018-05-20] MEDS: ZOSYN/NS 3.375GM/50ML 3.375 GM/50 ML BAG IV SCH (05:52)
[2018-05-20] MEDS: NITRO DUR TD SCH (05:53)
--- NOTE | 2018-05-20 08:55 | Progress Note ---
Assessment and Plan Assessment and plan: --Acute on chronic systolic congestive heart failure; LVEF 15% on anti-failure medications, symptoms slightly improved Cardiology following --Right-sided pneumonia; community-acquired Oxygen titrate to O2 sats more than 90%, antibiotics, cultures negative to date, follow chest x-ray today --Positive cardiac enzymes; secondary to acute on chronic CHF Cardiology following --History of AICD; stable --History of coronary artery disease status post CABG; continue Current cardiac medications --Paroxysmal A. fib/flutter; rate controlled ,on amiodarone and chr.anticoagulation Eliquis --History of seizure disorder; seizure precautions Antiepileptic medications --History of CVA with residual weakness; supportive care Physical therapy as needed --DVT prophylaxis; patient is already on Eliquis Physical therapy evaluation for home PT DC tomorrow with home health services if stable Resting and ambulatory room air oxygen more than 97% No indication for home oxygen at discharge Closely monitor the patient and adjust management as needed Possible discharge tomorrow if stable History Interval history: Patient Seen and examined medical records reviewed The patient feels slightly better no new complaints Vital signs noted Chest x-ray repeated today pending report Hospitalist Physical - Constitutional Vitals: Temp Pulse Resp BP Pulse Ox 97.5 F L 86 18 108/63 94 05/20/18 07:41 05/20/18 07:58 05/20/18 07:58 05/20/18 07:40 05/20/18 07:40 General appearance: Present: no acute distress, well-nourished - EENT Eyes: Present: PERRL, EOM intact - Neck Neck: Present: supple, normal ROM - Respiratory Respiratory effort: normal Respiratory: bilateral: diminished, negative: rales, rhonchi, wheezing - Cardiovascular Rhythm: regular Heart Sounds: Present: S1 & S2 - Extremities Extremities: no ischemia, No edema - Abdominal General gastrointestinal: soft, non-tender, non-distended, normal bowel sounds - Integumentary Integumentary: Present: clear, warm - Psychiatric Psychiatric: appropriate mood/affect, cooperative - Neurologic Neurologic: CNII-XII intact, moves all extremities Results - Labs CBC & Chem 7: 05/20/18 03:46 05/20/18 03:46 Labs: Laboratory Last Values WBC 9.2 K/mm3 (4.5-11.0) 05/20/18 03:46 RBC 4.53 M/mm3 (3.65-5.03) 05/20/18 03:46 Hgb 15.7 gm/dl (11.8-15.2) H 05/20/18 03:46 Hct 46.9 % (35.5-45.6) H D 05/20/18 03:46 MCV 103 fl (84-94) H 05/20/18 03:46 MCH 35 pg (28-32) H 05/20/18 03:46 MCHC 33 % (32-34) 05/20/18 03:46 RDW 15.5 % (13.2-15.2) H 05/20/18 03:46 Plt Count 243 K/mm3 (140-440) 05/20/18 03:46 Lymph % (Auto) 9.2 % (13.4-35.0) L 05/20/18 03:46 [place] % (Auto) 10.4 % (0.0-7.3) H 05/20/18 03:46 Eos % (Auto) 0.8 % (0.0-4.3) 05/20/18 03:46 Baso % (Auto) 0.5 % (0.0-1.8) 05/20/18 03:46 Lymph # 0.8 K/mm3 (1.2-5.4) L 05/20/18 03:46 [place] # 1.0 K/mm3 (0.0-0.8) H 05/20/18 03:46 Eos # 0.1 K/mm3 (0.0-0.4) 05/20/18 03:46 Baso # 0.0 K/mm3 (0.0-0.1) 05/20/18 03:46 Seg Neutrophils % 79.1 % (40.0-70.0) H 05/20/18 03:46 Seg Neutrophils # 7.3 K/mm3 (1.8-7.7) 05/20/18 03:46 Sodium 132 mmol/L (137-145) L D 05/20/18 03:46 Potassium 3.9 mmol/L (3.6-5.0) 05/20/18 03:46 Chloride 88.2 mmol/L (98-107) L 05/20/18 03:46 Carbon Dioxide 29 mmol/L (22-30) 05/20/18 03:46 Anion Gap 19 mmol/L 05/20/18 03:46 BUN 29 mg/dL (9-20) H 05/20/18 03:46 Creatinine 1.4 mg/dL (0.8-1.5) 05/20/18 03:46 Estimated GFR > 60 ml/min 05/20/18 03:46 BUN/Creatinine Ratio 21 % 05/20/18 03:46 Glucose 121 mg/dL (75-100) H 05/20/18 03:46 POC Glucose 115 (70-105) H 05/20/18 05:44 Lactic Acid 1.70 mmol/L (0.7-2.0) 05/17/18 04:30 Calcium 10.0 mg/dL (8.4-10.2) D 05/20/18 03:46 Magnesium 1.90 mg/dL (1.7-2.3) 05/18/18 03:46 Total Creatine Kinase 161 units/L (55-170) 05/17/18 02:52 Troponin T 0.057 ng/mL (0.00-0.029) H 05/18/18 11:39 NT-Pro-B Natriuret Pep 1738 pg/mL (0-900) H 05/17/18 02:52 Triglycerides 53 mg/dL (2-149) 05/17/18 02:52 Cholesterol 119 mg/dL (50-199) 05/17/18 02:52 LDL Cholesterol Direct 77 mg/dL (50-130) 05/17/18 02:52 HDL Cholesterol 46 mg/dL (40-59) 05/17/18 02:52 Cholesterol/HDL Ratio 2.58 % 05/17/18 02:52
--- NOTE | 2018-05-20 09:28 | XRay Report ---
FINAL REPORT EXAM: XR CHEST ROUTINE 2V HISTORY: f/u pneumonia TECHNIQUE: PA and lateral chest radiographs PRIORS: 05/17/2018 FINDINGS: No mediastinal shift. Mild cardiomegaly. Overlying sternotomy wires. Left chest pacemaker. No pneumot horax, effusion, or focal airspace disease. No acute skeletal finding. IMPRESSION: Improved aeration of the lower lungs compared to 05/17/2018.
[2018-05-20] MEDS: LOPRESSOR PO SCH ×2 (10:09→22:06)
[2018-05-20] MEDS: ELIQUIS PO SCH ×2 (10:10→22:06)
[2018-05-20] MEDS: CORDARONE PO SCH (10:10)
[2018-05-20] MEDS: KEPPRA PO SCH ×2 (10:10→22:06)
[2018-05-20] MEDS: HALFPRIN EC PO SCH (10:11)
[2018-05-20] MEDS: TRILEPTAL PO SCH ×2 (10:11→22:05)
[2018-05-20] MEDS: SODIUM CHLORIDE FLUSH SYRINGE 10 ML IV SCH ×2 (10:11→22:07)
[2018-05-20] MEDS: ZESTRIL PO SCH (10:12)
--- NOTE | 2018-05-20 13:01 | Progress Note ---
Assessment and Plan - Patient Problems (1) CHF (congestive heart failure) Current Visit: Yes Status: Acute Plan to address problem: Continue medical therapy for coronary artery disease and ischemic cardiomyopathy. Subjective Date of service: 05/20/18 Interval history: The patient is comfortable, no chest pain, no shortness of breath, looks and feels better. Objective Vital Signs Temp Pulse Pulse Pulse Pulse Pulse Resp 05/20/18 11:47 93 H 05/20/18 10:12 93 H 05/20/18 10:09 93 H 05/20/18 10:00 86 86 86 19 05/20/18 07:58 86 05/20/18 07:41 97.5 F L 05/20/18 07:40 63 18 05/20/18 06:00 66 05/20/18 05:53 65 05/20/18 05:48 98.8 F 64 20 05/20/18 05:02 97.7 F 67 20 05/19/18 23:52 98.6 F 67 22 05/19/18 22:00 76 05/19/18 21:22 95 H 05/19/18 19:48 97.7 F 97 H 20 05/19/18 17:09 100 H 05/19/18 14:41 90 05/19/18 14:28 81 05/19/18 14:00 74 Resp BP Pulse Ox 05/20/18 11:47 154/82 92 05/20/18 10:12 111/77 05/20/18 10:09 111/77 05/20/18 10:00 98 05/20/18 07:58 18 05/20/18 07:41 05/20/18 07:40 108/63 94 05/20/18 06:00 05/20/18 05:53 109/67 05/20/18 05:48 109/67 96 05/20/18 05:02 104/60 95 05/19/18 23:52 146/85 93 05/19/18 22:00 05/19/18 21:22 111/71 05/19/18 19:48 111/71 90 05/19/18 17:09 139/79 94 05/19/18 14:41 20 05/19/18 14:28 18 05/19/18 14:00 - Physical Examination General: No Apparent Distress HEENT: Positive: PERRL Neck: Positive: neck supple Cardiac: Positive: Reg Rate and Rhythm Lungs: Positive: Decreased Breath Sounds Neuro: Positive: Grossly Intact Abdomen: Positive: Soft Skin: Positive: Clear Extremities: Absent: edema - Labs and Meds CBC 05/20/18 Range/Units 03:46 WBC 9.2 (4.5-11.0) K/mm3 RBC 4.53 (3.65-5.03) M/mm3 Hgb 15.7 H (11.8-15.2) gm/dl Hct 46.9 H D (35.5-45.6) % Plt Count 243 (140-440) K/mm3 Lymph # 0.8 L (1.2-5.4) K/mm3 [place] # 1.0 H (0.0-0.8) K/mm3 Eos # 0.1 (0.0-0.4) K/mm3 Baso # 0.0 (0.0-0.1) K/mm3 Comprehensive Metabolic Panel 05/20/18 Range/Units 03:46 Sodium 132 L D (137-145) mmol/L Potassium 3.9 (3.6-5.0) mmol/L Chloride 88.2 L (98-107) mmol/L Carbon Dioxide 29 (22-30) mmol/L BUN 29 H (9-20) mg/dL Creatinine 1.4 (0.8-1.5) mg/dL Glucose 121 H (75-100) mg/dL Calcium 10.0 D (8.4-10.2) mg/dL
[2018-05-21] MEDS: DUONEB *Not for PRN Use IH SCH ×4 (02:04→19:04)
[2018-05-21 06:05] LABS: BUN/Creatinine Ratio 24; Blood Urea Nitrogen 33 mg/dL (9-20); Calcium 9.4 mg/dL (8.4-10.2); Hemolysis Index 10
[2018-05-21] MEDS: LASIX IV SCH (06:41)
[2018-05-21] MEDS: NITRO DUR TD SCH (06:42)
[2018-05-21] MEDS: KEPPRA PO SCH ×2 (09:16→21:15)
[2018-05-21] MEDS: CORDARONE PO SCH (09:17)
[2018-05-21] MEDS: TRILEPTAL PO SCH ×2 (09:17→21:15)
[2018-05-21] MEDS: ELIQUIS PO SCH ×2 (09:17→21:15)
[2018-05-21] MEDS: HALFPRIN EC PO SCH (09:18)
[2018-05-21] MEDS: LOPRESSOR PO SCH ×2 (09:18→21:15)
[2018-05-21] MEDS: ZESTRIL PO SCH (09:19)
[2018-05-21] MEDS: SODIUM CHLORIDE FLUSH SYRINGE 10 ML IV SCH ×2 (09:19→21:16)
--- NOTE | 2018-05-21 11:14 | Progress Note ---
Addendum entered and electronically signed by TEE PALMA MD 05/21/18 14:32: Medical therapy for coronary artery disease, ischemic cardiomyopathy and chronic systolic heart failure. Original Note: Assessment and Plan Pneumonia Acute on chronic systolic heart failure Ischemic cardiomyopathy, EF 15% Paroxysmal atrial fibrillation/atrial flutter on eliquis for oral anticoagulation and amiodarone for suppression Hx of CAD with prior CABG Presence of AICD Hx of Seizure disorder Hx of CVA Recommend: Continue medical therapy for ischemic cardiomyopathy, coronary artery disease and paroxysmal Afib. Stable cardiac james. Subjective Date of service: 05/21/18 Interval history: No cardiac complaints. Objective Vital Signs Temp Pulse Pulse Pulse Resp Resp BP 05/21/18 09:19 99 H 105/70 05/21/18 09:18 99 H 105/70 05/21/18 08:10 99 H 18 05/21/18 07:52 99 H 18 05/21/18 06:42 97/70 05/21/18 06:00 87 05/21/18 04:31 98.3 F 103 H 18 97/70 05/21/18 01:24 106 H 20 05/20/18 23:44 98.4 F 85 18 117/82 05/20/18 22:06 107 H 111/66 05/20/18 22:00 106 H 05/20/18 20:05 98 H 16 05/20/18 19:51 107 H 16 05/20/18 19:31 98.4 F 107 H 18 111/66 05/20/18 16:41 128/55 05/20/18 14:00 149 H 05/20/18 13:36 83 19 05/20/18 11:47 93 H 154/82 Pulse Ox 05/21/18 09:19 05/21/18 09:18 05/21/18 08:10 05/21/18 07:52 05/21/18 06:42 05/21/18 06:00 05/21/18 04:31 92 05/21/18 01:24 98 05/20/18 23:44 93 05/20/18 22:06 05/20/18 22:00 05/20/18 20:05 05/20/18 19:51 05/20/18 19:31 79 L 05/20/18 16:41 05/20/18 14:00 05/20/18 13:36 05/20/18 11:47 92 - Physical Examination General: No Apparent Distress HEENT: Positive: PERRL Neck: Positive: trachea midline Cardiac: Positive: Other (paced) Lungs: Positive: Decreased Breath Sounds Neuro: Positive: Grossly Intact Extremities: Absent: edema - Labs and Meds Comprehensive Metabolic Panel 05/21/18 Range/Units 04:52 Sodium 132 L (137-145) mmol/L Potassium 3.4 L (3.6-5.0) mmol/L Chloride 87.7 L (98-107) mmol/L Carbon Dioxide 28 (22-30) mmol/L BUN 33 H (9-20) mg/dL Creatinine 1.4 (0.8-1.5) mg/dL Glucose 125 H (75-100) mg/dL Calcium 9.4 (8.4-10.2) mg/dL
--- NOTE | 2018-05-21 19:52 | Progress Note ---
Assessment and Plan Assessment and plan: 67-year-old male patient with multiple medical problems including ischemic cardiomyopathy and reactive disease status post CABG and AICD, CVA with residual weakness, was admitted through emergency room with worsening shortness of breath acute on chronic congestive heart failure Patient is followed by cardiology medications were optimized Patient also has right-sided pneumonia, being treated appropriately with antibiotics with significant improvement, Patient complains of generalized weakness dizziness and unsteady gait, PT evaluation requested, Possible discharge in 1-2 days with home health and home PT if stable --Right-sided pneumonia; community-acquired Oxygen titrate to O2 sats more than 90%, antibiotics, cultures negative to date, mild improvement --Positive cardiac enzymes; secondary to acute on chronic CHF Medications optimized --History of AICD; stable --History of CVA with residual weakness; supportive care Complaints of unsteady gait and dizziness, Follow-up PT evaluation and recommendations Possible home health with home PT upon discharge --Acute on chronic systolic congestive heart failure; LVEF 15% on anti-failure medications, symptoms slightly improved Cardiology following --History of coronary artery disease status post CABG; continue Current cardiac medications --Paroxysmal A. fib/flutter; rate controlled ,on amiodarone and chr.anticoagulation Eliquis --History of seizure disorder; seizure precautions Antiepileptic medications --DVT prophylaxis; patient is already on Eliquis Physical therapy evaluation for home PT DC tomorrow with home health services if stable Resting and ambulatory room air oxygen more than 97% No indication for home oxygen at discharge Disposition; follow up with evaluation and recommendations Possible discharge in 1-2 days with home health/PT if stable History Interval history: Patient seen and examined medical records reviewed No new events reported by the nursing staff Patient complains of dizziness, and unsteady gait Last night patient was confused requiring restraints Alert awake, not in acute distress Vital signs reviewed Hospitalist Physical - Constitutional Vitals: Temp Pulse Resp BP Pulse Ox 98.3 F 96 H 18 139/78 95 05/21/18 08:58 05/21/18 19:05 05/21/18 19:05 05/21/18 16:39 05/21/18 16:39 General appearance: Present: no acute distress, well-nourished - EENT Eyes: Present: PERRL, EOM intact - Neck Neck: Present: supple, normal ROM - Respiratory Respiratory effort: normal Respiratory: bilateral: diminished, negative: rales, rhonchi, wheezing - Cardiovascular Rhythm: regular Heart Sounds: Present: S1 & S2 - Extremities Extremities: no ischemia, No edema - Abdominal General gastrointestinal: soft, non-tender, non-distended, normal bowel sounds - Integumentary Integumentary: Present: clear, warm - Psychiatric Psychiatric: appropriate mood/affect, cooperative - Neurologic Neurologic: moves all extremities, other (history of CVA with residual weakness) Results - Labs CBC & Chem 7: 05/20/18 03:46 05/21/18 04:52 Labs: Laboratory Last Values WBC 9.2 K/mm3 (4.5-11.0) 05/20/18 03:46 RBC 4.53 M/mm3 (3.65-5.03) 05/20/18 03:46 Hgb 15.7 gm/dl (11.8-15.2) H 05/20/18 03:46 Hct 46.9 % (35.5-45.6) H D 05/20/18 03:46 MCV 103 fl (84-94) H 05/20/18 03:46 MCH 35 pg (28-32) H 05/20/18 03:46 MCHC 33 % (32-34) 05/20/18 03:46 RDW 15.5 % (13.2-15.2) H 05/20/18 03:46 Plt Count 243 K/mm3 (140-440) 05/20/18 03:46 Lymph % (Auto) 9.2 % (13.4-35.0) L 05/20/18 03:46 [place] % (Auto) 10.4 % (0.0-7.3) H 05/20/18 03:46 Eos % (Auto) 0.8 % (0.0-4.3) 05/20/18 03:46 Baso % (Auto) 0.5 % (0.0-1.8) 05/20/18 03:46 Lymph # 0.8 K/mm3 (1.2-5.4) L 05/20/18 03:46 [place] # 1.0 K/mm3 (0.0-0.8) H 05/20/18 03:46 Eos # 0.1 K/mm3 (0.0-0.4) 05/20/18 03:46 Baso # 0.0 K/mm3 (0.0-0.1) 05/20/18 03:46 Seg Neutrophils % 79.1 % (40.0-70.0) H 05/20/18 03:46 Seg Neutrophils # 7.3 K/mm3 (1.8-7.7) 05/20/18 03:46 Sodium 132 mmol/L (137-145) L 05/21/18 04:52 Potassium 3.4 mmol/L (3.6-5.0) L 05/21/18 04:52 Chloride 87.7 mmol/L (98-107) L 05/21/18 04:52 Carbon Dioxide 28 mmol/L (22-30) 05/21/18 04:52 Anion Gap 20 mmol/L 05/21/18 04:52 BUN 33 mg/dL (9-20) H 05/21/18 04:52 Creatinine 1.4 mg/dL (0.8-1.5) 05/21/18 04:52 Estimated GFR > 60 ml/min 05/21/18 04:52 BUN/Creatinine Ratio 24 % 05/21/18 04:52 Glucose 125 mg/dL (75-100) H 05/21/18 04:52 POC Glucose 106 (70-105) H 05/21/18 16:44 Lactic Acid 1.70 mmol/L (0.7-2.0) 05/17/18 04:30 Calcium 9.4 mg/dL (8.4-10.2) 05/21/18 04:52 Magnesium 1.90 mg/dL (1.7-2.3) 05/18/18 03:46 Total Creatine Kinase 161 units/L (55-170) 05/17/18 02:52 Troponin T 0.057 ng/mL (0.00-0.029) H 05/18/18 11:39 NT-Pro-B Natriuret Pep 1738 pg/mL (0-900) H 05/17/18 02:52 Triglycerides 53 mg/dL (2-149) 05/17/18 02:52 Cholesterol 119 mg/dL (50-199) 05/17/18 02:52 LDL Cholesterol Direct 77 mg/dL (50-130) 05/17/18 02:52 HDL Cholesterol 46 mg/dL (40-59) 05/17/18 02:52 Cholesterol/HDL Ratio 2.58 % 05/17/18 02:52
[2018-05-21] MEDS ORDERED: K-DUR PO ONE (20:57)
[2018-05-21] MEDS: VIBRAMYCIN PO SCH (21:15)
[2018-05-22] MEDS: DUONEB *Not for PRN Use IH SCH ×4 (02:27→19:41)
[2018-05-22] MEDS: LASIX IV SCH (06:07)
[2018-05-22 06:36] LABS: Calcium 9.4 mg/dL (8.4-10.2)
[2018-05-22] MEDS: NITRO DUR TD SCH (06:38)
[2018-05-22] MEDS: HALFPRIN EC PO SCH (09:56)
[2018-05-22] MEDS: LOPRESSOR PO SCH ×2 (09:56→22:00)
[2018-05-22] MEDS: KEPPRA PO SCH ×2 (09:57→22:12)
[2018-05-22] MEDS: TRILEPTAL PO SCH ×2 (09:57→22:12)
[2018-05-22] MEDS: ELIQUIS PO SCH ×2 (09:58→22:12)
[2018-05-22] MEDS: VIBRAMYCIN PO SCH ×2 (09:58→22:12)
[2018-05-22] MEDS: ZESTRIL PO SCH (09:58)
[2018-05-22] MEDS: CORDARONE PO SCH (09:59)
[2018-05-22] MEDS: SODIUM CHLORIDE FLUSH SYRINGE 10 ML IV SCH ×2 (09:59→22:13)
--- NOTE | 2018-05-22 10:51 | Cat Scan Report ---
CT HEAD WITHOUT CONTRAST: HISTORY: Head trauma. TECHNIQUE: Sequential CT images without contrast. FINDINGS: Compared to 09/13/17. Moderate diffuse volume loss and chronic white matter changes are again noted. Moderate to large chronic infarct in the right MCA distribution is stable. No evidence for hemorrhage, mass, extra-axial fluid collection or large area of acute ischemia. Ventricular size is stable and within normal limits. No acute calvarial fracture. IMPRESSION: No acute intracranial process. Volume loss. Chronic right MCA infarct. Chronic white matter changes.
--- NOTE | 2018-05-22 12:15 | Progress Note ---
Assessment and Plan - Patient Problems (1) CHF (congestive heart failure) Current Visit: Yes Status: Acute Plan to address problem: Continue medical therapy for coronary artery disease and ischemic cardiomyopathy. Subjective Date of service: 05/22/18 Interval history: The patient is comfortable, no chest pain, no shortness of breath, looks and feels better. Objective Vital Signs Temp Pulse Pulse Pulse Pulse Pulse Pulse 05/22/18 10:00 91 H 91 H 91 H 05/22/18 09:58 133 H 05/22/18 09:56 133 H 05/22/18 09:20 05/22/18 09:00 91 H 05/22/18 08:00 68 62 05/22/18 04:11 98.4 F 41 L 05/21/18 23:48 98.2 F 134 H 05/21/18 23:14 143 H 05/21/18 20:14 97.9 F 142 H 05/21/18 19:05 96 H 05/21/18 16:39 91 H 05/21/18 14:00 82 05/21/18 13:52 95 H 05/21/18 13:39 104 H Resp Resp Resp BP BP Pulse Ox 05/22/18 10:00 19 97 05/22/18 09:58 127/44 05/22/18 09:56 127/44 05/22/18 09:20 100 05/22/18 09:00 19 149/87 2 L 05/22/18 08:00 18 18 05/22/18 04:11 18 116/51 96 05/21/18 23:48 18 141/88 100 05/21/18 23:14 20 98 05/21/18 20:14 18 140/110 96 05/21/18 19:05 18 05/21/18 16:39 139/78 95 05/21/18 14:00 05/21/18 13:52 18 05/21/18 13:39 18 - Physical Examination General: No Apparent Distress HEENT: Positive: PERRL Neck: Positive: trachea midline Cardiac: Positive: Reg Rate and Rhythm Lungs: Positive: Decreased Breath Sounds Neuro: Positive: Grossly Intact Abdomen: Positive: Soft Skin: Positive: Clear Extremities: Absent: edema - Labs and Meds Comprehensive Metabolic Panel 05/22/18 Range/Units 05:01 Sodium 135 L (137-145) mmol/L Potassium 3.7 (3.6-5.0) mmol/L Chloride 91.3 L (98-107) mmol/L Carbon Dioxide 29 (22-30) mmol/L BUN 41 H (9-20) mg/dL Creatinine 1.6 H (0.8-1.5) mg/dL Glucose 124 H (75-100) mg/dL Calcium 9.4 (8.4-10.2) mg/dL
--- NOTE | 2018-05-22 16:07 | Progress Note ---
Assessment and Plan Assessment and plan: Patient is 67 yo man with multiple medical problems including ischemic cardiomyopathy and reactive disease status post CABG and AICD, CVA with residual weakness, was admitted through emergency room with worsening shortness of breath acute on chronic congestive heart failure Patient is followed by cardiology medications were optimized. Patient also has right-sided pneumonia, being treated appropriately with antibiotics with significant improvement, Patient complains of generalized weakness dizziness and unsteady gait, PT evaluation requested, --Right-sided pneumonia; community-acquired Oxygen titrate to O2 sats more than 90%, antibiotics, cultures negative to date, mild improvement --Positive cardiac enzymes; secondary to acute on chronic CHF Medications optimized --History of AICD; stable --History of CVA with residual weakness; supportive care Complaints of unsteady gait and dizziness, Follow-up PT evaluation and recommendations Possible home health with home PT upon discharge --Acute on chronic systolic congestive heart failure; LVEF 15% on anti-failure medications, symptoms slightly improved Cardiology following --History of coronary artery disease status post CABG; continue Current cardiac medications --Paroxysmal A. fib/flutter; rate controlled ,on amiodarone and chr.anticoagulation Eliquis --History of seizure disorder; seizure precautions Antiepileptic medications --DVT prophylaxis; patient is already on Eliquis Physical therapy evaluation for home PT DC tomorrow with home health services if stable Resting and ambulatory room air oxygen more than 97% No indication for home oxygen at discharge Disposition; follow up with evaluation and recommendations Patient fell and hit his head, pt states his legs gave away. CT negative for acute intracranial process. Ordered neurochecks, pt on Eliquis so monitor 24 hours History Interval history: Patient was seen and examined. Follow-up on current diagnosis of SOB. Overnight uneventful. Patient denies any chest pain, shortness breath, nausea/vomiting or severe headaches. Imaging, nursing note, chart, labs and old chart reviewed. Discussed with patient. Hospitalist Physical - Physical exam Narrative exam: Gen: WDWN, NAD, Awake, Alert, Orientated HEENT: NCAT, EOMI, PERRL, OP Clear Neck: supple, no adenopathy, no thyromegaly, no JVD CVS/Heart: irregular irregular, normal S1S2, pulses present bilaterally Chest/Lungs: CTA B, Symmetrical chest expansion, good air entry bilaterally GI/Abdomen: soft, NTND, good bowel sounds, no guarding or rebound /Bladder: no suprapubic tenderness, no CVA or paraspinal tenderness Extermity/Skin: no c/c/e, no obvious rash MSK: FROM x 4 Neuro: CN 2-12 grossly intact, no new focal deficits Psych: calm - Constitutional Vitals: Temp Pulse Resp BP Pulse Ox 98.4 F 74 18 127/44 97 05/22/18 04:11 05/22/18 14:16 05/22/18 14:16 05/22/18 09:58 05/22/18 10:00 General appearance: Present: no acute distress, well-nourished Results - Labs CBC & Chem 7: 05/20/18 03:46 05/22/18 05:01 Labs: Laboratory Last Values WBC 9.2 K/mm3 (4.5-11.0) 05/20/18 03:46 RBC 4.53 M/mm3 (3.65-5.03) 05/20/18 03:46 Hgb 15.7 gm/dl (11.8-15.2) H 05/20/18 03:46 Hct 46.9 % (35.5-45.6) H D 05/20/18 03:46 MCV 103 fl (84-94) H 05/20/18 03:46 MCH 35 pg (28-32) H 05/20/18 03:46 MCHC 33 % (32-34) 05/20/18 03:46 RDW 15.5 % (13.2-15.2) H 05/20/18 03:46 Plt Count 243 K/mm3 (140-440) 05/20/18 03:46 Lymph % (Auto) 9.2 % (13.4-35.0) L 05/20/18 03:46 [place] % (Auto) 10.4 % (0.0-7.3) H 05/20/18 03:46 Eos % (Auto) 0.8 % (0.0-4.3) 05/20/18 03:46 Baso % (Auto) 0.5 % (0.0-1.8) 05/20/18 03:46 Lymph # 0.8 K/mm3 (1.2-5.4) L 05/20/18 03:46 [place] # 1.0 K/mm3 (0.0-0.8) H 05/20/18 03:46 Eos # 0.1 K/mm3 (0.0-0.4) 05/20/18 03:46 Baso # 0.0 K/mm3 (0.0-0.1) 05/20/18 03:46 Seg Neutrophils % 79.1 % (40.0-70.0) H 05/20/18 03:46 Seg Neutrophils # 7.3 K/mm3 (1.8-7.7) 05/20/18 03:46 Sodium 135 mmol/L (137-145) L 05/22/18 05:01 Potassium 3.7 mmol/L (3.6-5.0) 05/22/18 05:01 Chloride 91.3 mmol/L (98-107) L 05/22/18 05:01 Carbon Dioxide 29 mmol/L (22-30) 05/22/18 05:01 Anion Gap 18 mmol/L 05/22/18 05:01 BUN 41 mg/dL (9-20) H 05/22/18 05:01 Creatinine 1.6 mg/dL (0.8-1.5) H 05/22/18 05:01 Estimated GFR 53 ml/min 05/22/18 05:01 BUN/Creatinine Ratio 26 % 05/22/18 05:01 Glucose 124 mg/dL (75-100) H 05/22/18 05:01 POC Glucose 134 (70-105) H 05/22/18 11:36 Lactic Acid 1.70 mmol/L (0.7-2.0) 05/17/18 04:30 Calcium 9.4 mg/dL (8.4-10.2) 05/22/18 05:01 Magnesium 1.90 mg/dL (1.7-2.3) 05/18/18 03:46 Total Creatine Kinase 161 units/L (55-170) 05/17/18 02:52 Troponin T 0.057 ng/mL (0.00-0.029) H 05/18/18 11:39 NT-Pro-B Natriuret Pep 1738 pg/mL (0-900) H 05/17/18 02:52 Triglycerides 53 mg/dL (2-149) 05/17/18 02:52 Cholesterol 119 mg/dL (50-199) 05/17/18 02:52 LDL Cholesterol Direct 77 mg/dL (50-130) 05/17/18 02:52 HDL Cholesterol 46 mg/dL (40-59) 05/17/18 02:52 Cholesterol/HDL Ratio 2.58 % 05/17/18 02:52
[2018-05-23] MEDS: LASIX IV SCH (06:18)
[2018-05-23] MEDS: NITRO DUR TD SCH (06:52)
[2018-05-23] MEDS: DUONEB *Not for PRN Use IH SCH ×3 (07:36→20:41)
[2018-05-23] MEDS: ZESTRIL PO SCH (09:00)
--- NOTE | 2018-05-23 09:38 | Progress Note ---
Addendum entered and electronically signed by KATH MIRELES MD 05/23/18 10:13: Change lasix to po Change metoprolol to toprol XL Original Note: Assessment and Plan Pneumonia Acute on chronic systolic heart failure Ischemic cardiomyopathy, EF 15% Paroxysmal atrial fibrillation/atrial flutter on eliquis for oral anticoagulation on metoprolol and amiodarone for suppression Hx of CAD with prior CABG Presence of AICD Hx of Seizure disorder Hx of CVA Recommend: Continue medical therapy for ischemic cardiomyopathy, coronary artery disease and paroxysmal Afib. Stable cardiac james. Subjective Date of service: 05/23/18 Interval history: Patient has no complaints. Family member is at the bedside. Objective Vital Signs Temp Pulse Pulse Pulse Pulse Pulse Pulse 05/23/18 08:57 05/23/18 07:46 82 05/23/18 07:36 79 05/23/18 06:00 137 H 05/23/18 05:09 98.3 F 80 05/23/18 01:11 05/23/18 00:46 97.3 F L 137 H 05/22/18 22:00 140 H 139 H 05/22/18 20:07 98.7 F 140 H 05/22/18 19:51 75 05/22/18 19:43 05/22/18 19:41 70 05/22/18 18:12 98.1 F 141 H 05/22/18 14:16 74 67 05/22/18 14:00 142 H 05/22/18 13:08 97.3 F L 135 H 05/22/18 10:00 91 H 91 H 91 H 05/22/18 09:58 133 H 05/22/18 09:56 133 H 05/22/18 09:54 139 H Resp Resp Resp BP Pulse Ox 05/23/18 08:57 95 05/23/18 07:46 18 05/23/18 07:36 18 05/23/18 06:00 05/23/18 05:09 18 91/56 95 05/23/18 01:11 97 05/23/18 00:46 17 92/62 100 05/22/18 22:00 20 97/67 98 05/22/18 20:07 17 97/67 97 05/22/18 19:51 18 05/22/18 19:43 100 05/22/18 19:41 18 05/22/18 18:12 18 113/78 96 05/22/18 14:16 18 18 05/22/18 14:00 05/22/18 13:08 18 151/101 95 05/22/18 10:00 19 97 05/22/18 09:58 127/44 05/22/18 09:56 127/44 05/22/18 09:54 127/74 97 - Physical Examination General: No Apparent Distress HEENT: Positive: PERRL Neck: Positive: trachea midline Cardiac: Positive: irregularly irregular Lungs: Positive: Decreased Breath Sounds Neuro: Positive: Grossly Intact Extremities: Absent: edema
[2018-05-23 09:52] VITALS: BP 106/62
[2018-05-23] MEDS ORDERED: NACL 0.9% 1000 ML ONE (10:09)
[2018-05-23] MEDS: ELIQUIS PO SCH (10:31)
[2018-05-23] MEDS: VIBRAMYCIN PO SCH (10:31)
[2018-05-23] MEDS: CORDARONE PO SCH (10:31)
[2018-05-23] MEDS: HALFPRIN EC PO SCH (10:31)
[2018-05-23] MEDS: KEPPRA PO SCH (10:32)
[2018-05-23] MEDS: TRILEPTAL PO SCH (10:32)
[2018-05-23] MEDS: SODIUM CHLORIDE FLUSH SYRINGE 10 ML IV SCH (10:33)
[2018-05-23] MEDS: LOPRESSOR PO SCH (12:46)
[2018-05-23] MEDS ORDERED: ATIVAN IV PRN (17:39)
--- NOTE | 2018-05-23 17:57 | Progress Note ---
Assessment and Plan Assessment and plan: Patient is 67 yo man with multiple medical problems including ischemic cardiomyopathy, CAD status post CABG, AICD, CVA with residual weakness and Seizure disorder who presented to [facility] ED with SOB. AMS, acute encephalopathy: consult Neurology suspect post icteral encephalopathy Acute on chronic seizure disorder; seizure precautions, on keppra and trileptal, added IV ativan prn breakthrough seizures Acute on chronic systolic congestive heart failure; LVEF 15%, treat with anti- failure medications, symptoms slightly improved, Cardiology following SAKINA, vasomotor nephropathy: change diuretics, repeat and monitor closely Right-sided pneumonia; community-acquired Oxygen titrate to O2 sats more than 90%, treat with antibiotics, cultures negative to date, Positive cardiac enzymes; secondary to acute on chronic CHF Medications optimized History of AICD; stable History of CVA with residual weakness; supportive care History of coronary artery disease status post CABG; continue Paroxysmal A. fib/flutter; rate controlled ,on amiodarone and Eliquis In hospital fall on 05/22/18, CT head negative: PT/OT and restraints History Interval history: Patient was seen and examined. Follow-up on current diagnosis of SOB. Overnight uneventful. Patient is confused. Imaging, nursing note, chart, labs and old chart reviewed. Discussed with patient and Daughter Mayur Martinez at bedside. Her phone number is [phone]. She mentions that her father has seizure disorder Hospitalist Physical - Physical exam Narrative exam: Gen: ill appearing, letharic and confused, orientated x 1 HEENT: NCAT, EOMI, PERRL, OP Clear Neck: supple, no adenopathy, no thyromegaly, no JVD CVS/Heart: irregular irregular, normal S1S2, pulses present bilaterally Chest/Lungs: CTA B, Symmetrical chest expansion, good air entry bilaterally GI/Abdomen: soft, NTND, good bowel sounds, no guarding or rebound /Bladder: no suprapubic tenderness, no CVA or paraspinal tenderness Extermity/Skin: no c/c/e, no obvious rash MSK: spontaneous movement Neuro: CN 2-12 grossly intact, doesn't follow commands Psych: calm - Constitutional Vitals: Temp Pulse Resp BP Pulse Ox 97.3 F L 82 18 106/62 95 05/23/18 08:24 05/23/18 15:01 05/23/18 15:01 05/23/18 08:24 05/23/18 08:57 General appearance: Present: no acute distress, well-nourished Results - Labs CBC & Chem 7: 05/20/18 03:46 05/22/18 05:01 Labs: Laboratory Last Values WBC 9.2 K/mm3 (4.5-11.0) 05/20/18 03:46 RBC 4.53 M/mm3 (3.65-5.03) 05/20/18 03:46 Hgb 15.7 gm/dl (11.8-15.2) H 05/20/18 03:46 Hct 46.9 % (35.5-45.6) H D 05/20/18 03:46 MCV 103 fl (84-94) H 05/20/18 03:46 MCH 35 pg (28-32) H 05/20/18 03:46 MCHC 33 % (32-34) 05/20/18 03:46 RDW 15.5 % (13.2-15.2) H 05/20/18 03:46 Plt Count 243 K/mm3 (140-440) 05/20/18 03:46 Lymph % (Auto) 9.2 % (13.4-35.0) L 05/20/18 03:46 [place] % (Auto) 10.4 % (0.0-7.3) H 05/20/18 03:46 Eos % (Auto) 0.8 % (0.0-4.3) 05/20/18 03:46 Baso % (Auto) 0.5 % (0.0-1.8) 05/20/18 03:46 Lymph # 0.8 K/mm3 (1.2-5.4) L 05/20/18 03:46 [place] # 1.0 K/mm3 (0.0-0.8) H 05/20/18 03:46 Eos # 0.1 K/mm3 (0.0-0.4) 05/20/18 03:46 Baso # 0.0 K/mm3 (0.0-0.1) 05/20/18 03:46 Seg Neutrophils % 79.1 % (40.0-70.0) H 05/20/18 03:46 Seg Neutrophils # 7.3 K/mm3 (1.8-7.7) 05/20/18 03:46 Sodium 135 mmol/L (137-145) L 05/22/18 05:01 Potassium 3.7 mmol/L (3.6-5.0) 05/22/18 05:01 Chloride 91.3 mmol/L (98-107) L 05/22/18 05:01 Carbon Dioxide 29 mmol/L (22-30) 05/22/18 05:01 Anion Gap 18 mmol/L 05/22/18 05:01 BUN 41 mg/dL (9-20) H 05/22/18 05:01 Creatinine 1.6 mg/dL (0.8-1.5) H 05/22/18 05:01 Estimated GFR 53 ml/min 05/22/18 05:01 BUN/Creatinine Ratio 26 % 05/22/18 05:01 Glucose 124 mg/dL (75-100) H 05/22/18 05:01 POC Glucose 141 (70-105) H 05/23/18 11:01 Lactic Acid 1.70 mmol/L (0.7-2.0) 05/17/18 04:30 Calcium 9.4 mg/dL (8.4-10.2) 05/22/18 05:01 Magnesium 1.90 mg/dL (1.7-2.3) 05/18/18 03:46 Total Creatine Kinase 161 units/L (55-170) 05/17/18 02:52 Troponin T 0.057 ng/mL (0.00-0.029) H 05/18/18 11:39 NT-Pro-B Natriuret Pep 1738 pg/mL (0-900) H 05/17/18 02:52 Triglycerides 53 mg/dL (2-149) 05/17/18 02:52 Cholesterol 119 mg/dL (50-199) 05/17/18 02:52 LDL Cholesterol Direct 77 mg/dL (50-130) 05/17/18 02:52 HDL Cholesterol 46 mg/dL (40-59) 05/17/18 02:52 Cholesterol/HDL Ratio 2.58 % 05/17/18 02:52
--- NOTE | 2018-05-23 18:02 | Consultation ---
History of Present Illness Consult date: 05/23/18 Chief complaint: AMs, h/o seizure History of present illness: This is a 67 YO M adm 05/17 for SOB, found to have pneumonia and is being treated. ATSP for AMS and seizure. On my arrival pt is altered/sleeping? He arouses to my voice briefly but will not follow any commands. Sounds gurgly with breathing. Past History Past Medical History: CAD, COPD, heart failure, hypertension, hyperlipidemia, liver disease Past Surgical History: CABG, bowel surgery, Other (rt wrist) Social history: single, Lives alone, smoking (1 pack a day until 6 weeks ago), a lcohol abuse (with the 2007) Family history: no significant family history Medications and Allergies Allergies Allergy/AdvReac Type Severity Reaction Status Date / Time No Known Allergies Allergy Verified 09/04/17 14:17 Home Medications Medication Instructions Recorded Confirmed Last Taken Type Metoprolol [Lopressor TAB] 25 mg PO BID 06/09/14 05/19/18 05/09/15 21:00 History Apixaban [Eliquis] 5 mg PO BID #60 tablet 05/10/15 05/19/18 03/31/17 Rx levETIRAcetam [Keppra TAB] 2,000 mg PO BID #60 tablet 05/10/15 05/19/18 03/31/17 Rx Amiodarone [Cordarone 200 MG TAB] 200 mg PO QDAY 03/31/17 05/19/18 Unknown History ISOSORBIDE MONOnitrate [Imdur ER] 30 mg PO QDAY 03/31/17 05/19/18 03/31/17 History Lisinopril [Zestril TAB] 2.5 mg PO QDAY 03/31/17 05/19/18 03/31/17 History Aspirin [Lo-Dose Aspirin EC] 81 mg PO DAILY 09/13/17 05/19/18 Unknown History OXcarbazepine [Trileptal] 1,200 mg PO BID 09/13/17 05/19/18 Unknown History Atorvastatin [Lipitor] 40 mg PO DAILY #30 tablet 09/19/17 05/19/18 Unknown Rx Furosemide [Lasix] 20 mg PO QDAY #14 tablet 10/09/17 05/19/18 Unknown Rx Furosemide [Lasix] 20 mg PO QDAY #14 tablet 10/09/17 05/19/18 Unknown Rx Active Meds: Active Medications Acetaminophen (Tylenol) 650 mg PO Q4H PRN PRN Reason: Pain MILD(1-3)/Fever >100.5/WARE Albuterol/Ipratropium (Duoneb *Not For Prn Use*) 1 ampul IH TIDRT [facility] Last Admin: 05/23/18 14:51 Dose: 1 ampul Documented by: Amiodarone HCl (Cordarone) 200 mg PO QDAY [facility] Last Admin: 05/23/18 10:31 Dose: 200 mg Documented by: Apixaban (Eliquis) 5 mg PO BID [facility]; Protocol Last Admin: 05/23/18 10:31 Dose: 5 mg Documented by: Aspirin (Halfprin Ec) 81 mg PO DAILY [facility] Last Admin: 05/23/18 10:31 Dose: 81 mg Documented by: Atorvastatin Calcium (Lipitor) 40 mg PO DAILY [facility] Last Admin: 05/23/18 10:31 Dose: 40 mg Documented by: Doxycycline Hyclate (Vibramycin) 100 mg PO BID [facility] Last Admin: 05/23/18 10:31 Dose: 100 mg Documented by: Levetiracetam (Keppra) 1,000 mg PO BID [facility] Last Admin: 05/23/18 10:32 Dose: 1,000 mg Documented by: Lisinopril (Zestril) 2.5 mg PO QDAY [facility] Last Admin: 05/23/18 09:00 Dose: Not Given Documented by: Lorazepam (Ativan) 1 mg IV Q4H PRN PRN Reason: Seizures Metoprolol Succinate (Toprol Xl) 50 mg PO QDAY [facility] Nitroglycerin (Nitro Dur) 0.4 mg TD QDAY@0600 [facility] Last Admin: 05/23/18 06:52 Dose: Not Given Documented by: Ondansetron HCl (Zofran) 4 mg IV Q8H PRN PRN Reason: Nausea And Vomiting Oxcarbazepine (Trileptal) 1,200 mg PO BID [facility] Last Admin: 05/23/18 10:32 Dose: 1,200 mg Documented by: Sodium Chloride (Sodium Chloride Flush Syringe 10 Ml) 10 ml IV BID [facility] Last Admin: 05/23/18 10:33 Dose: 10 ml Documented by: Sodium Chloride (Sodium Chloride Flush Syringe 10 Ml) 10 ml IV PRN PRN PRN Reason: LINE FLUSH Review of Systems ROS unobtainable: due to mental status Physical Examination - Vital Signs Vital Signs: Vital Signs Pulse Ox 95 05/17/18 02:36 - Respiratory Respiratory: Present: lungs clear, crackles - Cardiovascular Cardiovascular: Present: regular rate - Neurologic Cranial nerve examination: PERRL, EOMI, V1/V2/V3 grossly intact, face symmetric Detailed motor examination: grossly full strength in Reflexes: 1+: ankle, bicep, knee, tricep - Psychiatric Psychiatric: Present: other (encephalopathic) Results - Laboratory Findings CBC and BMP: 05/20/18 03:46 05/22/18 05:01 Abnormal Lab Findings: Abnormal Labs 05/17/18 05/17/18 05/17/18 02:52 02:52 02:52 Hgb Hct MCV 103 H MCH 35 H RDW 15.4 H Lymph % (Auto) 12.1 L [place] % (Auto) 8.3 H Lymph # 0.9 L [place] # Seg Neutrophils % 78.3 H Sodium Potassium Chloride BUN Creatinine Glucose 119 H POC Glucose Troponin T NT-Pro-B Natriuret Pep 1738 H 05/17/18 05/17/18 05/17/18 02:52 11:46 21:30 Hgb Hct MCV MCH RDW Lymph % (Auto) [place] % (Auto) Lymph # [place] # Seg Neutrophils % Sodium Potassium Chloride BUN Creatinine Glucose POC Glucose 111 H 115 H Troponin T 0.060 H NT-Pro-B Natriuret Pep 05/18/18 05/18/18 05/18/18 03:46 03:46 05:42 Hgb Hct MCV 103 H MCH 35 H RDW 15.8 H Lymph % (Auto) [place] % (Auto) 11.3 H Lymph # 1.1 L [place] # Seg Neutrophils % Sodium Potassium 3.5 L Chloride BUN Creatinine Glucose 101 H POC Glucose 118 H Troponin T NT-Pro-B Natriuret Pep 05/18/18 05/18/18 05/18/18 11:39 17:05 20:38 Hgb Hct MCV MCH RDW Lymph % (Auto) [place] % (Auto) Lymph # [place] # Seg Neutrophils % Sodium Potassium Chloride BUN Creatinine Glucose POC Glucose 110 H 141 H Troponin T 0.057 H NT-Pro-B Natriuret Pep 0105/19/18 05/20/18 11:34 20:58 03:46 Hgb 15.7 H Hct 46.9 H D MCV 103 H MCH 35 H RDW 15.5 H Lymph % (Auto) 9.2 L [place] % (Auto) 10.4 H Lymph # 0.8 L [place] # 1.0 H Seg Neutrophils % 79.1 H Sodium Potassium Chloride BUN Creatinine Glucose POC Glucose 109 H 113 H Troponin T NT-Pro-B Natriuret Pep 05/20/18 05/20/18 05/21/18 03:46 05:44 04:52 Hgb Hct MCV MCH RDW Lymph % (Auto) [place] % (Auto) Lymph # [place] # Seg Neutrophils % Sodium 132 L D 132 L Potassium 3.4 L Chloride 88.2 L 87.7 L BUN 29 H 33 H Creatinine Glucose 121 H 125 H POC Glucose 115 H Troponin T NT-Pro-B Natriuret Pep 05/21/18 05/21/18 05/22/18 12:45 16:44 05:01 Hgb Hct MCV MCH RDW Lymph % (Auto) [place] % (Auto) Lymph # [place] # Seg Neutrophils % Sodium 135 L Potassium Chloride 91.3 L BUN 41 H Creatinine 1.6 H Glucose 124 H POC Glucose 110 H 106 H Troponin T NT-Pro-B Natriuret Pep 05/22/18 05/22/18 05/22/18 11:36 16:56 21:29 Hgb Hct MCV MCH RDW Lymph % (Auto) [place] % (Auto) Lymph # [place] # Seg Neutrophils % Sodium Potassium Chloride BUN Creatinine Glucose POC Glucose 134 H 129 H 204 H Troponin T NT-Pro-B Natriuret Pep 05/23/18 11:01 Hgb Hct MCV MCH RDW Lymph % (Auto) [place] % (Auto) Lymph # [place] # Seg Neutrophils % Sodium Potassium Chloride BUN Creatinine Glucose POC Glucose 141 H Troponin T NT-Pro-B Natriuret Pep - Diagnostic Findings Additional findings: Ct head 05/22 with chronic RMCA infarct, microvascular changes, nothing acute Assessment and Plan This is a 67 YO M with likely metabolic encephalopathy from his current illness. Pt has a history of seizure and would like to rule out ongoing underlying seizures as well. Recommend: EEG MRI BRain to rule out new pathology that might be contributing to his symptoms ammonia, UA, TSH, B12 Avoid sedating medications when possible Continue care for all medical issues as you are doing Please call with questions.
[2018-05-23] MEDS ORDERED: ADRENALIN ONE (20:00)
--- NOTE | 2018-05-23 20:16 | Procedure Note ---
Date of procedure: 05/23/18 Pre-op diagnosis: cardiac arrest Post-op diagnosis: same Procedure: Patient is a 67-year-old male that a CODE BLUE was called on the floor. I responded to the CODE BLUE and Dr. Calderon was running the code. Patient needed in ET tube. ET tube was placed. See procedure note. Intubation procedure note: 8.0 ET tube placed 22 at the lip. Patient was intubated without any need for sedation. Patient was intubated without difficulty. Good color change with CO2 detector. And bilateral breath sounds. No breath sounds heard over the epigastrium. Intubation was done with a 40 Mac laryngoscope. Patient will have a chest x-ray. Care turned back over to the hospitalist. Anesthesia: none Estimated blood loss: none Pathology: none Condition: critical Disposition: ICU
--- NOTE | 2018-05-24 04:47 | Death Summary ---
Summary - Providers Date of service: 05/23/18 Consults: 05/17/18 05:40 Consult to Physician [CONS] Routine Comment: Consulting Provider: IMELDA GOMES Physician Instructions: Reason For Exam: CHF 05/20/18 15:09 Physical Therapy Evaluation and Treat [CONS] Routine Comment: Reason For Exam: unsteady gait/evalute for home PT 05/23/18 17:41 Consult to Physician [CONS] Routine Comment: Consulting Provider: RAMÓN BLOUNT Physician Instructions: Reason For Exam: Seizures and AMS 05/23/18 18:05 Consult to Physician [CONS] Routine Comment: Consulting Provider: LEN HELM Physician Instructions: Reason For Exam: ARF Attending: RUBEN QUINTERO - summary Date of admission: 05/17/18 05:40 Date of : 05/23/18 Significant findings: Patient is 67 yo man from with multiple medical problems including ischemic cardiomyopathy, CHF, CAD status post CABG, AICD, CVA with residual weakness and Seizure disorder who presented to [facility] ED with SOB. AMS, acute encephalopathy: consult Neurology suspect post icteral encephalopathy Acute on chronic seizure disorder; seizure precautions, on keppra and trileptal, added IV ativan prn breakthrough seizures Acute on chronic systolic congestive heart failure; LVEF 15%, treat with anti- failure medications, symptoms slightly improved, Cardiology following SAKINA, vasomotor nephropathy: change diuretics, repeat and monitor closely Right-sided pneumonia; community-acquired Oxygen titrate to O2 sats more than 90%, treated with antibiotics, cultures negative to date, Positive cardiac enzymes; secondary to acute on chronic CHF Medications o ptimized per Cardiology History of AICD; stable History of CVA with residual weakness; supportive care History of coronary artery disease status post CABG; continue Paroxysmal A. fib/flutter; rate controlled ,on amiodarone and Eliquis In hospital fall on 05/22/18, CT head negative: PT/OT and restraints On 05/23/2018 around 7:30pm a Code Blue was called ran by covering Hospitalist, Dr. White. He was successfully resuscitated. Multiple Code Blue called which were unsuccessful and he was pronounced at 2004. Multiple reasons for , probably the underlying condition of end stage heart failure most prominent. Time of : 2004 pm but defer to Dr. White Pronounced by Dr. White Cause of : suspected due to CHF
[2018-05-24] MEDS ORDERED: TOPROL XL PO SCH (10:00)
== END 2018-05-23 23:00 | DRG 291 ==
LOC: ED 02:27 → 4A 05:40 → CC1 05-23 19:45
PROVIDERS: ADMIT Internal Medicine; ATTEND Internal Medicine
PROC: 0BH18EZ Insertion of Endotracheal Airway into Trachea, Via Natural or Artificial Opening Endoscopic (ICD-10-PCS; principal; 2018-05-23)
DX: I50.23 Acute on chronic systolic (congestive) heart failure (principal); J18.9 Pneumonia, unspecified organism; N17.0 Acute kidney failure with tubular necrosis; I69.354 Hemiplegia and hemiparesis following cerebral infarction affecting left non-dominant side; I42.0 Dilated cardiomyopathy; I48.92 Unspecified atrial flutter; Z60.2 Problems related to living alone; I48.0 Paroxysmal atrial fibrillation; G43.909 Migraine, unspecified, not intractable, without status migrainosus; I25.10 Atherosclerotic heart disease of native coronary artery without angina pectoris; W18.30XA Fall on same level, unspecified, initial encounter; Y92.238 Other place in hospital as the place of occurrence of the external cause; I11.0 Hypertensive heart disease with heart failure; K21.9 Gastro-esophageal reflux disease without esophagitis; J44.9 Chronic obstructive pulmonary disease, unspecified; Z95.1 Presence of aortocoronary bypass graft; Z87.891 Personal history of nicotine dependence; Z79.899 Other long term (current) drug therapy; Z79.01 Long term (current) use of anticoagulants; Z79.82 Long term (current) use of aspirin; Z95.810 Presence of automatic (implantable) cardiac defibrillator; Y93.89 Activity, other specified; Y99.8 Other external cause status
CPT/HCPCS: 36415; 70450; 71045; 71046; 80048; 80061; 82140; 82550; 82962; 83735; 83880; 84484; 85025; 87040; 93005; 93010; 94640; 94760; G0378; A9270-GY; J0171; J0696; J1940; J2260; J2543; J7030